=== PATIENT | male | born 1950 | race Caucasian/White ===

== ENCOUNTER 2016-06-22 12:16 | Emergency (ER) | payer MEDICARE, OTHER ==
[~2016-06-22] VITALS: Ht 200.7 cm; Wt 67.0 kg
[~2016-06-22 12:16] MED LIST: ALLO100T PO; ASPI-535 PO; ATOR10TA23 PO; CLOP75TA27 PO; CYCL-319 PO; HYDR-3498 PO; HYDR500C14 PO; IBUP-1542 PO; LEVO750T8 PO; LORA1TAB54 PO; METO-448 PO; NAPR-685 PO; OXYM15SP34 NASAL; TAMS-14 PO
[2016-06-22 12:32] VITALS: Ht 200.7 cm; Wt 67.0 kg
[2016-06-22] MEDS ORDERED: DICLOFENAC SODIUM 37.5 MG/ML VIAL IV STA (13:42)
[2016-06-22 14:25] LABS: ADD SCAN DIFF NO
[2016-06-22 14:29] LABS: BASOPHILS % 0.9 % (0.0-2.0); EOSINOPHILS # 0.1 10^3/ul (0.0-0.5); EOSINOPHILS % 1.7 % (0.0-7.0); HEMATOCRIT 35.7 % (42.0-52.0); HEMOGLOBIN 12.2 g/dl (14.0-18.0); LYMPHOCYTES # 0.9 10^3/ul (0.8-2.9); LYMPHOCYTES % 21.1 % (15.0-51.0); MEAN CORPUSCULAR HEMOGLOBIN 39.6 pg (29.0-33.0); MEAN CORPUSCULAR HGB CONC 34.2 g/dl (32.0-37.0); MEAN CORPUSCULAR VOLUME 115.9 fl (82.0-101.0); MONOCYTE # 0.2 10^3/ul (0.3-0.9); MONOCYTES % 5.7 % (0.0-11.0); NEUTROPHILS % 69.9 % (39.0-77.0); PLATELET COUNT 393 10^3/UL (140-415); RED BLOOD COUNT 3.08 10^6/ul (4.70-6.10); RED CELL DISTRIBUTION WIDTH 19.6 % (11.5-14.5); WHITE BLOOD COUNT 4.2 10^3/ul (4.8-10.8)
[2016-06-22 14:36] LABS: MEAN PLATELET VOLUME 12.3 fl (7.4-10.4)
[2016-06-22 14:38] LABS: ALBUMIN 4.6 g/dl (3.3-4.9)
[2016-06-22 14:40] LABS: ALBUMIN/GLOBULIN RATIO 1.48; BILIRUBIN,INDIRECT 0.7 mg/dl (0-1.1); BILIRUBIN,TOTAL 0.7 mg/dl (0.2-1.3); CREATININE 0.92 mg/dl (0.61-1.24); TOTAL PROTEIN 7.7 g/dl (6.1-8.1)
[2016-06-22 14:41] LABS: CALCIUM 8.7 mg/dl (8.4-10.2)
[2016-06-22 15:10] LABS: URINE BLOOD (Dip) POC Trace-intact (NEGATIVE)
--- NOTE | 2016-06-22 15:49 | RADRPT ---
PROCEDURE: CT Abdomen and Pelvis without contrast. CLINICAL INDICATION: Abdominal pain TECHNIQUE: CT scan of the abdomen and pelvis was performed on a multidetector high-resolution CT s canner without intravenous contrast. Coronal and sagittal reformatted images were obtained from the axial source images. Images were reviewed on a high-resolution PACS workstation. The total exam CTD I equals 8mGy and the total exam DLP equals 439mGy-cm. One or more of the following dose reduction t echniques were used: Automated exposure control, Adjustment of the mA and/or kV according to patient size, and/or use of iterative reconstruction technique. COMPARISON: Abdominal CT 11/05/15 FINDINGS: Evaluation of the solid organs is limited given the lack of intravenous contrast administration. Bibasilar scarring. The liver, adrenals and pancreas are grossly unremarkable. Splenomegaly is unchanged. No focal pericholecystic inflammatory changes. No hydronephrosis. Similar appearance of bilateral nonobstructing renal stones. No bowel obstruction. The appendix is not well visualized but there is no focal inflammatory strand ing in the right lower quadrant. No significant retroperitoneal lymphadenopathy, ascites or evidence of pneumoperitoneum. Degenerative changes of the spine. Mild aortic atherosclerosis. IMPRESSION: Similar appearance of bilateral nonobstructing renal stones since 11/05/15. No evidence of bowel obstruction. Splenomegaly is unchanged from prior. RPTAT: AA .Jarred Figueroa MD, MD Date Time Electronically viewed and signed by .Jarred Figueroa MD, on 06/22/2016 15:49 .T/
[2016-06-22] MEDS ORDERED: CEFTRIAXONE 1 GM/50 ML (PMX) 50 ML IVPB ONE (16:30)
[2016-06-22] MEDS ORDERED: CIPR500T4 PO (17:05)
[2016-06-22] MEDS ORDERED: TRAM50TA2 PO (17:05)
--- NOTE | 2016-06-22 17:08 | ERD ---
ER Documentation Chief Complaint Date/Time DATE: 06/22/16 TIME: 17:07 Chief Complaint LEFT GROIN PAIN X2 DAYS HPI This 65-year-old male complains of left abdominal pain for 2 days. Denies fevers, vomiting, urinary complaints. He has a history of stones and myelodysplasia. Denies constipation or diarrhea ROS All systems reviewed and are negative except as per history of present illness. Medications Home Meds Active Scripts Tramadol HCl (Tramadol HCl) 50 Mg Tablet, 50 MG PO Q4 Y for PAIN, #15 TAB Prov:MAGGIE LOGAN MD 06/22/16 Ciprofloxacin Hcl* (Ciprofloxacin Hcl*) 500 Mg Tablet, 500 MG PO BID for 7 Days , TAB Prov:MAGGIE LOGAN MD 06/22/16 Oxymetazoline Hcl* (Afrin [place]*) 0.05% - 15 Ml [place], 2 SPRAYS NASAL QHS, #1 EA to each nostril Prov:PATTI MC DO 02/01/16 Loratadine/Pseudoephedrine* (Claritin-D* 12 Hr) 5-120 Mg Tab.er.12h, 1 TAB PO Q12, #20 TAB.SA Prov:PATTI MC DO 02/01/16 Levofloxacin* (Levofloxacin*) 750 Mg Tablet, 750 MG PO Q48H for 14 Days Prov:OLIVER PHAN 05/14/14 Reported Medications Ibuprofen* (Ibuprofen*) 600 Mg Tablet, 600 MG PO Q6-8 HOURS, TAB 06/07/14 Hydrocodone Bit-Acetaminophen* ([place]*) 5-325 Mg Tab, 1 TAB PO Q6 Y for PAIN, TAB 06/07/14 Cyclobenzaprine Hcl* (Cyclobenzaprine Hcl*) 10 Mg Tablet, 10 MG PO TID, TAB 06/07/14 Clopidogrel Bisulfate (Clopidogrel) 75 Mg Tablet, 75 MG PO DAILY, TAB 06/07/14 Tamsulosin Hcl* (Flomax*) 0.4 Mg Cap.er.24h, 0.4 MG PO HS, CAP 06/07/14 Naproxen* (Naproxen*) 375 Mg Tablet, 375 MG PO BID, TAB 06/07/14 Metoprolol Tartrate* (Lopressor*) 25 Mg Tab, 25 MG PO DAILY 04/10/13 Hydroxyurea* (Hydrea*) 500 Mg Capsule, 500 MG PO TID 04/10/13 Allopurinol* (Allopurinol*) 100 Mg Tablet, 100 MG PO TID 04/12/12 Atorvastatin (Lipitor) 10 Mg Tablet, 10 MG PO DAILY 10/27/10 Aspirin Ec (Aspir 81) 81 Mg Tablet.dr, 81 MG PO DAILY 10/27/10 Allergies Allergies: Coded Allergies: No Known Allergy (Verified , 06/07/14) PMhx/Soc History of Surgery: Yes (CABG) Anesthesia Reaction: No Hx Neurological Disorder: No Hx Respiratory Disorders: No Hx Cardiac Disorders: Yes (HTN) Hx Psychiatric Problems: No Hx Miscellaneous Medical Probl: Yes (BPH) Hx Alcohol Use: No Hx Substance Use: No Hx Tobacco Use: No Smoking Status: Never smoker Physical Exam Vitals Vital Signs Date Time Temp Pulse Resp B/P Pulse Ox O2 Delivery O2 Flow Rate FiO2 06/22/16 12:32 98.3 67 20 123/66 98 Physical Exam Const: [] Alert, [id number] per Head: Atraumatic Eyes: Normal Conjunctiva ENT: Normal External Ears, Nose and Mouth. Neck: Full range of motion..~ No meningismus. Resp: Clear to auscultation bilaterally Cardio: Regular rate and rhythm, no murmurs Abd: Soft, minimal left lower quadrant tenderness. No tenderness at McBurney 's point no rebound., non distended. Normal bowel sounds Skin: No petechiae or rashes Back: No midline or flank tenderness Ext: No cyanosis, or edema Neur: Awake and alert Psych: Normal Mood and Affect Result Diagram: 06/22/16 1415 06/22/16 1415 Results 24 hrs Laboratory Tests Test 06/22/16 14:15 06/22/16 15:09 White Blood Count 4.210^3/ul Red Blood Count 3.0810^6/ul Hemoglobin 12.2g/dl Hematocrit 35.7% Mean Corpuscular Volume 115.9fl Mean Corpuscular Hemoglobin 39.6pg Mean Corpuscular Hemoglobin Concent 34.2g/dl Red Cell Distribution Width 19.6% Platelet Count 37709^3/UL Mean Platelet Volume 12.3fl Neutrophils % 69.9% Lymphocytes % 21.1% Monocytes % 5.7% Eosinophils % 1.7% Basophils % 0.9% Nucleated Red Blood Cells % 0.0/100WBC Neutrophils # 3.010^3/ul Lymphocytes # 0.910^3/ul Monocytes # 0.210^3/ul Eosinophils # 0.110^3/ul Basophils # 0.010^3/ul Nucleated Red Blood Cells # 0.010^3/ul Sodium Level 138mmol/L Potassium Level 5.0mmol/L Chloride Level 102mmol/L Carbon Dioxide Level 25mmol/L Anion Gap 16 Blood Urea Nitrogen 19mg/dl Creatinine 0.92mg/dl Glucose Level 87mg/dl Calcium Level 8.7mg/dl Total Bilirubin 0.7mg/dl Direct Bilirubin 0.00mg/dl Indirect Bilirubin 0.7mg/dl Aspartate Amino Transf (AST/SGOT) 38IU/L Alanine Aminotransferase (ALT/SGPT) 34IU/L Alkaline Phosphatase 67IU/L Total Protein 7.7g/dl Albumin 4.6g/dl Globulin 3.10g/dl Albumin/Globulin Ratio 1.48 Lipase 44U/L Bedside Urine pH (LAB) 5.5 Bedside Urine Protein (LAB) Negative Bedside Urine Glucose (UA) Negative Bedside Urine Ketones (LAB) Negative Bedside Urine Blood Trace-intact Bedside Urine Nitrite (LAB) Negative Bedside Urine Leukocyte Esterase (L 2+ Current Medications Medications (Trade) Dose Ordered Sig/Tamiko Route PRN Reason Start Time Stop Time Status Last Admin Dose Admin Diclofenac Sodium 37.5 mg 37.5 mg ONCE STAT IV 06/22/16 13:42 06/22/16 13:44 DC Ceftriaxone Sodium (Rocephin) 50 ml @ 100 mls/hr ONCE ONCE IVPB 06/22/16 16:30 06/22/16 16:59 DC 06/22/16 16:13 Procedures/MDM I views obtained. CBC shows signs of chronic myelodysplasia without leukocytosis. CMP is normal. Urine shows 2+ leukocytes and was sent for culture. Patient had a CT scan of the abdomen pelvis noncontrast which shows undescended renal stones with NO additional acute findings. Patient was given Rocephin 1 g IV, and Dolgic IV. Patient signs symptoms of left lower abdominal pain of uncertain etiology with signs of UTI. Doubt this is septic stone as he has no leukocytosis, fever, vomiting and stones are undescended there is no hydronephrosis. Patient will be discharged home with a prescription for Cipro, tramadol instructions for clear fluids instructed to follow-up with primary doctor this week return to the ER for new or worsening symptoms. The patient was stable with no new complaints during the ER course. Clinically, there is no current evidence to suggest meningitis, sepsis, acute abdomen, pneumonia, acute coronary syndrome, pulmonary embolism, or any other emergent condition appearing to require further evaluation or hospitalization. The patient should certainly return for any new or worsening symptoms per the aftercare instructions. They should otherwise follow-up with her primary care doctor for reevaluation this week. Departure Diagnosis: Primary Impression: UTI (urinary tract infection) Urinary tract infection type: acute cystitis Hematuria presence: without hematuria Qualified Code: N30.00 - Acute cystitis without hematuria Additional Impression: Kidney stone Condition: Stable Patient Instructions: Understanding Urinary Tract Infections (UTIs), Kidney Stone, Undescended (No Symptoms) Additional Instructions: CT shows small stones in the kidney but doubt cause of symptoms. There are signs of infection in the urine. Recheck for fevers, vomiting, new or worsening symptoms. Drink plenty of fluids at home. See primary doctor this week for follow-up. MAGGIE LOGAN MD Jun 22, 2016 17:08
[2016-06-22 17:19] VITALS: BP 121/62; PULSE 71; RESP 20; TEMP 98.3
== END 2016-06-22 17:26 | disposition home or self-care (01) ==
LOC: FTE 12:16
DX: N30.00 Acute cystitis without hematuria (principal); N20.0 Calculus of kidney; I10 Essential (primary) hypertension; Z79.82 Long term (current) use of aspirin
CPT/HCPCS: 36415; 74176; 80053; 81003; 83690; 85025; 96374; 99285; J0696

== ENCOUNTER 2016-08-26 11:56 | Emergency (ER) | payer MEDICARE, OTHER ==
[~2016-08-26] VITALS: Wt 70.4 kg
[~2016-08-26 11:56] MED LIST changes: +CIPR500T4 PO; +TRAM50TA2 PO
[2016-08-26 12:29] LABS: ADD SCAN DIFF NO
[2016-08-26] MEDS ORDERED: DIAZEPAM 5 MG/ML SYG IV ONE (12:30)
[2016-08-26] MEDS ORDERED: HYDR-902 PO (12:32)
[2016-08-26] MEDS ORDERED: HYDR500C3 PO (12:33)
[2016-08-26] MEDS ORDERED: METO25TA7 PO (12:34)
[2016-08-26] MEDS ORDERED: OMEP20CA16 PO (12:35)
[2016-08-26] MEDS ORDERED: NIT4 SL (12:36)
[2016-08-26] MEDS ORDERED: DOCU-159 PO (12:36)
[2016-08-26 12:38] LABS: ABNORMAL IP MESSAGE 1; BASOPHIL # 0.1 10^3/ul (0.0-0.1); BASOPHILS % 0.9 % (0.0-2.0); EOSINOPHILS # 0.3 10^3/ul (0.0-0.5); EOSINOPHILS % 2.5 % (0.0-7.0); HEMATOCRIT 31.5 % (42.0-52.0); LYMPHOCYTES # 1.9 10^3/ul (0.8-2.9); LYMPHOCYTES % 16.7 % (15.0-51.0); MEAN CORPUSCULAR HEMOGLOBIN 42.4 pg (29.0-33.0); MEAN CORPUSCULAR HGB CONC 34.6 g/dl (32.0-37.0); MEAN CORPUSCULAR VOLUME 122.6 fl (82.0-101.0); MEAN PLATELET VOLUME 11.5 fl (7.4-10.4); MONOCYTE # 0.5 10^3/ul (0.3-0.9); NEUTROPHIL # 8.4 10^3/ul (1.6-7.5); NEUTROPHILS % 75.2 % (39.0-77.0); RED BLOOD COUNT 2.57 10^6/ul (4.70-6.10)
[2016-08-26 12:48] LABS: INR 1.19; PROTIME 15.2 Sec (12.2-14.2); PT RATIO 1.2
[2016-08-26 12:49] LABS: PARTIAL THROMBOPLASTIN TIME 38.3 Sec (25.0-35.0)
[2016-08-26 12:50] LABS: ANION GAP 13 (8-16); BLOOD UREA NITROGEN 17 mg/dl (7-20); CALCIUM 8.9 mg/dl (8.4-10.2); CARBON DIOXIDE 24 mmol/L (21-31); CHLORIDE 107 mmol/L (97-110); CREATININE 0.98 mg/dl (0.61-1.24); GLUCOSE 86 mg/dl (70-220); POTASSIUM 4.7 mmol/L (3.5-5.1); SODIUM 139 mmol/L (135-144)
[2016-08-26 13:06] LABS: TROPONIN-I < 0.012 ng/ml (0.00-0.12)
--- NOTE | 2016-08-26 13:07 | RADRPT ---
PROCEDURE: Chest x-ray CLINICAL INDICATION: Chest pain TECHNIQUE: Chest single view COMPARISON: 06/07/2014 FINDINGS: As before there post thoracotomy changes. Stable cardiomegaly and mild atherosclerotic aortic calci fication is seen. There is a loop recorder device in the left chest. The pulmonary vessels are nor mal in caliber. The lungs are clear. The costophrenic angles are sharp. The visualized bony thora x is unremarkable. IMPRESSION: 1. Stable mild cardiomegaly and an sclerotic aortic calcification. 2. Loop recorder device. 3. Status post CABG RPTAT: HH .Feliberto Kumar MD, MD Date Time Electronically viewed and signed by .Feliberto Kumar MD, on 08/26/2016 13:06 .W/
[2016-08-26] MEDS ORDERED: ONDANSETRON 4 MG INJ IV STA (13:15)
[2016-08-26] MEDS ORDERED: morphine 4 MG/ML VIAL IV STA (13:15)
--- NOTE | 2016-08-26 13:23 | RADRPT ---
PROCEDURE: CT cervical spine without contrast CLINICAL INDICATION: Neck pain. No trauma. TECHNIQUE: CT scan of the cervical spine was [facility] No IV contrast was administered. Coronal and sagittal reformatted images were obtained from th e axial source images. Images were reviewed on a high-resolution PACS workstation. One or more the f ollowing does reduction techniques were utilized: Automated exposure control, adjustment of the mA/ or kV according to patient's size, or use of iterative reconstruction technique. Exam CTDI = 22.19 m Gy and the DLP = 461.7 mGy-cm. COMPARISON: None available. FINDINGS: There is maintenance of the normal cervical lordosis. Alignment remains intact. No acute fracture or dislocation is seen. The vertebral body heights are preserved. No mass, hematoma, or other soft tissue abnormality is seen. There are multilevel degenerative changes of the cervical spine, manifested by osteophytosis, vacuum disk phenomenon and disc height narrowing, severe at C6-C7 and mild at C4-C5 and C5-C6. Uncovertebr al osteophytes and facet arthropathy result in multilevel foraminal stenosis: at C3-C4 mild bilatera lly, at C4-C5 moderate on the right and mild on the left, at C5-C6 mild bilaterally, and at C6-C7 mi ld to moderate bilaterally. Posterior disk osteophyte complexes contribute to mild to moderate spin al canal narrowing at C6-C7 and mild at C4-C5 and C5-C6. Scarring in bilateral lung apices are noted. IMPRESSION: 1. No acute fracture or subluxation. 2. Multilevel discogenic disease of the cervical spine, severe at C6-C7 and mild at C4-C5 and C5-C6 . 3. Posterior disk osteophyte complexes contribute to mild to moderate spinal canal narrowing at C6- C7 and mild at C4-C5 and C5-C6. 4. Multilevel mild to moderate foraminal stenosis as outlined in details in findings. RPTAT: UU .Haritha Barney MD, MD Date Time Electronically viewed and signed by .Haritha Barney MD, MD on 08/26/2016 13:22 .N/
--- NOTE | 2016-08-26 13:33 | ERD ---
ER Documentation Chief Complaint Date/Time DATE: 08/26/16 TIME: 13:29 Chief Complaint non traumatic left side neck pain, no neuro def. no cp or sob HPI This is a 66-year-old male presents to the emergency room for evaluation of neck pain. The patient states that he has a history of chronic back pain and is taking [place] at home. He states that [place] yesterday and spent 4 hours driving there, and 4 hours driving back. He states that his pain is in the left side of his neck and is an achy pain worse with movement of the neck. He denies any fevers or chills or nausea or vomiting associated with this ROS All systems reviewed and are negative except as per history of present illness. Medications Home Meds Reported Medications Docusate Sodium* (Docusate Sodium*) 100 Mg Capsule, 100 MG PO TID, #60 CAP 08/26/16 Nitroglycerin* (Nitrostat*) 0.4 Mg Tab.subl, 0.4 MG SL Q5MIN Y for CHEST PAIN, BOTTLE 08/26/16 Omeprazole* (Omeprazole*) 20 Mg Capsule.dr, 20 MG PO DAILY, #30 CAP 08/26/16 Metoprolol Succinate* (Toprol XL*) 25 Mg Tab.sr.24h, 25 MG PO BID, #30 TAB 08/26/16 Hydroxyurea* (Hydroxyurea*) 500 Mg Capsule, 1500 MG PO DAILY, CAP 08/26/16 Hydrocodone/Acetaminophen ([place] 10-325 Tablet) 1 Each Tablet, 1 EACH PO Q4, TAB 08/26/16 Ibuprofen* (Ibuprofen*) 600 Mg Tablet, 600 MG PO Q6-8 HOURS, TAB 06/07/14 Tamsulosin Hcl* (Flomax*) 0.4 Mg Cap.er.24h, 0.4 MG PO HS, CAP 06/07/14 Allopurinol* (Allopurinol*) 100 Mg Tablet, 100 MG PO TID 04/12/12 Aspirin Ec (Aspir 81) 81 Mg Tablet.dr, 81 MG PO DAILY 10/27/10 Discontinued Reported Medications Hydrocodone Bit-Acetaminophen* ([place]*) 5-325 Mg Tab, 1 TAB PO Q6 Y for PAIN, TAB 06/07/14 Cyclobenzaprine Hcl* (Cyclobenzaprine Hcl*) 10 Mg Tablet, 10 MG PO TID, TAB 06/07/14 Clopidogrel Bisulfate (Clopidogrel) 75 Mg Tablet, 75 MG PO DAILY, TAB 06/07/14 Naproxen* (Naproxen*) 375 Mg Tablet, 375 MG PO BID, TAB 06/07/14 Metoprolol Tartrate* (Lopressor*) 25 Mg Tab, 25 MG PO DAILY 04/10/13 Hydroxyurea* (Hydrea*) 500 Mg Capsule, 500 MG PO TID 04/10/13 Atorvastatin (Lipitor) 10 Mg Tablet, 10 MG PO DAILY 10/27/10 Discontinued Scripts Tramadol HCl (Tramadol HCl) 50 Mg Tablet, 50 MG PO Q4 Y for PAIN, #15 TAB Prov:MAGGIE LOGAN MD 06/22/16 Ciprofloxacin Hcl* (Ciprofloxacin Hcl*) 500 Mg Tablet, 500 MG PO BID for 7 Days , TAB Prov:MAGGIE LOGAN MD 06/22/16 Oxymetazoline Hcl* (Afrin [place]*) 0.05% - 15 Ml [place], 2 SPRAYS NASAL QHS, #1 EA to each nostril Prov:PATTI MC DO 02/01/16 Loratadine/Pseudoephedrine* (Claritin-D* 12 Hr) 5-120 Mg Tab.er.12h, 1 TAB PO Q12, #20 TAB.SA Prov:PATTI MC DO 02/01/16 Levofloxacin* (Levofloxacin*) 750 Mg Tablet, 750 MG PO Q48H for 14 Days Prov:OLIVER PHAN 05/14/14 Allergies Allergies: Coded Allergies: No Known Allergy (Verified , 08/26/16) PMhx/Soc History of Surgery: Yes (CABG) Anesthesia Reaction: No Hx Neurological Disorder: No Hx Respiratory Disorders: No Hx Cardiac Disorders: Yes (HTN) Hx Psychiatric Problems: No Hx Miscellaneous Medical Probl: Yes (BPH) Hx Alcohol Use: No Hx Substance Use: No Hx Tobacco Use: No Smoking Status: Former smoker Physical Exam Vitals Vital Signs Date Time Temp Pulse Resp B/P Pulse Ox O2 Delivery O2 Flow Rate FiO2 08/26/16 12:08 98.1 67 20 134/75 99 08/26/16 11:59 Nasal Cannula 1 Physical Exam INITIAL VITAL SIGNS: Reviewed by me GENERAL: The patient is well developed and appropriate for usual state of health in no apparent distress HEENT: Pupils equal, round, and reactive to light. EOMI. There is no scleral icterus. NECK: C-spine is soft and supple, there is no meningismus. There is no cervical lymphadenopathy. LUNGS: Clear to auscultation bilaterally. There are no rales, wheezes or rhonchi. HEART: Regular rate and rhythm, no murmurs, clicks, rubs or gallops. ABDOMEN: Soft, non-tender, non-distended. There are bowel sounds in all four quadrants. No rebound or guarding. EXTREMITIES: There is no peripheral cyanosis or edema. No focal swelling or erythema. NEUROLOGICAL: The patient moves all four extremities with 5/5 strength. Cranial nerves II - XII are intact. Normal gait. Alert and oriented SKIN: There is no apparent rash or petechiae. Musculoskeletal: Tender to palpation in the left paraspinal muscles of the cervical spine from C3 to see 7 on the left, no gross step-offs or deformities. HEME/LYMPHATIC: There is no evidence of excessive bruising or lymphedema. PSYCHIATRIC: The patient does not appear anxious or depressed. Result Diagram: 08/26/16 1214 08/26/16 1214 Results 24 hrs Laboratory Tests Test 08/26/16 12:14 White Blood Count 11.210^3/ul Red Blood Count 2.5710^6/ul Hemoglobin 10.9g/dl Hematocrit 31.5% Mean Corpuscular Volume 122.6fl Mean Corpuscular Hemoglobin 42.4pg Mean Corpuscular Hemoglobin Concent 34.6g/dl Red Cell Distribution Width % Platelet Count 922949^3/UL Mean Platelet Volume 11.5fl Neutrophils % 75.2% Lymphocytes % 16.7% Monocytes % 4.0% Eosinophils % 2.5% Basophils % 0.9% Nucleated Red Blood Cells % 0.0/100WBC Neutrophils # 8.410^3/ul Lymphocytes # 1.910^3/ul Monocytes # 0.510^3/ul Eosinophils # 0.310^3/ul Basophils # 0.110^3/ul Nucleated Red Blood Cells # 0.010^3/ul Prothrombin Time 15.2Sec Prothrombin Time Ratio 1.2 INR International Normalized Ratio 1.19 Activated Partial Thromboplast Time 38.3Sec Sodium Level 139mmol/L Potassium Level 4.7mmol/L Chloride Level 107mmol/L Carbon Dioxide Level 24mmol/L Anion Gap 13 Blood Urea Nitrogen 17mg/dl Creatinine 0.98mg/dl Glucose Level 86mg/dl Calcium Level 8.9mg/dl Troponin I < 0.012ng/ml Current Medications Medications (Trade) Dose Ordered Sig/Tamiko Route PRN Reason Start Time Stop Time Status Last Admin Dose Admin Diazepam (Valium) 5 mg ONCE ONCE IV 08/26/16 12:30 08/26/16 12:31 DC 08/26/16 12:14 Ondansetron HCl (Zofran Inj) 4 mg ONCE STAT IV 08/26/16 13:15 08/26/16 13:17 DC 08/26/16 13:22 Morphine Sulfate (morphine) 4 mg ONCE STAT IV 08/26/16 13:15 08/26/16 13:17 DC 08/26/16 13:24 Procedures/MDM Chest X-ray 1V Interpreted by me: Soft Tissue: No acute abnormalities Bones: No acute abnormalities Mediastinum/Cardiac Silhouette/Lungs: [No acute abnormalities] CT cervical spine without: 1. No acute fracture or subluxation. 2. Multilevel discogenic disease of the cervical spine, severe at C6-C7 and mild at C4-C5 and C5-C6. 3. Posterior disk osteophyte complexes contribute to mild to moderate spinal canal narrowing at C6-C7 and mild at C4-C5 and C5-C6. 4. Multilevel mild to moderate foraminal stenosis as outlined in details in findings. EKG: Rate/Rhythm: [Normal Sinus Rhythm] QRS, ST, T-waves: [No changes consistent w/ acute ischemia] Impression: [No evidence of ischemia or arrhythmia] This is a 66-year-old male who presents to the emergency room for evaluation of neck pain. When I evaluated his pain the patient had pain on the left side of his neck, no meningismus, negative Kernig sign, negative Brudzinski sign. The patient was afebrile. Lab work including a troponin is within normal limits except for an elevated platelet count. This patient was given volume and upon my reevaluation he states is feeling much better. CT of the cervical spine does not reveal any acute fractures. This patient will be discharged at this time with a prescription for Valium to take at night before he goes to sleep. I advised him he needs follow-up with his primary care physician. He does verbalize understanding. Departure Diagnosis: Primary Impression: Cervical strain, acute Additional Impressions: Neck pain Macrocytic anemia Condition: Stable DONNA ODELL DO Aug 26, 2016 13:33
[2016-08-26] MEDS ORDERED: DIAZ-90 PO (13:34)
[2016-08-26 13:38] LABS: PLATELET COUNT 1162 10^3/UL (140-415)
[2016-08-26 13:39] LABS: HEMOGLOBIN 10.9 g/dl (14.0-18.0)
[2016-08-26 14:00] VITALS: BP 133/60; PULSE 66; RESP 18; TEMP 98.1
[2016-08-27 17:42] LABS: WHITE BLOOD COUNT 11.2 10^3/ul (4.8-10.8)
== END 2016-08-26 14:51 | disposition home or self-care (01) ==
LOC: E/R 11:56
DX: S16.1XXA Strain of muscle, fascia and tendon at neck level, initial encounter (principal); D53.9 Nutritional anemia, unspecified; I10 Essential (primary) hypertension; R07.9 Chest pain, unspecified; X50.9XXA Other and unspecified overexertion or strenuous movements or postures, initial encounter; Y92.59 Other trade areas as the place of occurrence of the external cause; Z79.82 Long term (current) use of aspirin; Z95.1 Presence of aortocoronary bypass graft; Z87.891 Personal history of nicotine dependence
CPT/HCPCS: 71010; 72125; 80048; 84484; 85025; 85610; 85730; 93005; J2270; J2405; J3360; 36415; 96374; 96375

== ENCOUNTER 2016-08-26 20:37 | Emergency (ER) | payer MEDICARE, OTHER ==
[~2016-08-26] VITALS: Ht 170.2 cm; Wt 65.9 kg
[~2016-08-26 20:37] MED LIST changes: +DIAZ-90 PO; +DOCU-159 PO; +HYDR-902 PO; +HYDR500C3 PO; +METO25TA7 PO; +NIT4 SL; +OMEP20CA16 PO
[2016-08-26 21:29] VITALS: Ht 170.2 cm; Wt 65.9 kg
--- NOTE | 2016-08-27 03:15 | ERD ---
ER Documentation Chief Complaint Date/Time DATE: 08/27/16 TIME: 03:12 Chief Complaint pt seen here this morning for s/s, pt has not taken rx HPI 58-year-old male patient with no significant past medical history presents to the ED complaining of consistent neck pain. Patient was here earlier today on August 26, 2016 and received a full workup consisting of CT and cardiac workup which was negative for any cardiac abnormalities or fractures or dislocations. Patient was sent home with Valium and did not take the medication. Reports that he has been waiting in the ER for 3 hours and states that his pain is better. Reports that this is the same left-sided neck pain that he presented with earlier yesterday. Denies any fever, chills, neck stiffness, nausea, vomiting, chest pain, shortness of breath. States that he had some slight headache that was radiating from the neck region on the left side. Reports that dizziness is positional when he turns his head. Denies any head or neck injuries. ROS All systems reviewed and are negative except as per history of present illness. Medications Home Meds Active Scripts Diazepam* (Valium*) 5 Mg Tablet, 5 MG PO QHS Y for MUSCLE SPASMS, #7 TAB Prov:DONNA ODELL DO 08/26/16 Reported Medications Docusate Sodium* (Docusate Sodium*) 100 Mg Capsule, 100 MG PO TID, #60 CAP 08/26/16 Nitroglycerin* (Nitrostat*) 0.4 Mg Tab.subl, 0.4 MG SL Q5MIN Y for CHEST PAIN, BOTTLE 08/26/16 Omeprazole* (Omeprazole*) 20 Mg Capsule.dr, 20 MG PO DAILY, #30 CAP 08/26/16 Metoprolol Succinate* (Toprol XL*) 25 Mg Tab.sr.24h, 25 MG PO BID, #30 TAB 08/26/16 Hydroxyurea* (Hydroxyurea*) 500 Mg Capsule, 1500 MG PO DAILY, CAP 08/26/16 Hydrocodone/Acetaminophen ([place] 10-325 Tablet) 1 Each Tablet, 1 EACH PO Q4, TAB 08/26/16 Ibuprofen* (Ibuprofen*) 600 Mg Tablet, 600 MG PO Q6-8 HOURS, TAB 06/07/14 Tamsulosin Hcl* (Flomax*) 0.4 Mg Cap.er.24h, 0.4 MG PO HS, CAP 06/07/14 Allopurinol* (Allopurinol*) 100 Mg Tablet, 100 MG PO TID 04/12/12 Aspirin Ec (Aspir 81) 81 Mg Tablet.dr, 81 MG PO DAILY 10/27/10 Discontinued Reported Medications Hydrocodone Bit-Acetaminophen* ([place]*) 5-325 Mg Tab, 1 TAB PO Q6 Y for PAIN, TAB 06/07/14 Cyclobenzaprine Hcl* (Cyclobenzaprine Hcl*) 10 Mg Tablet, 10 MG PO TID, TAB 06/07/14 Clopidogrel Bisulfate (Clopidogrel) 75 Mg Tablet, 75 MG PO DAILY, TAB 06/07/14 Naproxen* (Naproxen*) 375 Mg Tablet, 375 MG PO BID, TAB 06/07/14 Metoprolol Tartrate* (Lopressor*) 25 Mg Tab, 25 MG PO DAILY 04/10/13 Hydroxyurea* (Hydrea*) 500 Mg Capsule, 500 MG PO TID 04/10/13 Atorvastatin (Lipitor) 10 Mg Tablet, 10 MG PO DAILY 10/27/10 Discontinued Scripts Tramadol HCl (Tramadol HCl) 50 Mg Tablet, 50 MG PO Q4 Y for PAIN, #15 TAB Prov:MAGGIE LOGAN MD 06/22/16 Ciprofloxacin Hcl* (Ciprofloxacin Hcl*) 500 Mg Tablet, 500 MG PO BID for 7 Days , TAB Prov:MAGGIE LOGAN MD 06/22/16 Oxymetazoline Hcl* (Afrin [place]*) 0.05% - 15 Ml [place], 2 SPRAYS NASAL QHS, #1 EA to each nostril Prov:PATTI MC DO 02/01/16 Loratadine/Pseudoephedrine* (Claritin-D* 12 Hr) 5-120 Mg Tab.er.12h, 1 TAB PO Q12, #20 TAB.SA Prov:PATTI MC DO 02/01/16 Levofloxacin* (Levofloxacin*) 750 Mg Tablet, 750 MG PO Q48H for 14 Days Prov:OLIVER PHAN 05/14/14 Allergies Allergies: Coded Allergies: No Known Allergy (Verified , 08/26/16) PMhx/Soc History of Surgery: Yes (CABG) Anesthesia Reaction: No Hx Neurological Disorder: No Hx Respiratory Disorders: No Hx Cardiac Disorders: Yes (HTN) Hx Psychiatric Problems: No Hx Miscellaneous Medical Probl: Yes (BPH) Hx Alcohol Use: No Hx Substance Use: No Hx Tobacco Use: No Smoking Status: Never smoker Physical Exam Vitals Vital Signs Date Time Temp Pulse Resp B/P Pulse Ox O2 Delivery O2 Flow Rate FiO2 08/26/16 21:29 98.7 63 20 142/69 100 Physical Exam Const: [id number], well-nourished. In no acute distress. Head: Atraumatic, normocephalic Eyes: Normal Conjunctiva without injection. No purulent discharge. PERRL. EOMI ENT: Normal external ear. Ear canal without erythema. Tympanic membrane pearly mahajan without effusion or bulging. Nasal canal clear with normal turbinates. Moist oropharynx without tonsillar exudates. Non-erythematous pharynx. Uvula midline. No drooling. No trismus. Neck: Full range of motion. No meningismus. No cervical lymphadenopathy. Resp: Clear to auscultation bilaterally. No wheezing, rhonchi, rales, or crackles. No accessory muscle use. No retractions. Cardio: Regular rate and rhythm. No murmurs, rubs or gallops. Abd: Soft, non tender, non distended. Normal bowel sounds. No palpable masses. No rebound tenderness. No guarding. Skin: No petechiae or rashes Back: No midline tenderness. No CVA tenderness. Ext: No cyanosis, or edema. Neur: Awake and alert. Psych: Normal Mood and Affect Procedures/MDM This is a 58-year-old male patient with no significant past medical history presents to the ED complaining of left sided neck pain and still presents with the same pain that he presented with on August 26, 2016. Patient had a negative workup. No leukocytosis. No anemia. CT was negative for any fractures or dislocations. No Kernig's or Brudzinski sign noted. No meningismus. Patient' s dizziness and headache could likely be deriving from the neck region. However a CT of the brain without contrast was ordered to further evaluate patient. Patient eloped prior to receiving CT and did not receive his discharge medications. Patient was neurologically intact. There is low suspicion for an right intracranial bleed, subarachnoid hemorrhage, meningitis, TIA, stroke, subdural hematoma, epidural hematoma, seizures or other emergent conditions. Departure Diagnosis: Primary Impression: Neck pain Condition: Stable Referrals: PENDING SALE TO [facility] YOU HAVE RECEIVED A MEDICAL SCREENING EXAM AND THE RESULTS INDICATE THAT YOU DO NOT HAVE A CONDITION THAT REQUIRES URGENT TREATMENT IN THE EMERGENCY DEPARTMENT. FURTHER EVALUATION AND TREATMENT OF YOUR CONDITION CAN WAIT UNTIL YOU ARE SEEN IN YOUR DOCTORS OFFICE WITHIN THE NEXT 1-2 DAYS. IT IS YOUR RESPONSIBILITY TO MAKE AN APPOINTMENT FOR FOLOW-UP CARE. IF YOU HAVE A PRIMARY DOCTOR --you should call your primary doctor and schedule an appointment IF YOU DO NOT HAVE A PRIMARY DOCTOR YOU CAN CALL OUR PHYSICIAN REFERRAL HOTLINE AT IF YOU CAN NOT AFFORD TO SEE A PHYSICIAN YOU CAN CHOSE FROM THE FOLLOWING [facility] [address] [facility]. [facility] [address] [facility] [address] [facility] [facility] [address] [facility] [address] [facility]. [facility] [address] [facility]. [facility] YOU HAVE RECEIVED A MEDICAL SCREENING EXAM AND THE RESULTS INDICATE THAT YOU DO NOT HAVE A CONDITION THAT REQUIRES URGENT TREATMENT IN THE EMERGENCY DEPARTMENT. FURTHER EVALUATION AND TREATMENT OF YOUR CONDITION CAN WAIT UNTIL YOU ARE SEEN IN YOUR DOCTORS OFFICE WITHIN THE NEXT 1-2 DAYS. IT IS YOUR RESPONSIBILITY TO MAKE AN APPOINTMENT FOR FOLOW-UP CARE. IF YOU HAVE A PRIMARY DOCTOR --you should call your primary doctor and schedule and appointment IF YOU DO NOT HAVE A PRIMARY DOCTOR YOU CAN CALL OUR PHYSICIAN REFERRAL HOTLINE AT . IF YOU CAN NOT AFFORD TO SEE A PHYSICIAN YOU CAN CHOSE FROM THE FOLLOWING [facility]: [facility] [address] [place] [address] [facility] [address] [place] [address] [facility] [address] [place] [address] [facility] EBONI SAVAGE PA-C Aug 27, 2016 03:15
== END 2016-08-26 23:23 | disposition left against medical advice (07) ==
LOC: FTE 20:37 → E/R 23:23
DX: M54.2 Cervicalgia (principal); I10 Essential (primary) hypertension; Z79.82 Long term (current) use of aspirin; Z95.1 Presence of aortocoronary bypass graft
CPT/HCPCS: 99283

== ENCOUNTER 2017-01-08 01:59 | Emergency (ER) | payer MEDICARE, OTHER ==
[~2017-01-08] VITALS: Ht 177.8 cm; Wt 67.0 kg
[~2017-01-08 01:59] MED LIST changes: -ATOR10TA23 PO; -CIPR500T4 PO; -CLOP75TA27 PO; -CYCL-319 PO; -HYDR-3498 PO; -HYDR500C14 PO; -LEVO750T8 PO; -LORA1TAB54 PO; +METO-335 PO; -METO-448 PO; -METO25TA7 PO; -NAPR-685 PO; -OXYM15SP34 NASAL; -TRAM50TA2 PO
[2017-01-08 02:06] VITALS: Ht 177.8 cm; Wt 67.0 kg
[2017-01-08 02:15] VITALS: TEMP 98.8
--- NOTE | 2017-01-08 02:18 | ERA ---
ER Documentation Chief Complaint Date/Time DATE: 01/08/17 TIME: 02:17 Chief Complaint weakness, cough x 10 days HPI The patient is a 66-year-old male, presenting to the ER because of persistent cough for the last 10 days, his fever, chills, neck pain, chest pain with exertion/vomiting/diaphoresis, abdominal pain, vomiting, dysuria, diarrhea. He complains of generalized weakness and chest discomfort with the cough. He denies smoking nor drinking Past Medical history: Anxiety, hypertension, BPH, gout, CAD Past surgical history: CABG ROS All systems reviewed and are negative except as per history of present illness. Medications Home Meds Active Scripts Albuterol Sulfate* (Proair HFA*) 8.5 Gm Hfa.aer.ad, 2 PUFF INH Q4, #1 INHALER Prov:NATHALIA GALARZA MD 01/08/17 Dextromethorphan Hb-Promethazine Hcl* (Promethazine DM* Syrup) 473 Ml Syrup, 10 ML PO Q6 Y for COUGH, #120 ML Prov:NATHALIA GALARZA MD 01/08/17 Azithromycin* (Zithromax*) 250 Mg Tablet, 250 MG PO .ZPACK DIRECTED, #6 TAB TAKE 500 MG (2 TABS) THE FIRST DAY THEN 250 MG (1 TAB) DAYS 2-5 Prov:NATHALIA GALARZA MD 01/08/17 Diazepam* (Valium*) 5 Mg Tablet, 5 MG PO QHS Y for MUSCLE SPASMS, #7 TAB Prov:DONNA ODELL DO 08/26/16 Reported Medications Tramadol Hcl* (Ultram*) 50 Mg Tablet, 50 MG PO Q6H Y for PAIN, TAB 01/08/17 Dicyclomine Hcl* (Bentyl*) 10 Mg Capsule, 10 MG PO QID, CAP 01/08/17 Docusate Sodium* (Docusate Sodium*) 100 Mg Capsule, 100 MG PO TID, #60 CAP 08/26/16 Nitroglycerin* (Nitrostat*) 0.4 Mg Tab.subl, 0.4 MG SL Q5MIN Y for CHEST PAIN, BOTTLE 08/26/16 Omeprazole* (Omeprazole*) 20 Mg Capsule.dr, 20 MG PO DAILY, #30 CAP 08/26/16 Metoprolol Succinate* (Toprol XL*) 25 Mg Tab.sr.24h, 25 MG PO BID, #30 TAB 08/26/16 Hydroxyurea* (Hydroxyurea*) 500 Mg Capsule, 1500 MG PO DAILY, CAP 08/26/16 Hydrocodone/Acetaminophen ([place] 10-325 Tablet) 1 Each Tablet, 1 EACH PO Q4, TAB 08/26/16 Ibuprofen* (Ibuprofen*) 600 Mg Tablet, 600 MG PO Q6-8 HOURS, TAB 06/07/14 Tamsulosin Hcl* (Flomax*) 0.4 Mg Cap.er.24h, 0.4 MG PO HS, CAP 06/07/14 Allopurinol* (Allopurinol*) 100 Mg Tablet, 100 MG PO TID 04/12/12 Aspirin Ec (Aspir 81) 81 Mg Tablet.dr, 81 MG PO DAILY 10/27/10 Allergies Allergies: Coded Allergies: No Known Allergy (Verified , 08/26/16) PMhx/Soc History of Surgery: Yes (CABG) Anesthesia Reaction: No Hx Neurological Disorder: No Hx Respiratory Disorders: No Hx Cardiac Disorders: Yes (HTN) Hx Psychiatric Problems: No Hx Miscellaneous Medical Probl: Yes (BPH) Hx Alcohol Use: No Hx Substance Use: No Hx Tobacco Use: No Physical Exam Vitals Vital Signs Date Time Temp Pulse Resp B/P Pulse Ox O2 Delivery O2 Flow Rate FiO2 01/08/17 04:00 74 16 90/69 100 Room Air 01/08/17 03:00 82 16 102/55 95 Room Air 01/08/17 02:30 74 22 97 21 01/08/17 02:15 Nasal Cannula 2 01/08/17 02:15 98.8 84 15 111/87 98 Room Air 01/08/17 02:06 97.8 67 20 117/60 97 Physical Exam Const: No acute distress. Head: Atraumatic. Eyes: Normal Conjunctiva. ENT: Normal External Ears, Nose and Mouth. Neck: Full range of motion. No meningismus. Resp: Bilateral expiratory wheezes and rhonchi Cardio: Regular rate and rhythm. Abd: Soft, non distended, normal bowel sounds, non tender. Skin: No petechiae or rashes. Back: No midline or flank tenderness. Ext: No cyanosis, or edema. Neur: Awake and alert. No focal deficit Psych: Normal Mood and Affect. Result Diagram: 10/14/17 0250 10/14/17 0250 Results 24 hrs Laboratory Tests Test 01/08/17 02:50 White Blood Count 4.210^3/ul Red Blood Count 2.5410^6/ul Hemoglobin 10.5g/dl Hematocrit 30.1% Mean Corpuscular Volume 118.5fl Mean Corpuscular Hemoglobin 41.3pg Mean Corpuscular Hemoglobin Concent 34.9g/dl Red Cell Distribution Width 13.4% Platelet Count 18285^3/UL Mean Platelet Volume 12.3fl Neutrophils % 69.8% Lymphocytes % 21.3% Monocytes % 7.2% Eosinophils % 0.7% Basophils % 0.5% Nucleated Red Blood Cells % 0.0/100WBC Neutrophils # 2.910^3/ul Lymphocytes # 0.910^3/ul Monocytes # 0.310^3/ul Eosinophils # 0.010^3/ul Basophils # 0.010^3/ul Nucleated Red Blood Cells # 0.010^3/ul Prothrombin Time 14.4Sec Prothrombin Time Ratio 1.1 INR International Normalized Ratio 1.12 Activated Partial Thromboplast Time 39.6Sec Sodium Level 140mmol/L Potassium Level 4.8mmol/L Chloride Level 104mmol/L Carbon Dioxide Level 26mmol/L Anion Gap 15 Blood Urea Nitrogen 17mg/dl Creatinine 1.15mg/dl Glucose Level 94mg/dl Lactic Acid Level 0.8mmol/L Calcium Level 8.6mg/dl Total Bilirubin 0.4mg/dl Direct Bilirubin 0.00mg/dl Indirect Bilirubin 0.4mg/dl Aspartate Amino Transf (AST/SGOT) 15IU/L Alanine Aminotransferase (ALT/SGPT) 25IU/L Alkaline Phosphatase 66IU/L Troponin I < 0.012ng/ml Total Protein 6.3g/dl Albumin 3.8g/dl Globulin 2.50g/dl Albumin/Globulin Ratio 1.52 Current Medications Medications (Trade) Dose Ordered Sig/Tamiko Route PRN Reason Start Time Stop Time Status Last Admin Dose Admin Levalbuterol (Xopenex Neb) 1.25 mg ONCE ONCE [facility] 01/08/17 02:30 01/08/17 02:31 DC 01/08/17 02:32 Ipratropium [place] (Atrovent 0.02% (Neb)) 0.5 mg ONCE ONCE [facility] 01/08/17 02:30 01/08/17 02:31 DC 01/08/17 02:35 Procedures/MDM [place] [id number] Radiology Main Line: [phone] DIAGNOSTIC IMAGING REPORT Patient: MARIELOS ENGLISH : 1950 Age: 66 Sex: M MR #: [id number] DOS: 01/08/17 0223 Ordering MD: NATHALIA GALARZA MD Location: E/R Room/Bed: PROCEDURE: Chest. CLINICAL INDICATION: Chest pain. TECHNIQUE: Single frontal view of the chest was obtained. COMPARISON: 08/26/2016. FINDINGS: Mediasternotomy wires are present. The cardiac silhouette is enlarged. The aortic arch is calcified. There is no focal consolidation, vascular congestion or pleural effusion. There is no pneumothorax. IMPRESSION: Mild cardiomegaly, stable. Aortic atherosclerosis. .Som Mercer MD, Date Time Electronically viewed and signed by .Som Mercer MD, MD on 01/08/2017 03:55 .T/ CC: NATHALIA GALARZA MD EKG: Read by emergency physician Rate/Rhythm: Normal Sinus Rhythm 87 beats/min QRS, ST, T-waves: No ST elevation, no T inversion, sinus arrhythmia, PVC Impression: Abnormal EKG MEDICAL MAKING DECISION: The patient is a 66-year-old male, resenting with acute bronchitis with wheezing. He was treated with Xopenex 1.25 mg and Atrovent 0.5 mg nebulizer for wheezing with good response The differential diagnoses considered include but are not limited to asthma, COPD, pneumonia, pulmonary embolus, pleural effusion, congestive heart failure. Departure Diagnosis: Primary Impression: Bronchitis Additional Impression: Anemia Condition: Good Comments He was discharged with Zithromax, Phenergan DM, albuterol MDI I discussed the findings with the patient. I advised the patient to follow-up with the primary physician in about 1-2 days, sooner if needed and return if any concern. NATHALIA GALARZA MD Jan 08, 2017 02:18
[2017-01-08] MEDS ORDERED: IPRATROPIUM (NEB) 0.5 MG/2.5 ML AMP HHN ONE (02:30)
[2017-01-08] MEDS ORDERED: LEVALBUTEROL (NEB) 1.25 MG/0.5 ML AMP HHN ONE (02:30)
[2017-01-08 03:21] LABS: BASOPHILS % 0.5 % (0.0-2.0); EOSINOPHILS % 0.7 % (0.0-7.0); HEMATOCRIT 30.1 % (42.0-52.0); HEMOGLOBIN 10.5 g/dl (14.0-18.0); LYMPHOCYTES # 0.9 10^3/ul (0.8-2.9); LYMPHOCYTES % 21.3 % (15.0-51.0); MEAN CORPUSCULAR HEMOGLOBIN 41.3 pg (29.0-33.0); MEAN CORPUSCULAR HGB CONC 34.9 g/dl (32.0-37.0); MEAN CORPUSCULAR VOLUME 118.5 fl (82.0-101.0); MEAN PLATELET VOLUME 12.3 fl (7.4-10.4); MONOCYTE # 0.3 10^3/ul (0.3-0.9); MONOCYTES % 7.2 % (0.0-11.0); NEUTROPHIL # 2.9 10^3/ul (1.6-7.5); NEUTROPHILS % 69.8 % (39.0-77.0); PLATELET COUNT 354 10^3/UL (140-415); RED BLOOD COUNT 2.54 10^6/ul (4.70-6.10); RED CELL DISTRIBUTION WIDTH 13.4 % (11.5-14.5); WHITE BLOOD COUNT 4.2 10^3/ul (4.8-10.8)
--- NOTE | 2017-01-08 03:55 | RADRPT ---
PROCEDURE: Chest. CLINICAL INDICATION: Chest pain. TECHNIQUE: Single frontal view of the chest was obtained. COMPARISON: 08/26/2016. FINDINGS: Mediasternotomy wires are present. The cardiac silhouette is enlarged. The aortic arch is calcified . There is no focal consolidation, vascular congestion or pleural effusion. There is no pneumothor ax. IMPRESSION: Mild cardiomegaly, stable. Aortic atherosclerosis. .Som Mercer MD, MD Date Time Electronically viewed and signed by .Som Mercer MD, on 01/08/2017 03:55 .T/
[2017-01-08 03:56] LABS: INR 1.12; PROTIME 14.4 Sec (12.2-14.2); PT RATIO 1.1
[2017-01-08 03:57] LABS: PARTIAL THROMBOPLASTIN TIME 39.6 Sec (25.0-35.0)
[2017-01-08 03:59] LABS: ALANINE AMINOTRANSFERASE 25 IU/L (13-69); ALBUMIN 3.8 g/dl (3.3-4.9); ALBUMIN/GLOBULIN RATIO 1.52; ALKALINE PHOSPHATASE 66 IU/L (42-121); ANION GAP 15 (8-16); ASPARTATE AMINO TRANSFERASE 15 IU/L (15-46); BILIRUBIN,INDIRECT 0.4 mg/dl (0-1.1); BILIRUBIN,TOTAL 0.4 mg/dl (0.2-1.3); BLOOD UREA NITROGEN 17 mg/dl (7-20); CALCIUM 8.6 mg/dl (8.4-10.2); CARBON DIOXIDE 26 mmol/L (21-31); CHLORIDE 104 mmol/L (97-110); CREATININE 1.15 mg/dl (0.61-1.24); GLUCOSE 94 mg/dl (70-220); POTASSIUM 4.8 mmol/L (3.5-5.1); SODIUM 140 mmol/L (135-144); TOTAL PROTEIN 6.3 g/dl (6.1-8.1)
[2017-01-08 04:00] VITALS: BP 90/69; PULSE 74; RESP 16
[2017-01-08] MEDS ORDERED: DICY10CA60 PO (04:05)
[2017-01-08] MEDS ORDERED: TRAM-40 PO (04:05)
[2017-01-08 04:20] LABS: TROPONIN-I < 0.012 ng/ml (0.00-0.12)
[2017-01-08] MEDS ORDERED: AZIT250T94 PO (04:32)
[2017-01-08] MEDS ORDERED: D-ME473S2 PO (04:33)
[2017-01-08] MEDS ORDERED: ALBU8.5H3 INH (04:34)
== END 2017-01-08 04:42 | disposition home or self-care (01) ==
LOC: E/R 01:59
DX: J20.9 Acute bronchitis, unspecified (principal); R40.2252 Coma scale, best verbal response, oriented, at arrival to emergency department; D64.9 Anemia, unspecified; I10 Essential (primary) hypertension; I25.10 Atherosclerotic heart disease of native coronary artery without angina pectoris; R40.2142 Coma scale, eyes open, spontaneous, at arrival to emergency department; R40.2362 Coma scale, best motor response, obeys commands, at arrival to emergency department; R07.9 Chest pain, unspecified; Z95.1 Presence of aortocoronary bypass graft; Z79.82 Long term (current) use of aspirin
CPT/HCPCS: 36415; 71010; 80053; 83605; 84484; 85025; 85610; 85730; 87040; 94664

== ENCOUNTER 2017-03-15 22:08 | Observation (INO) | payer MEDICARE, OTHER ==
[~2017-03-15] VITALS: Ht 170.2 cm; Wt 66.9 kg
[~2017-03-15 22:08] MED LIST changes: +ALBU8.5H3 INH; +AZIT250T94 PO; +D-ME473S2 PO; +DICY10CA60 PO; -NIT4 SL; +NITR0.4T39 SL; +TRAM-40 PO
--- NOTE | 2017-03-15 22:48 | RADRPT ---
PROCEDURE: Chest. CLINICAL INDICATION: Chest pain. TECHNIQUE: Single frontal view of the chest was obtained. COMPARISON: 01/08/2017. FINDINGS: Mediasternotomy wires are present. The cardiac silhouette is enlarged. The aortic arch is calcified . There is no focal consolidation, vascular congestion or pleural effusion. There is no pneumothor ax. IMPRESSION: Mild cardiomegaly and aortic atherosclerosis. .Som Mercer MD, MD Date Time Electronically viewed and signed by .Som Mercer MD, MD on 03/15/2017 22:47 .T/
[2017-03-15 23:00] LABS: ABNORMAL IP MESSAGE 1; BASOPHILS % 0.3 % (0.0-2.0); EOSINOPHILS % 1.2 % (0.0-7.0); HEMATOCRIT 24.3 % (42.0-52.0); HEMOGLOBIN 8.4 g/dl (14.0-18.0); LYMPHOCYTES # 1.3 10^3/ul (0.8-2.9); LYMPHOCYTES % 37.8 % (15.0-51.0); MEAN CORPUSCULAR HEMOGLOBIN 42.9 pg (29.0-33.0); MEAN CORPUSCULAR HGB CONC 34.6 g/dl (32.0-37.0); MEAN PLATELET VOLUME 11.7 fl (7.4-10.4); MONOCYTE # 0.3 10^3/ul (0.3-0.9); MONOCYTES % 7.4 % (0.0-11.0); NEUTROPHIL # 1.8 10^3/ul (1.6-7.5); NEUTROPHILS % 53.3 % (39.0-77.0); PLATELET COUNT 566 10^3/UL (140-415); POSITIVE DIFF @See below; WHITE BLOOD COUNT 3.4 10^3/ul (4.8-10.8)
[2017-03-15 23:07] LABS: RED BLOOD COUNT 1.96 10^6/ul (4.70-6.10)
[2017-03-15 23:17] LABS: INR 1.12; PROTIME 14.6 Sec (11.9-14.9); PT RATIO 1.1
[2017-03-15 23:19] LABS: PARTIAL THROMBOPLASTIN TIME 37.8 Sec (25.0-35.0)
[2017-03-15 23:22] LABS: ALANINE AMINOTRANSFERASE 26 IU/L (13-69); ALBUMIN 3.9 g/dl (3.3-4.9); ALKALINE PHOSPHATASE 58 IU/L (42-121); ANION GAP 14 (8-16); ASPARTATE AMINO TRANSFERASE 28 IU/L (15-46); BILIRUBIN,INDIRECT 0.4 mg/dl (0-1.1); BILIRUBIN,TOTAL 0.4 mg/dl (0.2-1.3); BLOOD UREA NITROGEN 21 mg/dl (7-20); CARBON DIOXIDE 25 mmol/L (21-31); CHLORIDE 102 mmol/L (97-110); CREATININE 1.39 mg/dl (0.61-1.24); GLUCOSE 92 mg/dl (70-220); POTASSIUM 4.3 mmol/L (3.5-5.1); SODIUM 137 mmol/L (135-144); TOTAL PROTEIN 6.9 g/dl (6.1-8.1)
[2017-03-15 23:34] LABS: TROPONIN-I < 0.012 ng/ml (0.00-0.12)
[2017-03-16] MEDS ORDERED: INSU100I33 SC (00:30)
--- NOTE | 2017-03-16 01:26 | ERD ---
ER Documentation Chief Complaint Chief Complaint weakness x 1 week HPI This is a 66-year-old male here for generalized weakness for the past week. Denies any fevers or chills. Denies any nausea vomiting. No chest pain. No other current complaints. ROS All systems reviewed and are negative except as per history of present illness. Medications Home Meds Active Scripts Albuterol Sulfate* (Proair HFA*) 8.5 Gm Hfa.aer.ad, 2 PUFF INH Q4, #1 INHALER Prov:NATHALIA GALARZA MD 01/08/17 Dextromethorphan Hb-Promethazine Hcl* (Promethazine DM* Syrup) 473 Ml Syrup, 10 ML PO Q6 Y for COUGH, #120 ML Prov:NATHALIA GALARZA MD 01/08/17 Azithromycin* (Zithromax*) 250 Mg Tablet, 250 MG PO .ZPACK DIRECTED, #6 TAB TAKE 500 MG (2 TABS) THE FIRST DAY THEN 250 MG (1 TAB) DAYS 2-5 Prov:NATHALIA GALARZA MD 01/08/17 Diazepam* (Valium*) 5 Mg Tablet, 5 MG PO QHS Y for MUSCLE SPASMS, #7 TAB Prov:DONNA ODELL DO 08/26/16 Reported Medications Insulin Glargine,Hum.rec.anlog (Basaglar Kwikarjun U-100) 100 Unit/1 Ml Insuln.pen , 10 UNIT SC QHS 03/16/17 Tramadol Hcl* (Ultram*) 50 Mg Tablet, 50 MG PO Q6H Y for PAIN, TAB 01/08/17 Dicyclomine Hcl* (Bentyl*) 10 Mg Capsule, 10 MG PO QID, CAP 01/08/17 Docusate Sodium* (Docusate Sodium*) 100 Mg Capsule, 100 MG PO TID, #60 CAP 08/26/16 Nitroglycerin* (Nitrostat*) 0.4 Mg Tab.subl, 0.4 MG SL Q5MIN Y for CHEST PAIN, BOTTLE 08/26/16 Omeprazole* (Omeprazole*) 20 Mg Capsule.dr, 20 MG PO DAILY, #30 CAP 08/26/16 Metoprolol Succinate* (Toprol XL*) 25 Mg Tab.sr.24h, 25 MG PO BID, #30 TAB 08/26/16 Hydroxyurea* (Hydroxyurea*) 500 Mg Capsule, 1500 MG PO DAILY, CAP 08/26/16 Hydrocodone/Acetaminophen ([place] 10-325 Tablet) 1 Each Tablet, 1 EACH PO Q4, TAB 08/26/16 Ibuprofen* (Ibuprofen*) 600 Mg Tablet, 600 MG PO Q6-8 HOURS, TAB 06/07/14 Tamsulosin Hcl* (Flomax*) 0.4 Mg Cap.er.24h, 0.4 MG PO HS, CAP 06/07/14 Allopurinol* (Allopurinol*) 100 Mg Tablet, 100 MG PO TID 04/12/12 Aspirin Ec (Aspir 81) 81 Mg Tablet.dr, 81 MG PO DAILY 10/27/10 Allergies Allergies: Coded Allergies: No Known Allergy (Verified , 08/26/16) PMhx/Soc History of Surgery: Yes (CABG) Anesthesia Reaction: No Hx Neurological Disorder: No Hx Respiratory Disorders: No Hx Cardiac Disorders: Yes (HTN) Hx Psychiatric Problems: No Hx Miscellaneous Medical Probl: Yes (BPH) Hx Alcohol Use: No Hx Substance Use: No Hx Tobacco Use: No Smoking Status: Never smoker Physical Exam Vitals Vital Signs Date Time Temp Pulse Resp B/P Pulse Ox O2 Delivery O2 Flow Rate FiO2 03/16/17 01:06 56 16 110/56 97 Room Air 03/15/17 22:16 99.1 68 20 105/68 96 Physical Exam Const: [] Head: Atraumatic Eyes: Normal Conjunctiva ENT: Normal External Ears, Nose and Mouth. Neck: Full range of motion..~ No meningismus. Resp: Clear to auscultation bilaterally Cardio: Regular rate and rhythm, no murmurs Abd: Soft, non tender, non distended. Normal bowel sounds Skin: No petechiae or rashes Back: No midline or flank tenderness Ext: No cyanosis, or edema Neur: Awake and alert Psych: Normal Mood and Affect Result Diagram: 03/15/17222403/15/172224 Results 24 hrs Laboratory Tests Test 03/15/17 21:45 03/15/17 22:25 Lactic Acid Level 0.7mmol/L White Blood Count 3.410^3/ul Red Blood Count 1.9610^6/ul Hemoglobin 8.4g/dl Hematocrit 24.3% Mean Corpuscular Volume 124.0fl Mean Corpuscular Hemoglobin 42.9pg Mean Corpuscular Hemoglobin Concent 34.6g/dl Red Cell Distribution Width % Platelet Count 27331^3/UL Mean Platelet Volume 11.7fl Neutrophils % 53.3% Lymphocytes % 37.8% Monocytes % 7.4% Eosinophils % 1.2% Basophils % 0.3% Nucleated Red Blood Cells % 0.0/100WBC Neutrophils # 1.810^3/ul Lymphocytes # 1.310^3/ul Monocytes # 0.310^3/ul Eosinophils # 0.010^3/ul Basophils # 0.010^3/ul Nucleated Red Blood Cells # 0.010^3/ul Prothrombin Time 14.6Sec Prothrombin Time Ratio 1.1 INR International Normalized Ratio 1.12 Activated Partial Thromboplast Time 37.8Sec Sodium Level 137mmol/L Potassium Level 4.3mmol/L Chloride Level 102mmol/L Carbon Dioxide Level 25mmol/L Anion Gap 14 Blood Urea Nitrogen 21mg/dl Creatinine 1.39mg/dl Glucose Level 92mg/dl Calcium Level 9.0mg/dl Total Bilirubin 0.4mg/dl Direct Bilirubin 0.00mg/dl Indirect Bilirubin 0.4mg/dl Aspartate Amino Transf (AST/SGOT) 28IU/L Alanine Aminotransferase (ALT/SGPT) 26IU/L Alkaline Phosphatase 58IU/L Troponin I < 0.012ng/ml Total Protein 6.9g/dl Albumin 3.9g/dl Globulin 3.00g/dl Albumin/Globulin Ratio 1.30 Procedures/MDM EKG: Rate/Rhythm: [Normal Sinus Rhythm] QRS, ST, T-waves: [No changes consistent w/ acute ischemia] Impression: [No evidence of ischemia or arrhythmia] Chest X-ray 1V Interpreted by me: Soft Tissue: No acute abnormalities Bones: No acute abnormalities Mediastinum/Cardiac Silhouette/Lungs: [No acute abnormalities] Medical decision-making: This is a 66-year-old male with generalized weakness. No evidence of infection. Patient will be admitted to med surgical floor to the hospitalist. Departure Diagnosis: Primary Impression: Acute weakness Condition: Stable JESUS LOVE Mar 16, 2017 01:26
[2017-03-16 02:23] VITALS: TEMP 98.8
[2017-03-16 02:30] VITALS: BP 106/59; PULSE 68; RESP 18
[2017-03-16 02:48] VITALS: Ht 170.2 cm; Wt 66.9 kg
[2017-03-16] MEDS ORDERED: ALBUTEROL/IPRATROPIUM (NEB) 3 ML AMP HHN PRN (05:30)
[2017-03-16] MEDS ORDERED: ACETAMINOPHEN 325 MG TAB PO PRN (05:30)
[2017-03-16] MEDS ORDERED: ONDANSETRON 4 MG INJ IV PRN (05:30)
[2017-03-16] MEDS ORDERED: morphine 2 MG INJ IV PRN (05:30)
[2017-03-16] MEDS ORDERED: NACL 0.9% 3 ML SYG IV SCH (05:30)
[2017-03-16] MEDS: PANTOPRAZOLE (EC) 40 MG TAB PO SCH (06:23)
[2017-03-16 07:38] VITALS: BP 99/58; RESP 18
[2017-03-16 07:49] LABS: BASOPHILS % 0.3 % (0.0-2.0); EOSINOPHILS # 0.1 10^3/ul (0.0-0.5); EOSINOPHILS % 1.6 % (0.0-7.0); HEMATOCRIT 25.1 % (42.0-52.0); HEMOGLOBIN 8.6 g/dl (14.0-18.0); LYMPHOCYTES # 1.2 10^3/ul (0.8-2.9); LYMPHOCYTES % 36.9 % (15.0-51.0); MEAN CORPUSCULAR HGB CONC 34.3 g/dl (32.0-37.0); MEAN CORPUSCULAR VOLUME 131.4 fl (82.0-101.0); MEAN PLATELET VOLUME 11.6 fl (7.4-10.4); MONOCYTE # 0.2 10^3/ul (0.3-0.9); NEUTROPHIL # 1.7 10^3/ul (1.6-7.5); NEUTROPHILS % 54.9 % (39.0-77.0); PLATELET COUNT 571 10^3/UL (140-415); RED BLOOD COUNT 1.91 10^6/ul (4.70-6.10); RED CELL DISTRIBUTION WIDTH 12.3 % (11.5-14.5); WHITE BLOOD COUNT 3.2 10^3/ul (4.8-10.8)
[2017-03-16 08:12] LABS: IRON 64 ug/dl (35-150)
[2017-03-16 08:14] LABS: ALANINE AMINOTRANSFERASE 25 IU/L (13-69); ALBUMIN 4.1 g/dl (3.3-4.9); ALBUMIN/GLOBULIN RATIO 1.51; ALKALINE PHOSPHATASE 62 IU/L (42-121); ANION GAP 18 (8-16); ASPARTATE AMINO TRANSFERASE 15 IU/L (15-46); BILIRUBIN,INDIRECT 0.5 mg/dl (0-1.1); BILIRUBIN,TOTAL 0.5 mg/dl (0.2-1.3); BLOOD UREA NITROGEN 22 mg/dl (7-20); CALCIUM 9.1 mg/dl (8.4-10.2); CARBON DIOXIDE 26 mmol/L (21-31); CHLORIDE 102 mmol/L (97-110); CREATININE 1.33 mg/dl (0.61-1.24); GLUCOSE 71 mg/dl (70-220); PHOSPHORUS 4.7 mg/dl (2.5-4.9); POTASSIUM 5.2 mmol/L (3.5-5.1); SODIUM 141 mmol/L (135-144); TOTAL PROTEIN 6.8 g/dl (6.1-8.1)
[2017-03-16 08:22] LABS: TOTAL IRON BINDING CAPACITY 220 ug/dl (241-421)
[2017-03-16] MEDS: ALLOPURINOL 100 MG TAB PO SCH ×3 (09:23→22:20)
[2017-03-16] MEDS: DICYCLOMINE 10 MG CAP PO SCH ×4 (09:23→22:20)
[2017-03-16] MEDS: HYDROXYUREA 500 MG CAP PO SCH (09:25)
--- NOTE | 2017-03-16 09:25 | HP ---
Date/Time of Note Date/Time of Note DATE: 03/16/17 TIME: 09:10 Assessment/Plan Lines/Catheters IV Catheter Type (from [facility]): Saline Lock Assessment/Plan Assessment/Plan 1. Generalized weakness -Probably started as a result of viral illness given reported flulike symptom. This further worsened as a result of poor p.o. intake because of odynophagia. Patient is also anemic which is definitely a contributing factor as well. -Physical therapy evaluation -GI consult for odynophagia -Trial of viscous lidocaine -Dietary consult 2. Odynophagia -See #1 3. Macrocytic anemia -Check TSH, folate, vitamin B12 -We will also check ferritin and iron 4. History of MDS, on hydroxyurea -We will notify his department assistant/oncologist, Dr. Greenfield, who can also comment on anemia 5. History of CAD with CABG -Continue home medications 6. Acute kidney injury -From a prerenal etiology as a result of decreased p.o. intake -IV fluids -Nephrology consult and renal ultrasound as needed 7. History of BPH -Continue home medication HPI/ROS Admit Date/Time Admit Date/Time Mar 16, 2017 at 01:05 Hx of Present Illness This is a 66-year-old male with a history of CAD status post CABG, BPH, nephroureterolithiasis status post stent, MDS, polycythemia. Patient presented to the ER complaining of generalized weakness 1 week, odynophagia, and a decreased appetite 3 days. He said the symptoms started out as a flulike symptom with dry cough, runny nose and sneezing. He then noticed lack of energy and pain in his throat which resulted in decreased p.o. intake. He also reported mild shortness of breath. Denied chest pain, fever/chills, diarrhea, urinary symptoms. He did report nausea but no vomiting. Patient has a history of MDS and also previously history of polycythemia and has been taking hydroxyurea. When patient presented to the ER, lab shows hemoglobin of 8.4 with MCV of 124, WBC 3.4, platelets 566, creatinine 1.39. PMH/Family/Social Social History Smoking Status: Former smoker Exam/Review of Systems Vital Signs Vitals Vital Signs Date Time Temp Pulse Resp B/P Pulse Ox O2 Delivery O2 Flow Rate FiO2 03/16/17 07:38 98.7 67 18 99/58 96 03/16/17 02:30 Room Air Intake and Output 03/15/17 03/15/17 03/16/17 14:59 22:59 06:59 Intake Total 0 ml Balance 0 ml Labs Result Diagram: 03/16/1762303/16/17623 Medications Medications Current Medications Ondansetron HCl (Zofran Inj) 4 mg Q6H PRN IV NAUSEA AND/OR VOMITING; Start at 05:30 Acetaminophen (Tylenol Tab) 650 mg Q6H PRN PO PAIN LEVEL 1-3 OR FEVER; Start 03/16/17 at 05:30 Morphine Sulfate (morphine) 2 mg Q4H PRN IV SEVERE PAIN LEVEL 7-10; Start at 05:30 Allopurinol (Zyloprim) 100 mg TID PO ; Start 03/16/17 at 09:00 Dicyclomine HCl (Bentyl) 10 mg QID PO ; Start 03/16/17 at 09:00 Hydroxyurea (Hydrea) 1,500 mg DAILY PO ; Start 03/16/17 at 09:00 Tamsulosin HCl (Flomax) 0.4 mg HS PO ; Start 03/16/17 at 21:00 Pantoprazole (Protonix Tab) 40 mg DAILY@06 PO Last administered on 03/16/17t 06:23; Admin Dose 40 MG; Start 03/16/17 at 06:00 JESUS BORJA MD Mar 16, 2017 09:25
[2017-03-16] MEDS: ALBUTEROL HFA 8 GM INHALER INH SCH ×4 (09:28→22:20)
[2017-03-16 10:46] LABS: FOLATE > 20.0 ng/ml (2.8-20.0)
--- NOTE | 2017-03-16 14:22 | PN ---
Date/Time of Note Date/Time of Note DATE: 03/16/17 TIME: 14:10 Assessment/Plan VTE Prophylaxis VTE Prophylaxis Intervention: SCD's Lines/Catheters IV [facility]from [facility] Saline Lock Urinary Cath still in place: No Assessment/Plan Chief Complaint/Hosp Course S: Patient still complaining of some throat pain. Briefly seen by hematology oncology team just now. No acute events overnight. O: Vital signs - see below PE: Head: Atraumatic Eyes: Normal Conjunctiva ENT: Normal External Ears, Nose and Mouth. Neck: Full range of motion..~ No meningismus. Resp: Clear to auscultation bilaterally Cardio: Regular rate and rhythm, no murmurs Abd: Soft, non tender, non distended. Normal bowel sounds Skin: No petechiae or rashes Back: No midline or flank tenderness Ext: No cyanosis, or edema Neur: Awake and alert Psych: Normal Mood and Affect A/P: 66-year-old male past medical history of polycythemia vera, MDS, CAD with prior CABG, urethral stent, presents here for generalized weakness for the past week as well as odynophagia. 1. Generalized weakness - Possibly secondary to viral illness given reported flulike symptom, worsening a result of poor p.o. intake because of odynophagia. -Physical therapy evaluation has been performed. -Consider GI consult for odynophagia -Every 6 hours of viscous lidocaine -Speech/Dietary consult -IV fluids as well for likely dehydration component 2. Odynophagia - See #1 -per discussion with hematology oncology team, hydroxyurea could be causing mild throat pain such as stomatitis. Patient does complain of an ulcer on his inner mouth. -Again, viscous lidocaine, IV fluids. Follow-up speech therapy recommendations. 3. Macrocytic anemia -MCV is 131. Again upon discussion with hematology oncology team, this is likely secondary to combination of patient taking hydroxyurea and patient's current dehydration. - f/u TSH, folate, vitamin B12 -f/u ferritin and iron 4. History of MDS, on hydroxyurea -again, spoke with patient's sales promotion representative/ oncologist, Dr. Greenfield today. -Monitor for now, according to hematology oncology team CBC not too abnormal. -If symptoms worsen or CBC he comes more abnormal, will reconsult heme/onc team -Continue hydroxyurea and allopurinol 5. History of CAD with CABG -Continue home medications 6. Acute kidney injury - From a prerenal etiology as a result of decreased p.o. intake - continue IV fluids -Consider nephrology consult and renal ultrasound as needed 7. History of BPH -Continue home medication Problems: Exam/Review of Systems Vital Signs Vitals Vital Signs Date Time Temp Pulse Resp B/P Pulse Ox O2 Delivery O2 Flow Rate FiO2 03/16/17 08:15 Nasal Cannula 03/16/17 07:38 98.7 67 18 99/58 96 Intake and Output 03/15/17 03/15/17 03/16/17 15:00 23:00 07:00 Intake Total 0 ml Balance 0 ml Results Result Diagram: 03/16/17 0624 03/16/17 0624 Results 24 hrs Laboratory Tests Test 03/15/17 21:45 03/15/17 22:25 03/16/17 04:27 03/16/17 06:24 Lactic Acid Level 0.7 0.7 0.8 White Blood Count 3.4 L 3.2 L Red Blood Count 1.96 #L 1.91 L Hemoglobin 8.4 L 8.6 L Hematocrit 24.3 L 25.1 L Mean Corpuscular Volume 124.0 H 131.4 H Mean Corpuscular Hemoglobin 42.9 H 45.0 H Mean Corpuscular Hemoglobin Concent 34.6 34.3 Red Cell Distribution Width 12.3 Platelet Count 566 #H 571 H Mean Platelet Volume 11.7 H 11.6 H Neutrophils % 53.3 54.9 Lymphocytes % 37.8 36.9 Monocytes % 7.4 6.0 Eosinophils % 1.2 1.6 Basophils % 0.3 0.3 Nucleated Red Blood Cells % 0.0 0.0 Neutrophils # 1.8 1.7 Lymphocytes # 1.3 1.2 Monocytes # 0.3 0.2 L Eosinophils # 0.0 0.1 Basophils # 0.0 0.0 Nucleated Red Blood Cells # 0.0 0.0 Prothrombin Time 14.6 Prothrombin Time Ratio 1.1 INR International Normalized Ratio 1.12 Activated Partial Thromboplast Time 37.8 H Sodium Level 137 141 Potassium Level 4.3 5.2 H Chloride Level 102 102 Carbon Dioxide Level 25 26 Anion Gap 14 18 H Blood Urea Nitrogen 21 H 22 H Creatinine 1.39 H 1.33 H Glucose Level 92 71 Calcium Level 9.0 9.1 Total Bilirubin 0.4 0.5 Direct Bilirubin 0.00 0.00 Indirect Bilirubin 0.4 0.5 Aspartate Amino Transf (AST/SGOT) 28 15 Alanine Aminotransferase (ALT/SGPT) 26 25 Alkaline Phosphatase 58 62 Troponin I < 0.012 Total Protein 6.9 6.8 Albumin 3.9 4.1 Globulin 3.00 2.70 Albumin/Globulin Ratio 1.30 1.51 Phosphorus Level 4.7 Magnesium Level 2.0 Iron Level 64 Total Iron Binding Capacity 220 L Percent Iron Saturation 29 Ferritin 199.0 Vitamin B12 Level 404 Folate > 20.0 H Free Thyroxine Index 3.08 Thyroxine (T4) 8.8 Triiodothyronine (T3) Uptake 35.0 Medications Medications Current Medications Ondansetron HCl (Zofran Inj) 4 mg Q6H PRN IV NAUSEA AND/OR VOMITING; Start at 05:30 Acetaminophen (Tylenol Tab) 650 mg Q6H PRN PO PAIN LEVEL 1-3 OR FEVER; Start 03/16/17 at 05:30 Morphine Sulfate (morphine) 2 mg Q4H PRN IV SEVERE PAIN LEVEL 7-10; Start at 05:30 Allopurinol (Zyloprim) 100 mg TID PO Last administered on 03/16/17 09:23; Admin Dose 100 MG; Start 03/16/17 at 09:00 Dicyclomine HCl (Bentyl) 10 mg QID PO Last administered on 03/16/17 09:23; Admin Dose 10 MG; Start 03/16/17 at 09:00 Hydroxyurea (Hydrea) 1,500 mg DAILY PO Last administered on 03/16/17 09:25; Admin Dose 1,500 MG; Start 03/16/17 at 09:00 Tamsulosin HCl (Flomax) 0.4 mg HS PO ; Start 03/16/17 at 21:00 Pantoprazole (Protonix Tab) 40 mg DAILY@06 PO Last administered on 03/16/17 06:23; Admin Dose 40 MG; Start 03/16/17 at 06:00 Lidocaine 15 ml 15 ml QID PRN PO PAIN LEVEL 8-10; Start 03/16/17 at 13:00 Sodium Chloride (NS) 1,000 ml @ 125 mls/hr Q8H IV ; Start 03/16/17 at 14:30; Status OLIVER DOBSON Mar 16, 2017 14:21
[2017-03-16] MEDS: LIDOCAINE 2% VISC 15 ML CUP PO PRN (14:23)
[2017-03-16] MEDS: SOD CHLORIDE 0.9% 1,000 ML IV SCH ×2 (14:24→22:20)
[2017-03-16 15:24] LABS: CALCIUM 8.6 mg/dl (8.4-10.2); CREATININE 1.37 mg/dl (0.61-1.24); POTASSIUM 4.8 mmol/L (3.5-5.1)
[2017-03-16 16:22] VITALS: BP 112/69; RESP 18
[2017-03-16 20:00] VITALS: BP 108/58; RESP 19
[2017-03-16] MEDS: TAMSULOSIN (SR) 0.4 MG CAP PO SCH (22:20)
[2017-03-17] MEDS: ALBUTEROL HFA 8 GM INHALER INH SCH ×7 (01:21→23:58)
[2017-03-17 02:00] VITALS: BP 103/54; RESP 18
[2017-03-17 05:20] LABS: ABNORMAL IP MESSAGE 1; HEMATOCRIT 21.3 % (42.0-52.0); HEMOGLOBIN 7.3 g/dl (14.0-18.0); MEAN CORPUSCULAR HEMOGLOBIN 43.2 pg (29.0-33.0); MEAN CORPUSCULAR HGB CONC 34.3 g/dl (32.0-37.0); MEAN PLATELET VOLUME 11.2 fl (7.4-10.4); PLATELET COUNT 500 10^3/UL (140-415); POSITIVE DIFF @See below; RED BLOOD COUNT 1.69 10^6/ul (4.70-6.10); WHITE BLOOD COUNT 2.4 10^3/ul (4.8-10.8)
[2017-03-17] MEDS: PANTOPRAZOLE (EC) 40 MG TAB PO SCH (05:21)
[2017-03-17] MEDS: SOD CHLORIDE 0.9% 1,000 ML IV SCH ×3 (05:23→20:08)
[2017-03-17 05:53] LABS: CALCIUM 8.2 mg/dl (8.4-10.2); CREATININE 1.28 mg/dl (0.61-1.24); MAGNESIUM 1.9 mg/dl (1.7-2.5); PHOSPHORUS 4.6 mg/dl (2.5-4.9); POTASSIUM 4.2 mmol/L (3.5-5.1)
[2017-03-17 06:21] LABS: BASOPHILS % 0.4 % (0.0-2.0); EOSINOPHILS % 0.8 % (0.0-7.0)
[2017-03-17 08:01] VITALS: BP 111/57; RESP 18
[2017-03-17] MEDS: ALLOPURINOL 100 MG TAB PO SCH ×3 (09:34→20:09)
[2017-03-17] MEDS: DICYCLOMINE 10 MG CAP PO SCH ×4 (09:34→20:08)
[2017-03-17] MEDS: HYDROXYUREA 500 MG CAP PO SCH (09:35)
[2017-03-17 09:51] LABS: ANISOCYTOSIS 2+ (0-0); BASOPHILS % (M) 1 % (0-2); EOSINOPHILS % (M) 1 % (0-7); GIANT THROMBO% (M) 1 % (0-0); MONOCYTES % (M) 9 % (0-11); POIKILOCYTOSIS 2+ (0-0); POLYCHROMASIA 2+ (0-0)
[2017-03-17 14:00] VITALS: BP 97/50; RESP 18
--- NOTE | 2017-03-17 14:58 | PN ---
Date/Time of Note Date/Time of Note DATE: 03/17/17 TIME: 14:56 Assessment/Plan VTE Prophylaxis VTE Prophylaxis Intervention: SCD's Lines/Catheters IV C[facility]ter Type (from [facility]): Saline Lock Urinary Cath still in place: No Assessment/Plan Chief Complaint/Hosp Course S: No acute events overnight. Still on IV fluids. Seen by speech therapy team. O: Vital signs - see below PE: Head: Atraumatic Eyes: Normal Conjunctiva ENT: Normal External Ears, Nose and Mouth. Neck: Full range of motion..~ No meningismus. Resp: Clear to auscultation bilaterally Cardio: Regular rate and rhythm, no murmurs Abd: Soft, non tender, non distended. Normal bowel sounds Skin: No petechiae or rashes Back: No midline or flank tenderness Ext: No cyanosis, or edema Neur: Awake and alert Psych: Normal Mood and Affect A/P: 66-year-old male past medical history of polycythemia vera, MDS, CAD with prior CABG, urethral stent, presents here for generalized weakness for the past week as well as odynophagia. 1. Generalized weakness - Possibly secondary to viral illness given reported flulike symptom, worsening a result of poor p.o. intake because of odynophagia. -Physical therapy evaluation has been performed. -Consider GI consult for odynophagia if does not improve. -Every 6 hours of viscous lidocaine, slowly improving -Follow-up speech/Dietary consult recommendations -For now continue IV fluids as well for likely dehydration component 2. Odynophagia - See #1 -per discussion with hematology oncology team, hydroxyurea could be causing mild throat pain such as stomatitis. Patient does complain of an ulcer on his inner mouth. -Again, viscous lidocaine, IV fluids. Follow-up speech therapy recommendations. 3. Macrocytic anemia -MCV is 131. Again upon discussion with hematology oncology team, this is likely secondary to combination of patient taking hydroxyurea and patient's current dehydration. -Continue to monitor for now 4. History of MDS, on hydroxyurea -again, spoke with patient's fruit receiver/ oncologist, Dr. Greenfield yesterday. -Monitor for now, according to hematology oncology team CBC not too abnormal. -If symptoms worsen or CBC he comes more abnormal, will reconsult heme/onc team -Continue hydroxyurea and allopurinol 5. History of CAD with CABG -Continue home medications 6. Acute kidney injury - From a prerenal etiology as a result of decreased p.o. intake, slightly improved from yesterday. - continue IV fluids 7. History of BPH -Continue home medication Problems: Exam/Review of Systems Vital Signs Vitals Vital Signs Date Time Temp Pulse Resp B/P Pulse Ox O2 Delivery O2 Flow Rate FiO2 03/17/17 08:01 98.7 61 18 111/57 96 03/16/17 20:00 Nasal Cannula Intake and Output 03/16/17 03/16/17 03/17/17 14:59 22:59 06:59 Intake Total 2040 ml 1480 ml Output Total 800 ml 600 ml Balance 1240 ml 880 ml Results Result Diagram: 03/17/1744003/17/17 044 Results 24 hrs Laboratory Tests Test 03/17/17 04:41 White Blood Count 2.4 #L Red Blood Count 1.69 L Hemoglobin 7.3 L Hematocrit 21.3 L Mean Corpuscular Volume 126.0 H Mean Corpuscular Hemoglobin 43.2 H Mean Corpuscular Hemoglobin Concent 34.3 Red Cell Distribution Width Platelet Count 500 H Mean Platelet Volume 11.2 H Neutrophils % Segmented Neutrophils % (Manual) 43 Lymphocytes % Lymphocytes % (Manual) 46 Monocytes % Monocytes % (Manual) 9 Eosinophils % 0.8 Eosinophils % (Manual) 1 Basophils % 0.4 Basophils % (Manual) 1 Nucleated Red Blood Cells % 0.0 Neutrophils # Absolute Lymphocytes (Manual) 1.1 Lymphocytes # Monocytes # Absolute Monocytes (Manual) 0.2 L Eosinophils # 0.0 Basophils # 0.0 Basophils # (Manual) 0.0 Nucleated Red Blood Cells # 0.0 Giant Platelets 1 H Polychromasia 2+ Poikilocytosis 2+ Anisocytosis 2+ Macrocytosis 2+ Sodium Level 141 Potassium Level 4.2 Chloride Level 107 Carbon Dioxide Level 25 Anion Gap 13 Blood Urea Nitrogen 20 Creatinine 1.28 H Glucose Level 80 Calcium Level 8.2 L Phosphorus Level 4.6 Magnesium Level 1.9 Medications Medications Current Medications Ondansetron HCl (Zofran Inj) 4 mg Q6H PRN IV NAUSEA AND/OR VOMITING; Start at 05:30 Acetaminophen (Tylenol Tab) 650 mg Q6H PRN PO PAIN LEVEL 1-3 OR FEVER Last administered on 03/16/17t 22:21; Admin Dose 650 MG; Start 03/16/17 at 05:30 Morphine Sulfate (morphine) 2 mg Q4H PRN IV SEVERE PAIN LEVEL 7-10; Start at 05:30 Allopurinol (Zyloprim) 100 mg TID PO Last administered on 03/17/17 12:07; Admin Dose 100 MG; Start 03/16/17 at 09:00 Dicyclomine HCl (Bentyl) 10 mg QID PO Last administered on 03/17/17 12:07; Admin Dose 10 MG; Start 03/16/17 at 09:00 Hydroxyurea (Hydrea) 1,500 mg DAILY PO Last administered on 03/17/17 09:35; Admin Dose 1,500 MG; Start 03/16/17 at 09:00 Tamsulosin HCl (Flomax) 0.4 mg HS PO Last administered on 03/16/17 22:20; Admin Dose 0.4 MG; Start 03/16/17 at 21:00 Pantoprazole (Protonix Tab) 40 mg DAILY@06 PO Last administered on 03/17/17 05:21; Admin Dose 40 MG; Start 03/16/17 at 06:00 Lidocaine 15 ml 15 ml QID PRN PO PAIN LEVEL 8-10 Last administered on 14:23; Admin Dose 15 ML; Start 03/16/17 at 13:00 Sodium Chloride (NS) 1,000 ml @ 125 mls/hr Q8H IV Last administered on 14:21; Admin Dose 125 MLS/HR; Start 03/16/17 at 14:30 Metoprolol Succinate (Toprol Xl) 25 mg BID PO ; Start 03/17/17 at 15:00; Status OLIVER DOBSON Mar 17, 2017 14:58
[2017-03-17 16:19] LABS: HEMATOCRIT 20.4 % (42.0-52.0)
[2017-03-17] MEDS: METOPROLOL (XL) 25 MG TAB PO SCH ×2 (16:35→20:08)
[2017-03-17 19:27] VITALS: BP 101/53; RESP 16
[2017-03-17] MEDS: TAMSULOSIN (SR) 0.4 MG CAP PO SCH (20:08)
[2017-03-18 02:43] VITALS: BP 108/60; RESP 18
[2017-03-18] MEDS: SOD CHLORIDE 0.9% 1,000 ML IV SCH ×3 (04:26→22:30)
[2017-03-18] MEDS: ALBUTEROL HFA 8 GM INHALER INH SCH ×5 (05:00→20:38)
[2017-03-18 05:20] LABS: ABNORMAL IP MESSAGE 1; HEMATOCRIT 21.5 % (42.0-52.0); HEMOGLOBIN 7.3 g/dl (14.0-18.0); MEAN CORPUSCULAR HEMOGLOBIN 44.5 pg (29.0-33.0); MEAN CORPUSCULAR VOLUME 131.1 fl (82.0-101.0); MEAN PLATELET VOLUME 11.5 fl (7.4-10.4); POSITIVE DIFF @See below; RED BLOOD COUNT 1.64 10^6/ul (4.70-6.10); WHITE BLOOD COUNT 2.2 10^3/ul (4.8-10.8)
[2017-03-18 05:33] LABS: PLATELET COUNT 500 10^3/UL (140-415)
[2017-03-18] MEDS: PANTOPRAZOLE (EC) 40 MG TAB PO SCH (07:06)
[2017-03-18 07:55] VITALS: BP 104/57; RESP 19
[2017-03-18] MEDS: METOPROLOL (XL) 25 MG TAB PO SCH ×2 (09:00→20:39)
[2017-03-18 09:24] LABS: BASOPHILS % 0.4 % (0.0-2.0); EOSINOPHILS % 1.3 % (0.0-7.0); LYMPHOCYTES # 0.9 10^3/ul (0.8-2.9); LYMPHOCYTES % 40.9 % (15.0-51.0); MONOCYTE # 0.2 10^3/ul (0.3-0.9); MONOCYTES % 6.5 % (0.0-11.0); NEUTROPHIL # 1.2 10^3/ul (1.6-7.5); NEUTROPHILS % 50.5 % (39.0-77.0)
[2017-03-18] MEDS: HYDROXYUREA 500 MG CAP PO SCH (09:36)
[2017-03-18] MEDS: ALLOPURINOL 100 MG TAB PO SCH ×3 (09:36→20:40)
[2017-03-18] MEDS: DICYCLOMINE 10 MG CAP PO SCH ×4 (09:37→20:39)
[2017-03-18 10:03] LABS: ANISOCYTOSIS 2+ (0-0); EOSINOPHILS % (M) 1 % (0-7); GIANT THROMBO% (M) 16 % (0-0); MONOCYTES % (M) 6 % (0-11); PLATELET ESTIMATE INCREASED; POIKILOCYTOSIS 2+ (0-0); PROMYELOCYTES % (M) 1 % (0-0)
[2017-03-18] MEDS ORDERED: SOD CHLORIDE 0.9% 250 ML IV* ONE (12:31)
--- NOTE | 2017-03-18 12:34 | PDOCDIS ---
Discharge Instructions CONDITION Patient Condition: Stable HOME CARE INSTRUCTIONS: Diet Instructions: Low Fat /Cholesterol ACTIVITY: Activity Restrictions: Slowly Increase Activity FOLLOW UP/APPOINTMENTS Follow-up Plan Please take your medications as prescribed, please see your doctor including Dr. Greenfield in the clinic in the next few days. OLIVER PHAN Mar 18, 2017 12:34
--- NOTE | 2017-03-18 12:43 | DS ---
Date/Time of Note Date/Time of Note DATE: 03/18/17 TIME: 12:40 Discharge Summary Admission/Discharge Info Admit Date/Time Mar 16, 2017 at 01:05 Discharge Date/Time Discharge Diagnosis 1. Generalized weakness - Possibly secondary to viral illness given reported flulike symptom, worsening a result of poor p.o. intake because of odynophagia, with anemia as well, status post PRBC transfusion 2. Odynophagia - See #1 -per discussion with hematology oncology team, hydroxyurea could be causing mild throat pain such as stomatitis. Now improved with viscous lidocaine 3. Macrocytic anemia -MCV is 131. Again upon discussion with hematology oncology team, this is likely secondary to combination of patient taking hydroxyurea and patient's current dehydration. 4. History of MDS, on hydroxyurea and allopurinol 5. History of CAD with CABG -Continue home medications 6. Acute kidney injury -resolving now 7. History of BPH Patient Condition: Stable Hospital Course 66-year-old male with a history of CAD status post CABG, BPH, nephroureterolithiasis status post stent, MDS, polycythemia. Patient presented to the ER complaining of generalized weakness 1 week, odynophagia, and a decreased appetite 3 days. He said the symptoms started out as a flulike symptom with dry cough, runny nose and sneezing. He then noticed lack of energy and pain in his throat which resulted in decreased p.o. intake. He also reported mild shortness of breath. Denied chest pain, fever/chills, diarrhea, urinary symptoms. He did report nausea but no vomiting. Patient has a history of MDS and also previously history of polycythemia and has been taking hydroxyurea. When patient presented to the ER, lab shows hemoglobin of 8.4 with MCV of 124, WBC 3.4, platelets 566, creatinine 1.39. So he was admitted, given viscous lidocaine for what was presumed to be stomatitis secondary to the hydroxyurea he takes for his MDS. Patient's weakness symptoms improved, he was also given IV fluids for mild dehydration and renal insufficiency was also improved. He was able to Karla, tolerated p.o. diet, his hemoglobin was found to be lower on the day of discharge on 7.3, no signs of any upper or lower GI bleeding. Patient received 2 unit PRBC transfusion, and after this is completed he will be discharged home today improved condition. He will follow up with hematology oncology team in the clinic in the next 7-10 days. He has been given strict return precautions and event he develops any further weakness symptoms to go to ER, call 911, or call PMD. See below for full list of discharge medications. Home Meds Active Scripts Albuterol Sulfate* (Proair HFA*) 8.5 Gm Hfa.aer.ad, 2 PUFF INH Q4, #1 INHALER Prov:NATHALIA GALARZA MD 01/08/17 Reported Medications Dicyclomine Hcl* (Bentyl*) 10 Mg Capsule, 10 MG PO QID, CAP 01/08/17 Nitroglycerin* (Nitrostat*) 0.4 Mg Tab.subl, 0.4 MG SL Q5MIN Y for CHEST PAIN, BOTTLE 08/26/16 Omeprazole* (Omeprazole*) 20 Mg Capsule.dr, 20 MG PO DAILY, #30 CAP 08/26/16 Metoprolol Succinate* (Toprol XL*) 25 Mg Tab.sr.24h, 25 MG PO BID, #30 TAB 08/26/16 Hydroxyurea* (Hydroxyurea*) 500 Mg Capsule, 1500 MG PO DAILY, CAP 08/26/16 Tamsulosin Hcl* (Flomax*) 0.4 Mg Cap.er.24h, 0.4 MG PO HS, CAP 06/07/14 Allopurinol* (Allopurinol*) 100 Mg Tablet, 100 MG PO TID 04/12/12 Discontinued Reported Medications Insulin Glargine,Hum.rec.anlog (Basaglar Kwikpen U-100) 100 Unit/1 Ml Insuln.pen , 10 UNIT SC QHS 03/16/17 Tramadol Hcl* (Ultram*) 50 Mg Tablet, 50 MG PO Q6H Y for PAIN, TAB 01/08/17 Docusate Sodium* (Docusate Sodium*) 100 Mg Capsule, 100 MG PO TID, #60 CAP 08/26/16 Hydrocodone/Acetaminophen ([place] 10-325 Tablet) 1 Each Tablet, 1 EACH PO Q4, TAB 08/26/16 Ibuprofen* (Ibuprofen*) 600 Mg Tablet, 600 MG PO Q6-8 HOURS, TAB 06/07/14 Aspirin Ec (Aspir 81) 81 Mg Tablet.dr, 81 MG PO DAILY 10/27/10 Discontinued Scripts Dextromethorphan Hb-Promethazine Hcl* (Promethazine DM* Syrup) 473 Ml Syrup, 10 ML PO Q6 Y for COUGH, #120 ML Prov:NATHALIA GALARZA MD 01/08/17 Azithromycin* (Zithromax*) 250 Mg Tablet, 250 MG PO .ZPACK DIRECTED, #6 TAB TAKE 500 MG (2 TABS) THE FIRST DAY THEN 250 MG (1 TAB) DAYS 2-5 Prov:NATHALIA GALARZA MD 01/08/17 Diazepam* (Valium*) 5 Mg Tablet, 5 MG PO QHS Y for MUSCLE SPASMS, #7 TAB Prov:DONNA ODELL DO 08/26/16 Follow-up Plan Please take your medications as prescribed, please see your doctor including Dr. Greenfield in the clinic in the next few days. Primary Care Provider Julisa Booth Time spent on discharge: > 30 minutes Pending Labs Laboratory Tests Test 03/17/17 15:11 03/17/17 16:35 03/18/17 04:52 Hemoglobin 7.0g/dl (14.0-18.0) 7.3g/dl (14.0-18.0) Hematocrit 20.4% (42.0-52.0) 21.5% (42.0-52.0) Stool Occult Blood NEGATIVE (NEGATIVE) White Blood Count 2.210^3/ul (4.8-10.8) Red Blood Count 1.6410^6/ul (4.70-6.10) Mean Corpuscular Volume 131.1fl (82.0-101.0) Mean Corpuscular Hemoglobin 44.5pg (29.0-33.0) Mean Corpuscular Hemoglobin Concent 34.0g/dl (32.0-37.0) Red Cell Distribution Width % (11.5-14.5) Platelet Count 14422^3/UL (140-415) Mean Platelet Volume 11.5fl (7.4-10.4) Neutrophils % 50.5% (39.0-77.0) Segmented Neutrophils % (Manual) 43% (39-77) Lymphocytes % 40.9% (15.0-51.0) Lymphocytes % (Manual) 49% (15-51) Monocytes % 6.5% (0.0-11.0) Monocytes % (Manual) 6% (0-11) Eosinophils % 1.3% (0.0-7.0) Eosinophils % (Manual) 1% (0-7) Basophils % 0.4% (0.0-2.0) Promyelocytes % (Manual) 1% (0-0) Nucleated Red Blood Cells % 0.0/100WBC (0.0-0.0) Neutrophils # 1.210^3/ul (1.6-7.5) Absolute Lymphocytes (Manual) 1.010^3/ul (0.8-2.9) Lymphocytes # 0.910^3/ul (0.8-2.9) Monocytes # 0.210^3/ul (0.3-0.9) Absolute Monocytes (Manual) 0.110^3/ul (0.3-0.9) Eosinophils # 0.010^3/ul (0.0-0.5) Basophils # 0.010^3/ul (0.0-0.1) Promyelocytes # 0.010^3/ul (0-0) Nucleated Red Blood Cells # 0.010^3/ul (0.0-0.0) Platelet Estimate INCREASED Giant Platelets 16% (0-0) Poikilocytosis 2+ (0-0) Anisocytosis 2+ (0-0) Macrocytosis 2+ (0-0) OLIVER PHAN Mar 18, 2017 12:43
[2017-03-18] MEDS: LIDOCAINE 2% VISC 15 ML CUP PO PRN (14:43)
[2017-03-18 16:52] VITALS: BP 107/55; PULSE 60; RESP 18
[2017-03-18 19:20] VITALS: BP 113/67; RESP 20
[2017-03-18] MEDS: TAMSULOSIN (SR) 0.4 MG CAP PO SCH (20:40)
== END 2017-03-19 01:00 | disposition home or self-care (01) ==
LOC: E/R 22:08 → MS1 03-16 01:05
PROVIDERS: ADMIT Internal Medicine; ATTEND Internal Medicine
DX: R53.1 Weakness (principal); I25.10 Atherosclerotic heart disease of native coronary artery without angina pectoris; Z95.1 Presence of aortocoronary bypass graft; I10 Essential (primary) hypertension; N40.0 Benign prostatic hyperplasia without lower urinary tract symptoms; R13.10 Dysphagia, unspecified; D53.9 Nutritional anemia, unspecified; D46.9 Myelodysplastic syndrome, unspecified; N17.9 Acute kidney failure, unspecified; Z79.82 Long term (current) use of aspirin
CPT/HCPCS: 36415; 36430; 71010; 80048; 80053; 82270; 82607; 82728; 82746; 83540; 83605; 83735; 84100; 84436; 84479; 84484; 85014; 85018; 85025; 85610; 85730; 86850; 86900; 86901; 86920; 87040; 92610; 93005; 97162; G0378; J7030; J7040; P9016

== ENCOUNTER 2017-04-24 22:27 | Emergency (ER) | END 2017-04-25 00:04 | disposition home or self-care (01) ==

== ENCOUNTER 2017-05-17 05:33 | Inpatient (IN) | END 2017-05-18 19:43 | disposition home or self-care (01) | DRG 690 ==

== ENCOUNTER 2017-07-02 22:10 | Emergency (ER) | END 2017-07-03 04:45 | disposition home or self-care (01) ==

== ENCOUNTER 2017-07-17 14:31 | Emergency (ER) | END 2017-07-17 16:54 | disposition home or self-care (01) ==

== ENCOUNTER 2017-07-22 15:59 | Emergency (ER) | END 2017-07-22 19:40 | disposition home or self-care (01) ==

== ENCOUNTER 2017-08-01 23:40 | Emergency (ER) | END 2017-08-02 03:49 | disposition left against medical advice (07) ==

== ENCOUNTER 2017-12-22 18:48 | Inpatient (IN) | END 2017-12-26 12:30 | disposition home or self-care (01) | DRG 442 ==

== ENCOUNTER 2018-07-08 15:32 | Emergency (ER) | payer MEDICARE, OTHER ==
[~2018-07-08] VITALS: Ht 170.2 cm; Wt 68.2 kg
[~2018-07-08 15:32] MED LIST changes: -ALBU8.5H3 INH; +ANAG0.5C PO; +APIX5TAB PO; -ASPI-535 PO; -AZIT250T94 PO; -D-ME473S2 PO; -DIAZ-90 PO; +DICY10CA40 PO; -DICY10CA60 PO; -DOCU-159 PO; +HYDR-3980 PO; -HYDR-902 PO; -IBUP-1542 PO; -NITR0.4T39 SL; -OMEP20CA16 PO; +RUXO20TA PO; -TRAM-40 PO
[2018-07-08 15:44] VITALS: Ht 170.2 cm; Wt 68.2 kg
[2018-07-08] MEDS ORDERED: SOD CHLORIDE 0.9% 1,000 ML IV STA (15:50)
--- NOTE | 2018-07-08 16:20 | ERD ---
ER Documentation Chief Complaint Chief Complaint diffused abd pain x5days constiptation x2days HPI 67-year-old gentleman with multiple complaints. At triage she reported some abdominal pain but denies that to me. He states that for the last 5 days he is felt generally rundown. He states slightly decreased oral intake. He denies any fevers, chills, chest pain or shortness of breath, no headache no slurred speech. Again he denies any abdominal pain diarrhea or constipation to me. ROS All systems reviewed and are negative except as per history of present illness. Medications Home Meds Active Scripts Apixaban* (Eliquis*) 5 Mg Tablet, 5 MG PO BID, #60 TAB Prov:HAROLDO RODRIGUEZ MD 12/26/17 Hydrocodone/Acetaminophen ([place] 10-325 Tablet) 1 Each Tablet, 1 TAB PO Q6H PRN for PAIN, #7 TAB Prov:ABIMAEL KEENE MD 12/22/17 Reported Medications Ruxolitinib Phosphate (Jakafi) 20 Mg Tablet, 20 MG PO BID, TAB 12/22/17 Dicyclomine HCl (Dicyclomine HCl) 10 Mg Capsule, 10 MG PO QID, CAP 01/08/17 Metoprolol Succinate* (Toprol XL*) 25 Mg Tab.sr.24h, 25 MG PO BID, #30 TAB 08/26/16 Tamsulosin Hcl* (Flomax*) 0.4 Mg Cap.er.24h, 0.4 MG PO HS, CAP 06/07/14 Allopurinol* (Allopurinol*) 100 Mg Tablet, 100 MG PO TID 04/12/12 Discontinued Reported Medications Anagrelide Hcl* (Anagrelide Hcl*) 0.5 Mg Capsule, 0.5 MG PO BID, #120 CAP 07/17/17 Hydroxyurea* (Hydroxyurea*) 500 Mg Capsule, 1500 MG PO DAILY, CAP 08/26/16 Discontinued Scripts Apixaban* (Eliquis*) 5 Mg Tablet, 10 MG PO BID for 5 Days, TAB Prov:HAROLDO RODRIGUEZ MD 12/26/17 Allergies Allergies: Coded Allergies: No Known Allergy (Unverified , 07/08/18) PMhx/Soc History of Surgery: Yes (CABG) Anesthesia Reaction: No Hx Neurological Disorder: No Hx Respiratory Disorders: No Hx Cardiac Disorders: Yes (CAD) Hx Psychiatric Problems: No Hx Miscellaneous Medical Probl: No Hx Alcohol Use: No Hx Substance Use: No Hx Tobacco Use: No Smoking Status: Unknown if ever smoked FmHx Family History: No diabetes Physical Exam Vitals Vital Signs Date Temp Pulse Resp B/P (MAP) Pulse Ox O2 O2 Flow FiO2 Time Delivery Rate 07/08/18 98.6 62 22 109/69 98 15:44 (82) Physical Exam General: Well developed, well nourished, no acute distress Head: Normocephalic, atraumatic. Eyes: Pupils equally reactive, EOM intact ENT: Moist mucous membranes Neck: Supple, no lymphadenopathy Respiratory: Lungs clear bilaterally, no distress Cardiovascular: RRR, no murmurs, rubs, or gallops Abdominal: Soft, non-tender, non-distended, no peritoneal signs : Deferred MSK: No edema, no unilateral swelling, 5/5 strength Neurologic: Alert and oriented, moving all extremities, normal speech, no focal weakness, no cerebellar signs Skin: No rash Psych: Normal mood Result Diagram: 07/08/18 1555 07/08/18 1555 Results 24 hrs Laboratory Tests Test 07/08/18 15:55 White Blood Count 12.1 10^3/ul Red Blood Count 3.88 10^6/ul Hemoglobin 11.6 g/dl Hematocrit 37.6 % Mean Corpuscular Volume 96.9 fl Mean Corpuscular Hemoglobin 29.9 pg Mean Corpuscular Hemoglobin Concent 30.9 g/dl Red Cell Distribution Width 18.0 % Platelet Count 274 10^3/UL Mean Platelet Volume 11.5 fl Immature Granulocytes % 5.300 % Neutrophils % % Segmented Neutrophils % (Manual) 77 % Band Neutrophils % (Manual) 2 % Lymphocytes % % Lymphocytes % (Manual) 11 % Monocytes % % Monocytes % (Manual) 4 % Eosinophils % % Eosinophils % (Manual) 1 % Basophils % % Basophils % (Manual) 2 % Metamyelocytes % (manual) 3 % Nucleated Red Blood Cells % 3 % Immature Granulocytes # 0.640 10^3/ul Neutrophils # 10^3/ul Neutrophils # (Manual) 9.3 10^3/ul Band Neutrophils # 0.2 10^3/ul Lymphocytes (Manual) 1.3 10^3/ul Lymphocytes # 10^3/ul Monocytes # 10^3/ul Monocytes # (Manual) 0.4 10^3/ul Eosinophils # 10^3/ul Basophils # 10^3/ul Basophils # (Manual) 0.2 10^3/ul Metamyelocytes # 0.3 10^3/ul Nucleated Red Blood Cells # 10^3/ul Platelet Estimate NORMAL Polychromasia 3+ Poikilocytosis 3+ Anisocytosis 2+ Microcytosis 2+ Urine Color YELLOW Urine Clarity CLEAR Urine pH 6.0 Urine Specific [place] 1.008 Urine Ketones NEGATIVE mg/dL Urine Nitrite NEGATIVE mg/dL Urine Bilirubin NEGATIVE mg/dL Urine Urobilinogen 1+ mg/dL Urine Leukocyte Esterase NEGATIVE Clement/ul Urine Microscopic RBC 2 /HPF Urine Microscopic WBC 2 /HPF Urine Hemoglobin 1+ mg/dL Urine Glucose NEGATIVE mg/dL Urine Total Protein NEGATIVE mg/dl Sodium Level 135 mmol/L Potassium Level 4.6 mmol/L Chloride Level 100 mmol/L Carbon Dioxide Level 26 mmol/L Anion Gap 9 Blood Urea Nitrogen 13 mg/dl Creatinine 1.07 mg/dl Est Glomerular Filtrat Rate mL/min > 60 mL/min Glucose Level 87 mg/dl Calcium Level 9.0 mg/dl Total Bilirubin 0.6 mg/dl Direct Bilirubin 0.00 mg/dl Indirect Bilirubin 0.6 mg/dl Aspartate Amino Transf (AST/SGOT) 25 IU/L Alanine Aminotransferase (ALT/SGPT) 18 IU/L Alkaline Phosphatase 81 IU/L Troponin I < 0.012 ng/ml Total Protein 7.1 g/dl Albumin 4.4 g/dl Globulin 2.70 g/dl Albumin/Globulin Ratio 1.62 Lipase 22 U/L Current Medications Medications Dose Sig/Tamiko Start Time Status Last (Trade) Ordered Route PRN Stop Time Admin Dose Reason Admin Sodium 1,000 ml @ Q1H STAT 07/08/18 DC 07/08/18 Chloride 1,000 mls/hr IV 15:50 16:35 07/08/18 16:49 Procedures/MDM EKG, MONITORS, & DIAGNOSTIC IMAGING: EKG: I reviewed and interpreted a 12-lead EKG. Rhythm: Normal sinus rhythm ST Changes: No contiguous ST segment elevations T waves: No contiguous T wave inversions Impression: No evidence of acute cardiac ischemia LAB INTERPRETATION: I reviewed the laboratory testing and it shows no evidence of acute process MEDICAL DECISION MAKING: The patient has very nonspecific presentation including just generalized weakness. He has a nonfocal exam, nonfocal complaints. It is unclear why he reported abdominal pain in triage because I asked him multiple times and he denies any abdominal pain to me. At this point I do not feel CT imaging of the abdomen and pelvis are necessary. The patient will benefit from screening for infection or infarction. Low concern for either of these processes. The patient was given reassurance and IV fluids. ER COURSE: * Laboratory testing does not show any acute process. Patient continues to be well-appearing in the emergency room setting. No clear etiology for the patient's generalized weakness. Given the subacute nature I believe out patient therapy and treatment will be most appropriate. Patient has no evidence of serious etiology such as cardiac or acute intra-abdominal process. 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 CONSULTATION: None DISPOSITION PLAN: The patient does not have an identifiable emergent medical condition that warrants inpatient hospitalization at this time. The patient is deemed safe for discharge with outpatient follow-up. We discussed follow up with the patient's primary care doctor within 24 to 48 hours as needed. We also discussed return to the emergency room for worsening symptoms or worsening condition. Outpatient referral: None required Departure Diagnosis: Primary Impression: Generalized weakness Condition: Stable ALONDRA RIVERA MD Jul 08, 2018 16:20
[2018-07-08 19:00] VITALS: BP 114/72; PULSE 67; RESP 16
== END 2018-07-08 19:45 | disposition home or self-care (01) ==
LOC: E/R 15:32
DX: R53.1 Weakness (principal); I25.10 Atherosclerotic heart disease of native coronary artery without angina pectoris; Z79.01 Long term (current) use of anticoagulants; Z95.1 Presence of aortocoronary bypass graft
CPT/HCPCS: 80053; 81001; 83690; 84484; 85025; 93005; J7030; 36415

== ENCOUNTER 2018-07-28 21:49 | Emergency (ER) | payer MEDICARE, OTHER ==
[~2018-07-28] VITALS: Ht 182.9 cm; Wt 66.3 kg
[~2018-07-28 21:49] MED LIST changes: -ANAG0.5C PO; -HYDR500C3 PO
[2018-07-28 21:57] VITALS: Ht 182.9 cm; Wt 66.3 kg
[2018-07-28 23:21] VITALS: BP 99/67; PULSE 81; RESP 20
--- NOTE | 2018-07-28 23:28 | ERD ---
ER Documentation Chief Complaint Chief Complaint BIB [id number] for lower AP x3 days w/ diarrhea yesterday HPI This is a 68-year-old man with a long history of chronic recurrent abdominal pain, over 15 CT scans of the abdomen and pelvis just from this hospital. States the pain is similar to multiple previous episodes, in the lower abdomen, nonexertional nonradiating. He has had no hematuria or dysuria, no fevers or chills, no vomiting or diarrhea, no chest pain or shortness of breath. CT scans have all been unremarkable. ROS All systems reviewed and are negative except as per history of present illness. Medications Home Meds Active Scripts Ibuprofen* (Motrin*) 600 Mg Tab, 600 MG PO Q8 PRN for PAIN AND/OR INFLAMMATION, #30 TAB Prov:THAD EPSTEIN MD 07/29/18 Dicyclomine HCl (Dicyclomine HCl) 10 Mg Capsule, 10 MG PO TID PRN for ABDOMINAL CRAMPING, #20 CAP Prov:THAD EPSTEIN MD 07/29/18 Apixaban* (Eliquis*) 5 Mg Tablet, 5 MG PO BID, #60 TAB Prov:HAROLDO RODRIGUEZ MD 12/26/17 Hydrocodone/Acetaminophen ([place] 10-325 Tablet) 1 Each Tablet, 1 TAB PO Q6H PRN for PAIN, #7 TAB Prov:ABIMAEL KEENE MD 12/22/17 Reported Medications Ruxolitinib Phosphate (Jakafi) 20 Mg Tablet, 20 MG PO BID, TAB 12/22/17 Dicyclomine HCl (Dicyclomine HCl) 10 Mg Capsule, 10 MG PO QID, CAP 01/08/17 Metoprolol Succinate* (Toprol XL*) 25 Mg Tab.sr.24h, 25 MG PO BID, #30 TAB 08/26/16 Tamsulosin Hcl* (Flomax*) 0.4 Mg Cap.er.24h, 0.4 MG PO HS, CAP 06/07/14 Allopurinol* (Allopurinol*) 100 Mg Tablet, 100 MG PO TID 04/12/12 Allergies Allergies: Coded Allergies: No Known Allergy (Unverified , 07/08/18) PMhx/Soc coronary artery disease with coronary artery bypass graft in the past, myelodysplastic syndrome, kidney stones, hypertension, chronic recurrent abdomi nal pain, BPH, portal vein thrombosis History of Surgery: Yes (CABG) Anesthesia Reaction: No Hx Neurological Disorder: No Hx Respiratory Disorders: No Hx Cardiac Disorders: Yes (CAD) Hx Psychiatric Problems: No Hx Miscellaneous Medical Probl: No Hx Alcohol Use: No Hx Substance Use: No Hx Tobacco Use: No Smoking Status: Never smoker FmHx Family History: No diabetes Physical Exam Vitals Vital Signs Date Temp Pulse Resp B/P (MAP) Pulse Ox O2 O2 Flow FiO2 Time Delivery Rate 07/28/18 99.9 81 20 99/67 (78) 98 Room Air 23:21 07/28/18 99.9 117 20 109/70 95 21:57 (83) Physical Exam Const: No acute distress, afebrile Resp: Clear to auscultation bilaterally Cardio: Regular rate and rhythm, no murmurs Abd: Soft, non tender, non distended. No guarding or masses palpated, no rigidity Skin: No petechiae or rashes Back: No midline or flank tenderness Ext: No cyanosis, or edema Neur: Awake and alert x3, no focal deficits or facial asymmetry Psych: Normal Mood and Affect Result Diagram: 07/28/180 07/28/180 Results 24 hrs Laboratory Tests Test 07/28/18 23:50 White Blood Count 11.3 10^3/ul Red Blood Count 3.83 10^6/ul Hemoglobin 11.3 g/dl Hematocrit 36.1 % Mean Corpuscular Volume 94.3 fl Mean Corpuscular Hemoglobin 29.5 pg Mean Corpuscular Hemoglobin Concent 31.3 g/dl Red Cell Distribution Width 16.7 % Platelet Count 266 10^3/UL Mean Platelet Volume 9.8 fl Immature Granulocytes % 4.600 % Neutrophils % 71.5 % Lymphocytes % 13.7 % Monocytes % 6.2 % Eosinophils % 1.9 % Basophils % 2.1 % Nucleated Red Blood Cells % 0.3 /100WBC Immature Granulocytes # 0.520 10^3/ul Neutrophils # 8.1 10^3/ul Lymphocytes # 1.6 10^3/ul Monocytes # 0.7 10^3/ul Eosinophils # 0.2 10^3/ul Basophils # 0.2 10^3/ul Nucleated Red Blood Cells # 0.0 10^3/ul Sodium Level 136 mmol/L Potassium Level 4.6 mmol/L Chloride Level 101 mmol/L Carbon Dioxide Level 25 mmol/L Anion Gap 10 Blood Urea Nitrogen 14 mg/dl Creatinine 1.06 mg/dl Est Glomerular Filtrat Rate mL/min > 60 mL/min Glucose Level 97 mg/dl Calcium Level 8.9 mg/dl Total Bilirubin 0.4 mg/dl Direct Bilirubin 0.00 mg/dl Indirect Bilirubin 0.4 mg/dl Aspartate Amino Transf (AST/SGOT) 24 IU/L Alanine Aminotransferase (ALT/SGPT) 23 IU/L Alkaline Phosphatase 68 IU/L Total Protein 6.7 g/dl Albumin 4.3 g/dl Globulin 2.40 g/dl Albumin/Globulin Ratio 1.79 Lipase 33 U/L Current Medications Medications Dose Sig/Tamiko Start Time Status Last (Trade) Ordered Route PRN Stop Time Admin Dose Reason Admin Sodium 1,000 ml @ Q1H STAT 07/28/18 DC 07/28/18 Chloride 1,000 mls/hr IV 23:31 07/29/18 23:56 00:30 40 ml ONCE STAT 07/28/18 DC 07/28/18 Miscellaneous PO 23:31 07/28/18 23:57 Medication 23:32 (Gi Cocktail (2)) [place]/ 2 tab ONCE STAT 07/28/18 DC 07/28/18 Phenobarbital PO 23:31 07/28/18 23:57 () 23:32 Ketorolac 15 mg ONCE STAT 07/28/18 DC 07/28/18 Tromethamine IV 23:31 07/28/18 23:56 (Toradol) 23:32 Procedures/MDM IV line was established patient was placed on automation qa tester rhythm strip revealed a sinus rhythm at about 70 bpm with upright P and T waves. Patient was afebrile EKG performed, read by me revealed a normal sinus rhythm 74 bpm, normal axis, narrow QRS complex, no concerning ST elevations or depressions noted, LVH precordial leads I administered 1 L normal saline IV, GI cocktail p.o., Toradol 15 mg IV CBC and electrolytes were normal, liver function tests were normal Differential diagnoses considered, included but not limited to acute coronary syndrome, pulmonary embolism, aortic dissection, abdominal aortic aneurysm, sepsis, stroke, meningitis, encephalitis, pneumonia, appendicitis, cholecystitis, bowel obstruction, pyelonephritis, nephrolithiasis, cystitis, as well as metabolic, hematologic, and electrolyte abnormalities. As well as abscess, cellulitis, fractures, and dislocations. Patient feels much better at this time, and vital signs are normal, symptoms have improved. I did give strict instructions to return to the ED if symptoms continue or worsen, patient will otherwise follow-up with primary care physician. Patient understood instructions and agreed to plan. Disclaimer: Inadvertent spelling and grammatical errors are likely due to EHR/dictation software use and do not reflect on the overall quality of patient care. Also, please note that the electronic time recorded on this note does not necessarily reflect the actual time of the patient encounter. Departure Diagnosis: Primary Impression: Abdominal pain Abdominal location: lower abdomen, unspecified Qualified Codes: R10.30 - Lower abdominal pain, unspecified Additional Impression: Chronic pain syndrome Condition: THAD Lundberg MD July 28, 2018 23:28
[2018-07-28] MEDS ORDERED: SOD CHLORIDE 0.9% 1,000 ML IV STA (23:31)
[2018-07-28] MEDS ORDERED: KETOROLAC 15 MG INJ IV STA (23:31)
[2018-07-28] MEDS ORDERED: BELLADONNA/PHENOBARBITAL TAB PO STA (23:31)
[2018-07-28] MEDS ORDERED: LIDOCAINE/MYLANTA 40 ML BTL PO STA (23:31)
[2018-07-29] MEDS ORDERED: DICY10CA40 PO (00:35)
[2018-07-29] MEDS ORDERED: IBUP-1542 PO (00:35)
== END 2018-07-29 01:58 | disposition home or self-care (01) ==
LOC: E/R 21:49
DX: R10.30 Lower abdominal pain, unspecified (principal); I10 Essential (primary) hypertension; I25.10 Atherosclerotic heart disease of native coronary artery without angina pectoris; G89.4 Chronic pain syndrome; Z95.1 Presence of aortocoronary bypass graft
CPT/HCPCS: 36415; 80053; 83690; 85025; 96374; 99284; J1885; J7030; 93005

== ENCOUNTER 2018-08-06 11:59 | Inpatient (IN) | payer MEDICARE, OTHER ==
[~2018-08-06] VITALS: Ht 170.2 cm; Wt 67.0 kg
[~2018-08-06 11:59] MED LIST changes: +IBUP-1542 PO
[2018-08-06] MEDS ORDERED: SOD CHLORIDE 0.9% 500 ML IV STA (13:07)
[2018-08-06] MEDS ORDERED: ALLO100T PO (14:16)
[2018-08-06] MEDS ORDERED: METO-429 PO (14:17)
[2018-08-06] MEDS ORDERED: DICY10CA40 PO (14:17)
[2018-08-06] MEDS ORDERED: TAMS-14 PO (14:18)
[2018-08-06] MEDS ORDERED: NITR0.4T39 SL (14:18)
[2018-08-06] MEDS ORDERED: RUXO20TA PO (14:18)
[2018-08-06] MEDS ORDERED: OMEP20CA16 PO (14:19)
[2018-08-06] MEDS ORDERED: APIX5TAB PO (14:19)
[2018-08-06 15:00] VITALS: BP 109/59; PULSE 65; RESP 18
[2018-08-06] MEDS ORDERED: DOCUSATE SODIUM 100 MG CAP PO PRN (16:00)
[2018-08-06] MEDS ORDERED: ACETAMINOPHEN 325 MG TAB PO PRN (16:00)
[2018-08-06] MEDS ORDERED: ALBUTEROL/IPRATROPIUM (NEB) 3 ML AMP HHN PRN (16:00)
[2018-08-06] MEDS ORDERED: NITROGLYCERIN (SL) 0.4 MG TAB SL PRN (16:00)
[2018-08-06] MEDS ORDERED: NACL 0.9% 3 ML SYG IV SCH (16:00)
[2018-08-06] MEDS ORDERED: hydrALAzine 20 MG INJ IV PRN (16:00)
[2018-08-06] MEDS ORDERED: ONDANSETRON 4 MG INJ IV PRN (16:00)
[2018-08-06] MEDS ORDERED: MAGNESIUM HYDROXIDE 30ML CUP PO PRN (16:00)
[2018-08-06] MEDS ORDERED: LORAZEPAM 2 MG INJ IV PRN (16:00)
[2018-08-06] MEDS ORDERED: morphine 2 MG INJ IV PRN (16:00)
--- NOTE | 2018-08-06 16:06 | ERD ---
ER Documentation Chief Complaint Chief Complaint weak x3 days, flank pain radiating to left pelvic HPI This is a 68-year-old male complains of weakness for 3 days. With flank pain rating to his left pelvic region. Patient denies any fevers chills nausea vomiting. He says he feels overall weak. Denies any focal neurological comp laints. Denies any other current issues. ROS All systems reviewed and are negative except as per history of present illness. Medications Home Meds Reported Medications Omeprazole* (Omeprazole*) 20 Mg Capsule.dr, 20 MG PO DAILY, #30 CAP 08/06/18 Apixaban* (Eliquis*) 5 Mg Tablet, 5 MG PO BID, TAB 08/06/18 Nitroglycerin* (Nitrostat*) 0.4 Mg Tab.subl, 0.4 MG SL Q5MIN PRN for CHEST PAIN, BOTTLE 08/06/18 Tamsulosin Hcl* (Flomax*) 0.4 Mg Cap.er.24h, 0.4 MG PO HS, CAP 08/06/18 Ruxolitinib Phosphate (Jakafi) 20 Mg Tablet, 20 MG PO BID, TAB 08/06/18 Metoprolol Tartrate* (Lopressor*) 50 Mg Tab, 50 MG PO BID, #60 TAB 08/06/18 Dicyclomine HCl (Dicyclomine HCl) 10 Mg Capsule, 10 MG PO TID PRN for DIARRHEA 08/06/18 Allopurinol* (Allopurinol*) 100 Mg Tablet, 100 MG PO TID, TAB 08/06/18 Discontinued Reported Medications Ruxolitinib Phosphate (Jakafi) 20 Mg Tablet, 20 MG PO BID, TAB 12/22/17 Dicyclomine HCl (Dicyclomine HCl) 10 Mg Capsule, 10 MG PO QID, CAP 01/08/17 Metoprolol Succinate* (Toprol XL*) 25 Mg Tab.sr.24h, 25 MG PO BID, #30 TAB 08/26/16 Tamsulosin Hcl* (Flomax*) 0.4 Mg Cap.er.24h, 0.4 MG PO HS, CAP 06/07/14 Allopurinol* (Allopurinol*) 100 Mg Tablet, 100 MG PO TID 04/12/12 Discontinued Scripts Ibuprofen* (Motrin*) 600 Mg Tab, 600 MG PO Q8 PRN for PAIN AND/OR INFLAMMATION, #30 TAB Prov:THAD EPSTEIN MD 07/29/18 Dicyclomine HCl (Dicyclomine HCl) 10 Mg Capsule, 10 MG PO TID PRN for ABDOMINAL CRAMPING, #20 CAP Prov:THAD EPSTEIN MD 07/29/18 Apixaban* (Eliquis*) 5 Mg Tablet, 5 MG PO BID, #60 TAB Prov:HAROLDO RODRIGUEZ MD 12/26/17 Hydrocodone/Acetaminophen ([place] 10-325 Tablet) 1 Each Tablet, 1 TAB PO Q6H PRN for PAIN, #7 TAB Prov:ABIMAEL KEENE MD 12/22/17 Allergies Allergies: Coded Allergies: No Known Allergy (Unverified , 08/06/18) PMhx/Soc History of Surgery: Yes (CABG) Anesthesia Reaction: No Hx Neurological Disorder: No Hx Respiratory Disorders: No Hx Cardiac Disorders: Yes (CAD) Hx Psychiatric Problems: No Hx Miscellaneous Medical Probl: No Hx Alcohol Use: No Hx Substance Use: No Hx Tobacco Use: No Smoking Status: Never smoker Physical Exam Vitals Vital Signs Date Temp Pulse Resp B/P (MAP) Pulse Ox O2 O2 Flow FiO2 Time Delivery Rate 08/06/18 98.1 65 19 102/59 100 Room Air 15:47 (73) 08/06/18 68 17 102/78 100 Room Air 14:07 (86) 08/06/18 98.3 72 18 114/78 99 12:06 (90) Physical Exam Const: No acute distress Head: Atraumatic Eyes: Normal Conjunctiva ENT: Normal External Ears, Nose and Mouth. Neck: Full range of motion. No meningismus. Resp: Clear to auscultation bilaterally Cardio: Regular rate and rhythm, no murmurs Abd: Soft, non tender, non distended. Normal bowel sounds Skin: No petechiae or rashes Back: No midline or flank tenderness Ext: No cyanosis, or edema Neur: Awake and alert Psych: Normal Mood and Affect Result Diagram: 08/06/18 1352 08/06/18 1352 Results 24 hrs Laboratory Tests Test 08/06/18 13:52 White Blood Count 9.2 10^3/ul Red Blood Count 2.29 10^6/ul Hemoglobin 6.9 g/dl Hematocrit 22.2 % Mean Corpuscular Volume 96.9 fl Mean Corpuscular Hemoglobin 30.1 pg Mean Corpuscular Hemoglobin Concent 31.1 g/dl Red Cell Distribution Width 16.8 % Platelet Count 174 10^3/UL Mean Platelet Volume 12.6 fl Immature Granulocytes % 2.500 % Neutrophils % 81.8 % Lymphocytes % 8.0 % Monocytes % 5.4 % Eosinophils % 1.1 % Basophils % 1.2 % Nucleated Red Blood Cells % 1.0 /100WBC Immature Granulocytes # 0.230 10^3/ul Neutrophils # 7.5 10^3/ul Lymphocytes # 0.7 10^3/ul Monocytes # 0.5 10^3/ul Eosinophils # 0.1 10^3/ul Basophils # 0.1 10^3/ul Nucleated Red Blood Cells # 0.1 10^3/ul Pathologist Review (Hematology) YES Prothrombin Time 19.5 Sec Prothrombin Time Ratio 1.5 INR International Normalized Ratio 1.64 Activated Partial Thromboplast Time 50.5 Sec Sodium Level 136 mmol/L Potassium Level 3.8 mmol/L Chloride Level 111 mmol/L Carbon Dioxide Level 18 mmol/L Anion Gap 7 Blood Urea Nitrogen 8 mg/dl Creatinine 0.74 mg/dl Est Glomerular Filtrat Rate mL/min > 60 mL/min Glucose Level 77 mg/dl Calcium Level 6.6 mg/dl Total Bilirubin 0.5 mg/dl Direct Bilirubin 0.00 mg/dl Indirect Bilirubin 0.5 mg/dl Aspartate Amino Transf (AST/SGOT) 18 IU/L Alanine Aminotransferase (ALT/SGPT) 20 IU/L Alkaline Phosphatase 46 IU/L Troponin I < 0.012 ng/ml Total Protein 5.4 g/dl Albumin 2.9 g/dl Globulin 2.50 g/dl Albumin/Globulin Ratio 1.16 Lipase < 10 U/L Current Medications Medications Dose Sig/Tamiko Start Time Status Last (Trade) Ordered Route PRN Stop Time Admin Dose Reason Admin Sodium 500 ml @ Q1H STAT 08/06/18 DC 08/06/18 Chloride 500 mls/hr IV 13:07 13:07 08/06/18 14:06 IV Flush 3 ml PER 08/06/18 (NS 3 ml) PROTOCOL IV 16:00 Ondansetron 4 mg Q6H PRN 08/06/18 HCl (Zofran IV 16:00 Inj) NAUSEA/VOMITI NG 650 mg Q6H PRN 08/06/18 Acetaminophen PO .PAIN 1-3 16:00 (Tylenol OR TEMP Tab) 1 tab Q6H PRN 08/06/18 Acetaminophen PO .MOD PAIN 16:00 / 4-6 Hydrocodone Bitart ([place] (5/325)) Morphine 2 mg Q4H PRN 08/06/18 Sulfate IV .SEVERE 16:00 (morphine) PAIN 7-10 Docusate 100 mg Q12H PRN 08/06/18 Sodium PO 16:00 (Colace) .CONSTIPATION Magnesium 30 ml DAILY PRN 08/06/18 Hydroxide PO 16:00 (Milk Of Mag) .CONSTIPATION Sodium 1,000 ml @ [id number] IV 08/06/18 Chloride 75 mls/hr 15:45 Lorazepam 0.5 mg Q6H PRN 08/06/18 (Ativan) IV ANXIETY 16:00 Albuterol/ 3 ml Q4H RESP 08/06/18 Ipratropium THERAPY PRN 16:00 (Duoneb) HHN SHORTNESS OF BREATH Hydralazine 10 mg Q6H PRN 08/06/18 HCl IV ELEVATED 16:00 (Apresoline) BLOOD PRESSURE 1 tab Q5M PRN 08/06/18 Nitroglycerin SL ANGINA 16:00 (Nitroglyceri n (Sl Tab) 0.4 Mg) Metoprolol 50 mg BID PO 08/06/18 Tartrate 21:00 (Lopressor) Tamsulosin 0.4 mg HS PO 08/06/18 HCl 21:00 (Flomax) 20 mg DAILY PO 08/07/18 Pantoprazole 09:00 (Protonix Tab) Procedures/MDM Patient refused EKG and chest x-ray. Medical decision make: Patient as well as with severe symptomatic anemia with. Patient will be admitted and crossed for 2 units. Hospitalist made aware. Departure Diagnosis: Primary Impression: Acute weakness Condition: Serious JESUS LOVE August 06, 2018 16:06
[2018-08-06 16:47] VITALS: Ht 170.2 cm; Wt 67.0 kg
[2018-08-06 16:51] VITALS: PULSE 67
[2018-08-06] MEDS: SOD CHLORIDE 0.45% 1,000 ML IV SCH (17:16)
--- NOTE | 2018-08-06 17:52 | HP ---
Date/Time of Note Date/Time of Note DATE: 08/06/18 TIME: 17:52 Assessment/Plan VTE Prophylaxis SCD applied (from Nsg): Yes Pharmacological prophylaxis: other Lines/Catheters IV Catheter Type (from Nrsg): Saline Lock Urinary Cath still in place: No Assessment/Plan Hospital Course A/P: 68-year-old male past medical history of portal vein thrombosis, kidney stones, coronary artery disease with bypass surgery in the past, myelodysplastic syndrome, low back pain, hypertension complains of weakness for 3 days with hemoglobin 6.9. #Weakness/anemia: Unclear source, although patient does have a history of mye lodysplastic syndrome. Last CBC checked 9 days ago on July 28, 2018 showed hemoglobin in the 11 range at that time. Patient denies any upper or lower GI bleeding. -Follow-up occult blood test, order for PRBC transfusion. -We will also recheck H/H to make sure there is no lab error -Since patient follows up fairly constantly with hematology oncology doctor we will go ahead and consult them as well for further investigation -Follow-up TSH, A1c, lipid panel, consider low-dose IV fluids #CAD/CABG: No present issues continue monitor for now #History of mild/general: Again patient follows up weekly with hematology oncology DrGodfrey -Monitor, we will consult hematology oncology team as well #Low back pain: Consider PT consult, continue current p.o. pain medications #HTN: No present issues -Monitor, continue current medications Result Diagram: 08/06/18 1352 08/06/18 1352 Results 24hrs Laboratory Tests Test 08/06/18 13:52 08/06/18 15:39 08/06/18 15:45 White Blood Count 9.2 Red Blood Count 2.29 #L Hemoglobin 6.9 #*L Hematocrit 22.2 #L Mean Corpuscular Volume 96.9 Mean Corpuscular Hemoglobin 30.1 Mean Corpuscular Hemoglobin Concent 31.1 L Red Cell Distribution Width 16.8 H Platelet Count 174 # Mean Platelet Volume 12.6 #H Immature Granulocytes % 2.500 H Neutrophils % 81.8 H Lymphocytes % 8.0 L Monocytes % 5.4 Eosinophils % 1.1 Basophils % 1.2 Nucleated Red Blood Cells % 1.0 H Immature Granulocytes # 0.230 H Neutrophils # 7.5 Lymphocytes # 0.7 L Monocytes # 0.5 Eosinophils # 0.1 Basophils # 0.1 Nucleated Red Blood Cells # 0.1 H Pathologist Review (Hematology) YES Prothrombin Time 19.5 #H Prothrombin Time Ratio 1.5 INR International Normalized Ratio 1.64 Activated Partial Thromboplast Time 50.5 H Sodium Level 136 Potassium Level 3.8 Chloride Level 111 H Carbon Dioxide Level 18 L Anion Gap 7 Blood Urea Nitrogen 8 Creatinine 0.74 Est Glomerular Filtrat Rate mL/min > 60 Glucose Level 77 Calcium Level 6.6 L Total Bilirubin 0.5 Direct Bilirubin 0.00 Indirect Bilirubin 0.5 Aspartate Amino Transf (AST/SGOT) 18 Alanine Aminotransferase (ALT/SGPT) 20 Alkaline Phosphatase 46 Troponin I < 0.012 Total Protein 5.4 L Albumin 2.9 L Globulin 2.50 Albumin/Globulin Ratio 1.16 Lipase < 10 L Urine Color STRAW Urine Clarity CLEAR Urine pH 6.0 Urine Specific [place] 1.002 L Urine Ketones NEGATIVE Urine Nitrite NEGATIVE Urine Bilirubin NEGATIVE Urine Urobilinogen NEGATIVE Urine Leukocyte Esterase NEGATIVE Urine Microscopic RBC 0 Urine Microscopic WBC 0 Urine Hemoglobin 1+ H Urine Glucose NEGATIVE Urine Total Protein NEGATIVE Free Thyroxine 0.99 HPI/ROS Admit Date/Time Admit Date/Time August 06, 2018 at 15:15 Hx of Present Illness 68-year-old male past medical history of portal vein thrombosis, kidney stones, coronary artery disease with bypass surgery in the past, myelodysplastic syndrome, low back pain, hypertension complains of weakness for 3 days. Patient also complaining of some mild flank pain rating to his left pelvic region. Also complaining of some constipation nausea, but no vomiting, no signs of any upper or lower GI bleeding, no hematuria. Patient denies any fevers chills. However he says he feels overall weak. Denies any focal neurological complaints. Denies any other current issues. When the patient came in today he was found with hemoglobin of 6.9. PRBC transfusion has been ordered as well today which is pending. Patient states he has been following up with his hematology oncology DrGodfrey weekly including his last visit a few days ago. PMH/Family/Social Past Medical History Medications Current Medications IV Flush (NS 3 ml) 3 ml PER PROTOCOL IV ; Start 08/06/18 at 16:00 Ondansetron HCl (Zofran Inj) 4 mg Q6H PRN IV NAUSEA/VOMITING; Start 08/06/18 at 16:00 Acetaminophen (Tylenol Tab) 650 mg Q6H PRN PO .PAIN 1-3 OR TEMP; Start 08/06/18 at 16:00 Acetaminophen/ Hydrocodone Bitart ([place] (5/325)) 1 tab Q6H PRN PO .MOD PAIN 4- 6; Start 08/06/18 at 16:00 Morphine Sulfate (morphine) 2 mg Q4H PRN IV .SEVERE PAIN 7-10; Start 08/06/18 at 16:00 Docusate Sodium (Colace) 100 mg Q12H PRN PO .CONSTIPATION; Start 08/06/18 at 16:00 Magnesium Hydroxide (Milk Of Mag) 30 ml DAILY PRN PO .CONSTIPATION; Start 08/06/18 at 16:00 Sodium Chloride 1,000 ml @ 75 mls/hr [id number] IV Last administered on 08/06/18at 17:16; Admin Dose 75 MLS/HR; Start 08/06/18 at 15:45 Lorazepam (Ativan) 0.5 mg Q6H PRN IV ANXIETY; Start 08/06/18 at 16:00 Albuterol/ Ipratropium (Duoneb) 3 ml Q4H RESP THERAPY PRN HHN SHORTNESS OF BREATH; Start 08/06/18 at 16:00 Hydralazine HCl (Apresoline) 10 mg Q6H PRN IV ELEVATED BLOOD PRESSURE; Start 08/06/18 at 16:00 Nitroglycerin (Nitroglycerin (Sl Tab) 0.4 Mg) 1 tab Q5M PRN SL ANGINA; Start 08/06/18 at 16:00 Metoprolol Tartrate (Lopressor) 50 mg BID PO ; Start 08/06/18 at 21:00 Tamsulosin HCl (Flomax) 0.4 mg HS PO ; Start 08/06/18 at 21:00 Pantoprazole (Protonix Tab) 20 mg DAILY PO ; Start 08/07/18 at 09:00 Coded Allergies: No Known Allergy (Unverified , 08/06/18) Past Surgical History Past Surgical Hx: coronary bypass surgery Family History Significant Family History: no pertinent family hx Social History Alcohol Use: none Smoking Status: Never smoker Drug Use: none Exam/Review of Systems Vital Signs Vitals Vital Signs Date Temp Pulse Resp B/P (MAP) Pulse Ox O2 O2 Flow FiO2 Time Delivery Rate 08/06/18 67 16:51 08/06/18 98.1 19 102/59 100 Room Air 15:47 (73) Exam Exam Gen: No acute distress Head: Atraumatic Eyes: Normal Conjunctiva ENT: Normal External Ears, Nose and Mouth. Neck: Full range of motion. No meningismus. Resp: Clear to auscultation bilaterally Cardio: Regular rate and rhythm, no murmurs Abd: Soft, non tender, non distended. Normal bowel sounds Ext: No lower extremity edema bilaterally Neuro: No focal deficits OLIVER PHAN August 06, 2018 17:52
[2018-08-06 18:50] VITALS: PULSE 150
[2018-08-06 20:00] VITALS: BP 114/63; PULSE 70; RESP 18
[2018-08-06] MEDS: METOPROLOL 50 MG TAB PO SCH (20:23)
[2018-08-06 20:45] VITALS: PULSE 78
[2018-08-06] MEDS ORDERED: TAMSULOSIN (SR) 0.4 MG CAP PO SCH (21:00)
[2018-08-06] MEDS: HYDROCODONE/APAP (5/325) TAB PO PRN (23:34)
[2018-08-07] VITALS (9 sets, daily range): BP systolic 93–110; BP diastolic 53–61; PULSE 54–99; RESP 18–19
[2018-08-07] MEDS: SOD CHLORIDE 0.45% 1,000 ML IV SCH (05:12)
[2018-08-07] MEDS: METOPROLOL 50 MG TAB PO SCH (08:48)
[2018-08-07] MEDS ORDERED: PANTOPRAZOLE (EC) 40 MG TAB PO SCH (09:00)
[2018-08-07] MEDS: HYDROCODONE/APAP (5/325) TAB PO PRN ×2 (10:29→17:24)
--- NOTE | 2018-08-07 12:56 | PDOCDIS ---
Discharge Instructions DIAGNOSIS Discharge Diagnosis Chronic lower back pain CONDITION [id number] Patient Condition: [id number] Good HOME CARE INSTRUCTIONS: [id number] Diet Instructions: [id number] Regular ACTIVITY: [id number] Activity Restrictions: [id number] No Restrictions FOLLOW UP/APPOINTMENTS Follow-up Plan 1. Continue to take all medications as prescribed. 2. See Dr. Greenfield and Dr. Herrera in clinic as prescribed. 3. See your primary care doctor in 1-2 weeks. HAROLDO RODRIGUEZ MD August 07, 2018 12:56
--- NOTE | 2018-08-07 18:41 | DS ---
Date/Time of Note Date/Time of Note DATE: 08/07/18 TIME: 18:39 Discharge Summary Admission/Discharge Info Admit Date/Time August 06, 2018 at 15:15 Discharge Date/Time August 07, 2018 at 17:54 Discharge Diagnosis Chronic lower back pain Patient Condition: Good Hx of Present Illness 68-year-old male past medical history of portal vein thrombosis, kidney stones, coronary artery disease with bypass surgery in the past, myelodysplastic syndrome, low back pain, hypertension complains of weakness for 3 days. Patient also complaining of some mild flank pain rating to his left pelvic region. Also complaining of some constipation nausea, but no vomiting, no signs of any upper or lower GI bleeding, no hematuria. Patient denies any fevers chills. However he says he feels overall weak. Denies any focal neurological complaints. Denies any other current issues. When the patient came in today he was found with hemoglobin of 6.9. PRBC transfusion has been ordered as well today which is pending. Patient states he has been following up with his hematology oncology Dr. weekly including his last visit a few days ago. Hospital Course The patient was admitted with the above nonspecific symptoms, mostly due to his Hgb of 6.9. However on three repeat lab checks, without transfusion, Hgb was actually 10.0. This was a spurious lab value which did not necessitate admission. Of note, the patient was admitted to telemetry for unclear reasons. While on the monitor he was noted to have remarkable sinus arrhythmia with rate as low as 50s with long pauses and increasing up to 150s. However the patient denied any new palpitations, pressure, or other cardiac symptoms. He follows Dr. Herrera outpatient. I chose not to pursue further workup into this. Home Meds Reported Medications Omeprazole* (Omeprazole*) 20 Mg Capsule., 20 MG PO DAILY, #30 CAP 08/06/18 Apixaban* (Eliquis*) 5 Mg Tablet, 5 MG PO BID, TAB 08/06/18 Nitroglycerin* (Nitrostat*) 0.4 Mg Tab.subl, 0.4 MG SL Q5MIN PRN for CHEST PAIN, BOTTLE 08/06/18 Tamsulosin Hcl* (Flomax*) 0.4 Mg Cap.er.24h, 0.4 MG PO HS, CAP 08/06/18 Ruxolitinib Phosphate (Jakafi) 20 Mg Tablet, 20 MG PO BID, TAB 08/06/18 Metoprolol Tartrate* (Lopressor*) 50 Mg Tab, 50 MG PO BID, #60 TAB 08/06/18 Dicyclomine HCl (Dicyclomine HCl) 10 Mg Capsule, 10 MG PO TID PRN for DIARRHEA 08/06/18 Allopurinol* (Allopurinol*) 100 Mg Tablet, 100 MG PO TID, TAB 08/06/18 Discontinued Reported Medications Ruxolitinib Phosphate (Jakafi) 20 Mg Tablet, 20 MG PO BID, TAB 12/22/17 Dicyclomine HCl (Dicyclomine HCl) 10 Mg Capsule, 10 MG PO QID, CAP 01/08/17 Metoprolol Succinate* (Toprol XL*) 25 Mg Tab.sr.24h, 25 MG PO BID, #30 TAB 08/26/16 Tamsulosin Hcl* (Flomax*) 0.4 Mg Cap.er.24h, 0.4 MG PO HS, CAP 06/07/14 Allopurinol* (Allopurinol*) 100 Mg Tablet, 100 MG PO TID 04/12/12 Discontinued Scripts Ibuprofen* (Motrin*) 600 Mg Tab, 600 MG PO Q8 PRN for PAIN AND/OR INFLAMMATION, #30 TAB Prov:THAD EPSTEIN MD 07/29/18 Dicyclomine HCl (Dicyclomine HCl) 10 Mg Capsule, 10 MG PO TID PRN for ABDOMINAL CRAMPING, #20 CAP Prov:THAD EPSTEIN MD 07/29/18 Apixaban* (Eliquis*) 5 Mg Tablet, 5 MG PO BID, #60 TAB Prov:HAROLDO RODRIGUEZ MD 12/26/17 Hydrocodone/Acetaminophen ([place] 10-325 Tablet) 1 Each Tablet, 1 TAB PO Q6H PRN for PAIN, #7 TAB Prov:ABIMAEL KEENE MD 12/22/17 Follow-up Plan 1. Continue to take all medications as prescribed. 2. See Dr. Greenfield and Dr. Herrera in clinic as prescribed. 3. See your primary care doctor in 1-2 weeks. Primary Care Provider Not On Staff Doctor Time spent on discharge: > 30 minutes Pending Labs Laboratory Tests Test 08/06/18 22:02 08/07/18 06:00 Hemoglobin 10.1 g/dl (14.0-18.0) 10.1 g/dl (14.0-18.0) Hematocrit 31.7 % (42.0-52.0) 32.3 % (42.0-52.0) White Blood Count 10.7 10^3/ul (4.8-10.8) Red Blood Count 3.40 10^6/ul (4.70-6.10) Mean Corpuscular Volume 95.0 fl (82.0-101.0) Mean Corpuscular Hemoglobin 29.7 pg (29.0-33.0) Mean Corpuscular 31.3 g/dl (32.0-37.0) Hemoglobin Concent Red Cell Distribution Width 16.6 % (11.5-14.5) Platelet Count 207 10^3/UL (140-415) Mean Platelet Volume 11.7 fl (7.4-10.4) Immature Granulocytes % 2.900 % (0.001-0.429) Neutrophils % % (39.0-77.0) Segmented Neutrophils 85 % (39-77) % (Manual) Band Neutrophils % (Manual) 4 % (0-4) Lymphocytes % % (15.0-51.0) Lymphocytes % (Manual) 6 % (15-51) Monocytes % % (0.0-11.0) Eosinophils % % (0.0-7.0) Eosinophils % (Manual) 3 % (0-7) Basophils % % (0.0-2.0) Basophils % (Manual) 1 % (0-2) Metamyelocytes % (manual) 1 % (0-0) Nucleated Red Blood Cells % 2 % (0-0) Immature Granulocytes # 0.310 10^3/ul (0.0-0.031) Neutrophils # 10^3/ul (1.6-7.5) Neutrophils # (Manual) 9.1 10^3/ul (1.6-7.5) Band Neutrophils # 0.4 10^3/ul (0.0-0.6) Lymphocytes (Manual) 0.6 10^3/ul (0.8-2.9) Lymphocytes # 10^3/ul (0.8-2.9) Monocytes # 10^3/ul (0.3-0.9) Eosinophils # 10^3/ul (0.0-0.5) Basophils # 10^3/ul (0.0-0.1) Basophils # (Manual) 0.1 10^3/ul (0.0-0.0) Metamyelocytes # 0.1 10^3/ul (0.0-0.0) Nucleated Red Blood Cells # 10^3/ul (0.0-0.0) Platelet Estimate NORMAL Giant Platelets 1 % (0-0) Polychromasia 2+ (0-0) Poikilocytosis 3+ (0-0) Anisocytosis 3+ (0-0) Microcytosis 3+ (0-0) Tear Drop Cells 1+ (0-0) Ovalocytes 2+ (0-0) Elliptocytes 1+ (0-0) Sodium Level 137 mmol/L (135-144) Potassium Level 4.1 mmol/L (3.5-5.1) Chloride Level 104 mmol/L (97-110) Carbon Dioxide Level 23 mmol/L (21-31) Anion Gap 10 (5-13) Blood Urea Nitrogen 10 mg/dl (7-20) Creatinine 0.93 mg/dl (0.61-1.24) Est Glomerular Filtrat > 60 mL/min (>60) Rate mL/min Glucose Level 88 mg/dl (70-220) Hemoglobin A1c 5.4 % (0-5.9) Calcium Level 8.8 mg/dl (8.4-10.2) Phosphorus Level 3.7 mg/dl (2.5-4.9) Magnesium Level 1.7 mg/dl (1.7-2.5) Triglycerides Level 162 mg/dl (0-149) Cholesterol Level 123 mg/dl (100-200) LDL Cholesterol, Calculated 66 mg/dl HDL Cholesterol 25 mg/dl (31-75) Cholesterol/HDL Ratio 4.9 RATIO Thyroid Stimulating 4.800 MIU/L (0.465-4.680) Hormone (TSH) HAROLDO RODRIGUEZ MD August 07, 2018 18:41
== END 2018-08-07 17:54 | disposition home or self-care (01) | DRG 552 ==
LOC: E/R 11:59 → TEL 15:15
PROVIDERS: ADMIT Hospitalist; ATTEND Hospitalist
DX: M54.5 Low back pain (principal); R53.1 Weakness; G89.29 Other chronic pain; I10 Essential (primary) hypertension; D46.9 Myelodysplastic syndrome, unspecified; I25.10 Atherosclerotic heart disease of native coronary artery without angina pectoris; Z95.1 Presence of aortocoronary bypass graft
CPT/HCPCS: 36415; 74176; 80048; 80053; 80061; 81001; 83036; 83690; 83735; 84100; 84439; 84443; 84484; 85014; 85018; 85025; 85610; 85730; 86850; 86900; 86901; 86920; 87086; 93005; 97161; J2270; J7040

== ENCOUNTER 2018-08-22 07:27 | Emergency (ER) | payer MEDICARE, OTHER ==
[~2018-08-22] VITALS: Wt 66.3 kg
[~2018-08-22 07:27] MED LIST changes: -HYDR-3980 PO; -IBUP-1542 PO; -METO-335 PO; +METO-429 PO; +NITR0.4T39 SL; +OMEP20CA16 PO
--- NOTE | 2018-08-22 09:44 | ERD ---
ER Documentation Chief Complaint Chief Complaint gen weakness and fatigue for the past few days. hx of flank. no n/v HPI Patient is a 5-year-old male with anemia who presents for weakness. The patient was brought in by ambulance. He has had 3 to 4 days of "kidney pain". He tried Momence this a.m. for pain in his pain is gone completely. He has generalized weakness however. He has a history of anemia. He denies bleeding. He said that he gets a "bloodshot" weekly. Upon review of old medical records the patient has multiple visits to the ER. He had a recent admission on August 07 for anemia. ROS All systems reviewed and are negative except as per history of present illness. Medications Home Meds Reported Medications Omeprazole* (Omeprazole*) 20 Mg Capsule.dr, 20 MG PO DAILY, #30 CAP 08/06/18 Apixaban* (Eliquis*) 5 Mg Tablet, 5 MG PO BID, TAB 08/06/18 Nitroglycerin* (Nitrostat*) 0.4 Mg Tab.subl, 0.4 MG SL Q5MIN PRN for CHEST PAIN, BOTTLE 08/06/18 Tamsulosin Hcl* (Flomax*) 0.4 Mg Cap.er.24h, 0.4 MG PO HS, CAP 08/06/18 Ruxolitinib Phosphate (Jakafi) 20 Mg Tablet, 20 MG PO BID, TAB 08/06/18 Metoprolol Tartrate* (Lopressor*) 50 Mg Tab, 50 MG PO BID, #60 TAB 08/06/18 Dicyclomine HCl (Dicyclomine HCl) 10 Mg Capsule, 10 MG PO TID PRN for DIARRHEA 08/06/18 Allopurinol* (Allopurinol*) 100 Mg Tablet, 100 MG PO TID, TAB 08/06/18 Allergies Allergies: Coded Allergies: No Known Allergy (Unverified , 08/06/18) PMhx/Soc History of Surgery: Yes (CABG, kidney stone removal) Anesthesia Reaction: Yes Hx Neurological Disorder: No Hx Respiratory Disorders: Yes Hx Cardiac Disorders: Yes (CABG) Hx Psychiatric Problems: No Hx Miscellaneous Medical Probl: Yes (BPH) Hx Alcohol Use: No Hx Substance Use: No Hx Tobacco Use: No Smoking Status: Never smoker FmHx Family History: No diabetes Physical Exam Vitals Vital Signs Date Temp Pulse Resp B/P (MAP) Pulse Ox O2 O2 Flow FiO2 Time Delivery Rate 08/22/18 70 16 98/66 (77) 98 Room Air 08:23 08/22/18 99.0 86 18 110/67 98 07:37 (81) Physical Exam Const: No acute distress Head: Atraumatic Eyes: Normal Conjunctiva ENT: Normal External Ears, Nose and Mouth. Neck: Full range of motion. No meningismus. Resp: Clear to auscultation bilaterally Cardio: Regular rate and rhythm, no murmurs Abd: Soft, non tender, non distended. Normal bowel sounds Skin: Pale skin Back: No midline or flank tenderness Ext: No cyanosis, or edema Neur: Awake and alert, cranial nerves II through XII are intact, strength is 5 out of 5 in all 4 extremities, no slurred speech Psych: Normal Mood and Affect Result Diagram: 08/22/18 0808/22/18 08 Results 24 hrs Laboratory Tests Test 08/22/18 08:01 White Blood Count 10.7 10^3/ul Red Blood Count 4.10 10^6/ul Hemoglobin 12.2 g/dl Hematocrit 39.0 % Mean Corpuscular Volume 95.1 fl Mean Corpuscular Hemoglobin 29.8 pg Mean Corpuscular Hemoglobin Concent 31.3 g/dl Red Cell Distribution Width 18.5 % Platelet Count 237 10^3/UL Mean Platelet Volume 11.4 fl Immature Granulocytes % 3.900 % Neutrophils % 78.1 % Lymphocytes % 7.6 % Monocytes % 6.4 % Eosinophils % 1.8 % Basophils % 2.2 % Nucleated Red Blood Cells % 1.5 /100WBC Immature Granulocytes # 0.420 10^3/ul Neutrophils # 8.4 10^3/ul Lymphocytes # 0.8 10^3/ul Monocytes # 0.7 10^3/ul Eosinophils # 0.2 10^3/ul Basophils # 0.2 10^3/ul Nucleated Red Blood Cells # 0.2 10^3/ul Prothrombin Time 14.3 Sec Prothrombin Time Ratio 1.1 INR International Normalized Ratio 1.10 Activated Partial Thromboplast Time 40.6 Sec Sodium Level 133 mmol/L Potassium Level 4.3 mmol/L Chloride Level 97 mmol/L Carbon Dioxide Level 27 mmol/L Anion Gap 9 Blood Urea Nitrogen 8 mg/dl Creatinine 0.99 mg/dl Est Glomerular Filtrat Rate mL/min > 60 mL/min Glucose Level 91 mg/dl Calcium Level 8.9 mg/dl Total Bilirubin 0.9 mg/dl Direct Bilirubin 0.00 mg/dl Indirect Bilirubin 0.9 mg/dl Aspartate Amino Transf (AST/SGOT) 21 IU/L Alanine Aminotransferase (ALT/SGPT) 19 IU/L Alkaline Phosphatase 74 IU/L Troponin I < 0.012 ng/ml Total Protein 6.9 g/dl Albumin 4.5 g/dl Globulin 2.40 g/dl Albumin/Globulin Ratio 1.87 Procedures/MDM Patient is a 68-year-old male with anemia who presents with weakness. He was found to have mild anemia with a hemoglobin of 12. He does not require transfusion at this time. Other laboratory studies are basically normal. I doubt serious bacterial infection or sepsis. I doubt stroke or severe anemia. I believe outpatient management is appropriate. The patient will need to follow-up closely with his primary doctor and oncologist however within 24 to 48 hours. He can return sooner for any worsening symptoms. He was given copies of laboratory studies prior to discharge. Departure Diagnosis: Primary Impression: Weakness Additional Impression: Anemia Anemia type: unspecified type Qualified Codes: D64.9 - Anemia, unspecified Condition: Fair Patient Instructions: Anemia, Weakness, Unk Cause Referrals: Your doctor Additional Instructions: Call your primary care doctor TOMORROW for an appointment during the next 1-2 days.See the doctor sooner or return here if your condition worsens before your appointment time. ABIMAEL KEENE MD August 22, 2018 09:44
[2018-08-22] MEDS ORDERED: ONDANSETRON 4 MG INJ IV STA (09:51)
[2018-08-22 10:22] VITALS: BP 105/70; PULSE 68; RESP 17
== END 2018-08-22 10:26 | disposition home or self-care (01) ==
LOC: E/R 07:27
DX: D64.9 Anemia, unspecified (principal); Z95.1 Presence of aortocoronary bypass graft
CPT/HCPCS: 36415; 80053; 84484; 85025; 85610; 85730; 86850; 86900; 86901; 93005; 96374; 99284; J2405

== ENCOUNTER 2018-08-24 04:06 | Emergency (ER) | payer MEDICARE, OTHER ==
[~2018-08-24] VITALS: Ht 170.2 cm; Wt 66.4 kg
[2018-08-24 04:14] VITALS: Ht 170.2 cm; Wt 66.4 kg
[2018-08-24] MEDS ORDERED: morphine 4 MG/ML VIAL IV STA (04:50)
[2018-08-24] MEDS ORDERED: ONDANSETRON 4 MG INJ IV STA ×2 (04:50→06:27)
--- NOTE | 2018-08-24 06:32 | ERD ---
ER Documentation Chief Complaint Chief Complaint LOWER BACK PAIN X 10 DAYS HPI This is a 68-year-old male that presents to the emergency department complaining of left flank pain. The patient indicates he has a history of chronic back pain but for the past 10 days has been having worsening of his pain that now has radiated to the left flank region. He states the pain is 10 out of 10 in intensity. He said no hemoptysis no hematemesis no melanotic stools. He denies any fever shaking or chills. He has been taking [place] every 4 hours with no relief. He said a decrease in appetite. He states the pain is exacerbated when he ambulates. He denies any saddle anesthesia. He has no changes in his bladder or bowel frequency. He states he has a past medical history of polycythemia vera. He denies any chest pain. He has no shortness of breath. He states the left flank pain is a sharp shooting pain. There is no alleviating or exacerbating factors. The pain has been persistent. ROS All systems reviewed and are negative except as per history of present illness. Medications Home Meds Active Scripts Naloxone HCl nasal spray (Narcan 4 mg/0.1 mL nasal) 4 Mg [place], 4 MG NS .Q2-3MIN for OPIOID OVERDOSE, #2 SPRAY 0 Refills [place] 0.1 mL into one nostril. Repeat with second device into other nostril after 2-3 minutes if no or minimal response Prov:HAFSA CHAVIS MD 08/24/18 Docusate Sodium* (Colace*) 100 Mg Capsule, 100 MG PO TID, #30 CAP Prov:HAFSA CHAVIS MD 08/24/18 Oxycodone HCl/Acetaminophen (Percocet 5-325 mg Tablet) 1 Each Tablet, 1 EACH PO Q6, #20 TAB Prov:HAFSA CHAVIS MD 08/24/18 Reported Medications Omeprazole* (Omeprazole*) 20 Mg Capsule.dr, 20 MG PO DAILY, #30 CAP 08/06/18 Apixaban* (Eliquis*) 5 Mg Tablet, 5 MG PO BID, TAB 08/06/18 Nitroglycerin* (Nitrostat*) 0.4 Mg Tab.subl, 0.4 MG SL Q5MIN PRN for CHEST PAIN, BOTTLE 08/06/18 Tamsulosin Hcl* (Flomax*) 0.4 Mg Cap.er.24h, 0.4 MG PO HS, CAP 08/06/18 Ruxolitinib Phosphate (Jakafi) 20 Mg Tablet, 20 MG PO BID, TAB 08/06/18 Metoprolol Tartrate* (Lopressor*) 50 Mg Tab, 50 MG PO BID, #60 TAB 08/06/18 Dicyclomine HCl (Dicyclomine HCl) 10 Mg Capsule, 10 MG PO TID PRN for DIARRHEA 08/06/18 Allopurinol* (Allopurinol*) 100 Mg Tablet, 100 MG PO TID, TAB 08/06/18 Allergies Allergies: Coded Allergies: No Known Allergy (Unverified , 08/06/18) PMhx/Soc History of Surgery: Yes (CABG, kidney stone removal) Anesthesia Reaction: Yes Hx Neurological Disorder: No Hx Respiratory Disorders: Yes Hx Cardiac Disorders: Yes (CABG) Hx Psychiatric Problems: No Hx Miscellaneous Medical Probl: Yes (BPH, chronic back pain) Hx Alcohol Use: No Hx Substance Use: No Hx Tobacco Use: No Smoking Status: Never smoker Physical Exam Vitals Vital Signs Date Temp Pulse Resp B/P (MAP) Pulse Ox O2 O2 Flow FiO2 Time Delivery Rate 08/24/18 99.0 101 20 146/78 99 04:14 (100) Physical Exam Constitutional:Well-developed. Well-nourished. HEENT:Normocephalic. Atraumatic.Pupils were equal round reactive to light. Moist mucous membranes.No tonsillar exudates. Neck: No nuchal rigidity. No lymphadenopathy. No posterior cervical spine tenderness or step-offs. Respiratory: Not using accessory muscles of respiration.Lungs were clear to auscultation bilaterally. No rhonchi. No rales. Mild wheezing bilaterally Cardiovascular: Regular rate regular rhythm.No murmurs. No rubs were appreciated.S1, S2 normal. Distal pulses are palpable 2+ bilaterally. GI: Abdomen was soft. Nontender. Non Distended. No pulsatile abdominal masses or bruits. No rebound. No guarding. Bowel sounds were present and normal. Left CVA tenderness. Muscle skeletal: Full range of motion of both the upper and lower extremities bilaterally.Normal muscle tone.No assymetrical calf tenderness or swelling. Tenderness over the thoracic spine T11-T12 and L1-L3 with palpation and percussion. Skin: No petechia, no purpura. No lesions on the palms or the soles of the feet. No maculopapular rash. NEURO: Patient was alert, awake, orientated x3.No facial droop. Gait observed and normal with no ataxia.Speech had regular rate and rhythm. No focal neurological deficits. Result Diagram: 08/24/18 0513 08/24/18 0513 Results 24 hrs Laboratory Tests Test 08/24/18 05:13 White Blood Count 11.7 10^3/ul Red Blood Count 4.27 10^6/ul Hemoglobin 12.6 g/dl Hematocrit 40.2 % Mean Corpuscular Volume 94.1 fl Mean Corpuscular Hemoglobin 29.5 pg Mean Corpuscular Hemoglobin Concent 31.3 g/dl Red Cell Distribution Width 18.2 % Platelet Count 307 10^3/UL Mean Platelet Volume 12.4 fl Immature Granulocytes % 5.600 % Neutrophils % % Segmented Neutrophils % (Manual) 77 % Band Neutrophils % (Manual) 14 % Lymphocytes % % Lymphocytes % (Manual) 1 % Reactive Lymphocytes % (Manual) 2 % Monocytes % % Monocytes % (Manual) 2 % Eosinophils % % Eosinophils % (Manual) 2 % Basophils % % Basophils % (Manual) 1 % Metamyelocytes % (manual) 1 % Nucleated Red Blood Cells % 1 % Immature Granulocytes # 0.650 10^3/ul Neutrophils # 10^3/ul Neutrophils # (Manual) 9.2 10^3/ul Band Neutrophils # 1.6 10^3/ul Lymphocytes (Manual) 0.1 10^3/ul Lymphocytes # 10^3/ul Reactive Lymphocytes # 0.2 10^3/ul Monocytes # 10^3/ul Monocytes # (Manual) 0.2 10^3/ul Eosinophils # 10^3/ul Basophils # 10^3/ul Basophils # (Manual) 0.1 10^3/ul Metamyelocytes # 0.1 10^3/ul Nucleated Red Blood Cells # 10^3/ul Platelet Estimate NORMAL Giant Platelets 1 % Polychromasia 1+ Poikilocytosis 2+ Anisocytosis 1+ Microcytosis 1+ Macrocytosis 1+ Spherocytes 1+ Prothrombin Time 14.5 Sec Prothrombin Time Ratio 1.1 INR International Normalized Ratio 1.12 Activated Partial Thromboplast Time 38.4 Sec Sodium Level 132 mmol/L Potassium Level 4.3 mmol/L Chloride Level 98 mmol/L Carbon Dioxide Level 24 mmol/L Anion Gap 10 Blood Urea Nitrogen 9 mg/dl Creatinine 1.06 mg/dl Est Glomerular Filtrat Rate mL/min > 60 mL/min Glucose Level 100 mg/dl Calcium Level 9.1 mg/dl Total Bilirubin 1.0 mg/dl Direct Bilirubin 0.00 mg/dl Indirect Bilirubin 1.0 mg/dl Aspartate Amino Transf (AST/SGOT) 31 IU/L Alanine Aminotransferase (ALT/SGPT) 25 IU/L Alkaline Phosphatase 81 IU/L Troponin I < 0.012 ng/ml Total Protein 7.0 g/dl Albumin 4.6 g/dl Globulin 2.40 g/dl Albumin/Globulin Ratio 1.91 Current Medications Medications Dose Sig/Tamiko Start Time Status Last (Trade) Ordered Route PRN Stop Time Admin Dose Reason Admin Morphine 4 mg ONCE STAT 08/24/18 DC 08/24/18 Sulfate IV 04:50 05:20 (morphine) 08/24/18 04:53 Ondansetron 4 mg ONCE STAT 08/24/18 DC 08/24/18 HCl (Zofran IV 04:50 05:20 Inj) 08/24/18 04:53 1 mg ONCE STAT 08/24/18 DC Hydromorphone IV 06:27 HCl 08/24/18 06:28 (Dilaudid) Ondansetron 4 mg ONCE STAT 08/24/18 DC HCl (Zofran IV 06:27 Inj) 08/24/18 06:28 Diazepam 5 mg ONCE ONCE 08/24/18 DC (Valium) PO 07:00 08/24/18 07:01 Procedures/MDM The patient presented to the emergency department with back pain. My differential diagnosis included but was not limited to spinal origins of the pain such as fracture, osteomyelitis, epidural abscess, neoplasm, spondylolishtesis, discogenic, cauda equina syndrome or musculoligamentous. Nonspinal causes such as AAA, upper UTI, renal colic, aortic dissection, abdominal neoplasm were also considered as an etiology into their pain. I obtained a 12-lead EKG tracing to rule out for atypical myocardial infarction. 12 Lead EKG tracing ordered and reviewed by myself showed: Normal sinus rhythm of 67 bpm and no arrhythmia. Accelerated junctional rhythm with PVCs. CT interval normal. QRS duration normal. No ST segment elevation No ST segment depression. No changes consistent with acute ischemia. The patient denies any history of tobacco use. The patient had new onset wheezing on physical exam it was very mild. Therefore I felt it was necessary to obtain a chest radiograph. This was reviewed by the radiologist myself and there was cardiomegaly but no pulmonary vascular congestion. No infiltrates. The patient was not complaining of any respiratory distress therefore no nebuli zer treatments were given. The patient was not hypoxic The patient received intravenous morphine but there is no improvement of his symptoms. Thoracic spine radiographic imaging was obtained as well as the lumbar spine and there is no underlying fractures. However this CT lumbar spine reviewed by the radiologist indicate the followin. Degenerative changes as above without acute fractures subluxations or stenosis. 2. The bones are osteopenic. Note that there are scattered ill-defined areas of lucency involving the right left pelvic bones and scattered throughout the lumbar spine concerning for lytic metastasis. Recommend consideration of a bone scan for further evaluation. Thoracic spine radiograph reviewed with the radiologist also indicated the followin. Degenerate changes as above without acute fractures or subluxations. 2. Osteopenia. Numerous scattered ill-defined small lucencies involving the thoracic and lower cervical spine concerning for lytic metastasis. Bone scan is suggested. 3. Severe degenerate disease C C7 days with bilateral neural foraminal narrowin g. 4. No other levels of neural foraminal narrowing. No central spinal canal stenosis. The patient states he has no underlying history of any known neoplasm. I explained to the patient that I felt it was extremely important for him to follow-up immediately with his PCP as I could not rule out the possibility of his lower back pain being a result of a metastatic process. The patient still had a significant amount of pain and therefore at this time I do feel is necessary to obtain a CT scan of the patient's abdomen and there was no evidence of obstructive uropathy. The following was found on CT scan of abdomen: 1. Punctate 2 mm nonobstructing mid to inferior right renal calcified calculus. No other calcified urinary calculi. No obstructive uropathy bilaterally. 2. 1.2 cm left renal cyst. 3. No gastrointestinal disease. 4. Marked splenomegaly without focal splenic lesion. 5. Diffuse mild ill-defined lucencies throughout the lower thoracic lumbar spine and pelvis concerning for blastic metastasis. A follow-up bone scan may be helpful. 6. Moderate enlarged prostate gland. Correlation with PSA levels may be helpful. Observation Note: Time: 4 hours Family Hx: No Hypertension Evaluation: Multiple exams showed improving symptoms and no evidence of obstructive uropathy and the patient's pain has significantly improved. Departure Diagnosis: Primary Impression: Back pain Back pain location: low back pain Chronicity: chronic Back pain laterality: bilateral Sciatica presence: without sciatica Qualified Codes: M54.5 - Low back pain; G89.29 - Other chronic pain Additional Impression: Pain from bone metastases Condition: HAFSA Holden MD August 24, 2018 06:32
[2018-08-24] MEDS: HYDROmorphONE 1 MG/ML SYG IV STA ×2 (06:34→08:47)
[2018-08-24] MEDS ORDERED: DIAZEPAM 5 MG TAB PO ONE (07:00)
[2018-08-24] MEDS ORDERED: OXYC-279 PO (07:30)
[2018-08-24] MEDS ORDERED: DOCU-144 PO (07:30)
[2018-08-24] MEDS ORDERED: NALO4SPR NS (07:33)
[2018-08-24 10:00] VITALS: BP 132/76; PULSE 74; RESP 20
== END 2018-08-24 10:00 | disposition home or self-care (01) ==
LOC: FTE 04:06 → E/R 10:00
DX: M54.5 Low back pain (principal); G89.3 Neoplasm related pain (acute) (chronic); C79.51 Secondary malignant neoplasm of bone; R10.9 Unspecified abdominal pain; Z95.1 Presence of aortocoronary bypass graft
CPT/HCPCS: 36415; 71045; 72128; 72131; 74176; 80053; 84153; 84154; 84484; 85025; 85610; 85730; 93005; 96374; 96375; 96376; 99285; J1170; J2270; J2405

== ENCOUNTER 2018-09-02 06:33 | Inpatient (IN) | payer MEDICARE, OTHER ==
[~2018-09-02] VITALS: Ht 170.2 cm; Wt 65.0 kg
[~2018-09-02 06:33] MED LIST changes: +DOCU-144 PO; +NALO4SPR NS; +OXYC-279 PO
[2018-09-02 06:37] VITALS: Ht 170.2 cm; Wt 65.0 kg
--- NOTE | 2018-09-02 06:45 | ERD ---
ER Documentation Chief Complaint Chief Complaint CHRONIC BACK PAIN, NO BM X3 WEEKS, NOT EATING OR DRINKING HPI 68-year-old male past medical history of portal vein thrombosis, kidney stones, coronary artery disease with bypass surgery in the past, polycythemia vera, chronic upper back pain, hypertension presenting by ambulance for complaints of acute low back pain for the past 12 days. He was seen here multiple times this past month in July, last visit being August 24, 2018. At that time he had a CT of his thoracic and lumbar spine as well as his abdomen and pelvis. It was noted that he had multiple lucencies in his pelvis and spine concerning for metastatic malignant disease. Patient was prescribed Percocet at that visit upon discharge. He is returning for worsening pain. He has complaints of associated constipation. No numbness or tingling in his back or lower extremities. He is urinating more frequently but denies any dysuria or hematuria. No fevers or chills. He states that he has a history of polycythemia vera that is under control. His heme-onc doctor is Dr. Greenfield. He went to his primary care doctor with the reports of his CT scans and states that his primary care doctor stated he needed physical therapy. No referrals were given. The patient is confused as to what he should do about this pain. I do believe that there is some problem with communication with his doctors as he is [place] speaking. ROS All systems reviewed and are negative except as per history of present illness. Medications Home Meds Active Scripts Naloxone HCl nasal spray (Narcan 4 mg/0.1 mL nasal) 4 Mg [place], 4 MG NS .Q2-3MIN for OPIOID OVERDOSE, #2 SPRAY 0 Refills [place] 0.1 mL into one nostril. Repeat with second device into other nostril after 2-3 minutes if no or minimal response Prov:HAFSA CHAVIS MD 08/24/18 Docusate Sodium* (Colace*) 100 Mg Capsule, 100 MG PO TID, #30 CAP Prov:HAFSA CHAVIS MD 08/24/18 Oxycodone HCl/Acetaminophen (Percocet 5-325 mg Tablet) 1 Each Tablet, 1 EACH PO Q6, #20 TAB Prov:HAFSA CHAVIS MD 08/24/18 Reported Medications Omeprazole* (Omeprazole*) 20 Mg Capsule., 20 MG PO DAILY, #30 CAP 08/06/18 Apixaban* (Eliquis*) 5 Mg Tablet, 5 MG PO BID, TAB 08/06/18 Nitroglycerin* (Nitrostat*) 0.4 Mg Tab.subl, 0.4 MG SL Q5MIN PRN for CHEST PAIN, BOTTLE 08/06/18 Tamsulosin Hcl* (Flomax*) 0.4 Mg Cap.er.24h, 0.4 MG PO HS, CAP 08/06/18 Ruxolitinib Phosphate (Jakafi) 20 Mg Tablet, 20 MG PO BID, TAB 08/06/18 Metoprolol Tartrate* (Lopressor*) 50 Mg Tab, 50 MG PO BID, #60 TAB 08/06/18 Dicyclomine HCl (Dicyclomine HCl) 10 Mg Capsule, 10 MG PO TID PRN for DIARRHEA 08/06/18 Allopurinol* (Allopurinol*) 100 Mg Tablet, 100 MG PO TID, TAB 08/06/18 Allergies Allergies: Coded Allergies: No Known Allergy (Unverified , 08/06/18) PMhx/Soc History of Surgery: Yes (CABG, kidney stone removal) Anesthesia Reaction: Yes Hx Neurological Disorder: No Hx Respiratory Disorders: Yes Hx Cardiac Disorders: Yes (CAD, hypertension) Hx Psychiatric Problems: No Hx Miscellaneous Medical Probl: Yes (BPH, chronic back pain, polycythemia vera) Hx Alcohol Use: No Hx Substance Use: No Hx Tobacco Use: No FmHx Family History: No diabetes Physical Exam Vitals Vital Signs Date Temp Pulse Resp B/P (MAP) Pulse Ox O2 O2 Flow FiO2 Time Delivery Rate 09/02/18 99.0 103 16 112/84 97 06:37 (93) Physical Exam Const: Appears to be in distress secondary to pain, nontoxic Head: Atraumatic Eyes: Normal Conjunctiva ENT: Normal External Ears, Nose and Mouth. Neck: Full range of motion. No meningismus. Resp: Clear to auscultation bilaterally Cardio: Regular rate and rhythm, no murmurs. 2+ distal pulses Abd: Soft, mild left-sided tenderness with no rebound or guarding, non distended. No masses. Normal bowel sounds Skin: No petechiae or rashes Back: Diffuse midline tenderness with no step-offs. Ext: No cyanosis, or edema Neur: Awake and alert, oriented x3, no facial asymmetry, normal speech, strength and sensations intact in all 4 extremities. Psych: Normal Mood and Affect Result Diagram: 09/02/18 0720 09/02/18 0720 Results 24 hrs Laboratory Tests Test 09/02/18 07:20 White Blood Count 16.4 10^3/ul Red Blood Count 4.16 10^6/ul Hemoglobin 12.4 g/dl Hematocrit 37.9 % Mean Corpuscular Volume 91.1 fl Mean Corpuscular Hemoglobin 29.8 pg Mean Corpuscular Hemoglobin Concent 32.7 g/dl Red Cell Distribution Width 17.0 % Platelet Count 326 10^3/UL Mean Platelet Volume 10.9 fl Immature Granulocytes % 2.900 % Neutrophils % 81.3 % Lymphocytes % 7.6 % Monocytes % 3.9 % Eosinophils % 3.1 % Basophils % 1.2 % Nucleated Red Blood Cells % 0.0 /100WBC Immature Granulocytes # 0.480 10^3/ul Neutrophils # 13.3 10^3/ul Lymphocytes # 1.2 10^3/ul Monocytes # 0.6 10^3/ul Eosinophils # 0.5 10^3/ul Basophils # 0.2 10^3/ul Nucleated Red Blood Cells # 0.0 10^3/ul Sodium Level 127 mmol/L Potassium Level 4.5 mmol/L Chloride Level 94 mmol/L Carbon Dioxide Level 21 mmol/L Anion Gap 12 Blood Urea Nitrogen 10 mg/dl Creatinine 0.94 mg/dl Est Glomerular Filtrat Rate mL/min > 60 mL/min Glucose Level 86 mg/dl Calcium Level 8.8 mg/dl Total Bilirubin 0.9 mg/dl Direct Bilirubin 0.00 mg/dl Indirect Bilirubin 0.9 mg/dl Aspartate Amino Transf (AST/SGOT) 24 IU/L Alanine Aminotransferase (ALT/SGPT) 34 IU/L Alkaline Phosphatase 88 IU/L Total Protein 6.7 g/dl Albumin 4.1 g/dl Globulin 2.60 g/dl Albumin/Globulin Ratio 1.57 Current Medications Medications Dose Sig/[place] Start Time Status Last (Trade) Ordered Route PRN Stop Time Admin Dose Reason Admin Sodium 1,000 ml @ Q1H STAT 09/02/18 DC 09/02/18 Chloride 1,000 mls/hr IV 07:11 09/02/18 07:39 08:10 Ondansetron 4 mg BR[place]GE ORDER 09/02/18 DC HCl (Zofran PRN IV 08:00 09/02/18 Inj) NAUSEA/VOMITI 08:59 NG 650 mg ER BRIDGE 09/02/18 DC Acetaminophen PRN PO 08:00 09/02/18 (Tylenol .MILD PAIN 08:59 Tab) 1-3 OR TEMP Morphine 6 mg Q2 PRN IV 09/02/18 Sulfate Severe pain 08:00 (morphine) Allopurinol 100 mg TID PO 09/02/18 (Zyloprim) 09:00 Apixaban 5 mg BID PO 09/02/18 (Eliquis) 09:00 Dicyclomine 10 mg TID PRN 09/02/18 HCl PO DIARRHEA 08:30 (Bentyl) Docusate 100 mg TID PO 09/02/18 Sodium 09:00 (Colace) Metoprolol 50 mg BID PO 09/02/18 Tartrate 09:00 (Lopressor) Tamsulosin 0.4 mg HS PO 09/02/18 HCl 21:00 (Flomax) 20 mg DAILY PO 09/02/18 UNV Miscellaneous 09:00 Information 20 mg BID PO 09/02/18 UNV Miscellaneous 09:00 Information IV Flush 3 ml PER 09/02/18 (NS 3 ml) PROTOCOL IV 08:30 Ondansetron 4 mg Q6H PRN 09/02/18 HCl (Zofran IV 08:30 Inj) NAUSEA/VOMITI NG 650 mg Q6H PRN 09/02/18 Acetaminophen PO .PAIN 1-3 08:30 (Tylenol OR TEMP Tab) 650 mg Q6H PRN 09/02/18 Acetaminophen HI .PAIN 1-3 08:30 (Tylenol OR TEMP Supp) 1 tab Q6H PRN 09/02/18 Acetaminophen PO .MOD PAIN 08:30 / 4-6 Hydrocodone Bitart ([place] (5/325)) 2 tab Q6H PRN 09/02/18 Acetaminophen PO .SEVERE 08:30 / PAIN 7-10 Hydrocodone Bitart ([place] (5/325)) Morphine 2 mg Q4H PRN 09/02/18 Sulfate IV .SEVERE 08:30 (morphine) PAIN 7-10 Docusate 100 mg Q12H PRN 09/02/18 Sodium PO 08:30 (Colace) .CONSTIPATION Magnesium 30 ml DAILY PRN 09/02/18 Hydroxide PO 08:30 (Milk Of Mag) .CONSTIPATION Bisacodyl 10 mg DAILY PRN 09/02/18 (Dulcolax HI 08:30 Supp) .CONSTIPATION Sodium 1,000 ml @ [id number] IV 09/02/18 Chloride 75 mls/hr 08:30 Procedures/MDM EMERGENT LABS AND DIAGNOSTIC STUDIES: Lab Results above were reviewed and interpreted by me. CBC: no anemia or evidence of infection CMP: Hyponatremia, hypochloremia, unclear etiology. No evidence of clinically significant electrolyte abnormality, acidosis, renal failure, hypoglycemia, liver disease, or biliary obstruction UA: Pending Radiology Results as interpreted by Radiology below were reviewed by Rony Oh MD: CT Chest: IMPRESSION: 1. Severe splenomegaly. 2. Sclerotic changes of the spine are degenerative in nature, not related to blastic metastases. 3. Scattered benign chronic senescent changes. Initial Nursing notes reviewed. Previous Medical Records requested via the Electronic Health Record. EMERGENCY DEPARTMENT COURSE / MEDICAL DECISION MAKING: Patient is presenting with severe back pain, not improving or well controlled by Percocet he is taking at home. Vitals were notable for tachycardia, likely secondary to his pain. I do not suspect sepsis, spinal abscess, or spinal fracture. I did review his CTs from his previous visit on August 24. It appears he has multiple lucencies in the spine and pelvis, concerning for malignancy. I contacted his tax form preparer oncologist Dr. Greenfield, and spoke with the On-call covering physician, Dr. Espinal. I feel the patient requires admission for pain control and further work-up. At this time he is neurovascularly intact and does not require emergent MRI. Dr. Espinal is happy to see the patient and recommended getting a CT of his chest as well as SPEP UPEP, which were ordered. Accepting Care Team: Current data and ongoing care discussed. Time: Time of admission Primary Provider: Dr. Saeed Consulting: Dr. Espinal with hematology oncology Outstanding Data: UPEP, SPEP Departure Diagnosis: Primary Impression: Intractable back pain Additional Impressions: Mass of spine Hyponatremia Leukocytosis Leukocytosis type: unspecified Qualified Codes: D72.829 - Elevated white blood cell count, unspecified Splenomegaly Condition: Fair ALEXSANDER OH MD Sep 02, 2018 06:45
[2018-09-02] MEDS ORDERED: SOD CHLORIDE 0.9% 1,000 ML IV STA (07:11)
[2018-09-02] MEDS ORDERED: ONDANSETRON 4 MG INJ IV PRN ×2 (08:00→08:30)
[2018-09-02] MEDS ORDERED: morphine 10 MG INJ IV PRN (08:00)
[2018-09-02] MEDS ORDERED: ACETAMINOPHEN 325 MG TAB PO PRN ×2 (08:00→08:30)
[2018-09-02] MEDS ORDERED: MAGNESIUM HYDROXIDE 30ML CUP PO PRN (08:30)
[2018-09-02] MEDS ORDERED: DICYCLOMINE 10 MG CAP PO PRN (08:30)
[2018-09-02] MEDS ORDERED: BISACODYL 10 MG SUPP PR PRN (08:30)
[2018-09-02] MEDS ORDERED: HYDROCODONE/APAP (5/325) TAB PO PRN (08:30)
[2018-09-02] MEDS ORDERED: NACL 0.9% 3 ML SYG IV SCH (08:30)
[2018-09-02] MEDS ORDERED: ACETAMINOPHEN 650 MG SUPP PR PRN (08:30)
[2018-09-02] MEDS ORDERED: DOCUSATE SODIUM 100 MG CAP PO PRN (08:30)
[2018-09-02] MEDS: METOPROLOL 50 MG TAB PO SCH ×2 (09:00→20:21)
[2018-09-02] MEDS: APIXABAN 5 MG TABLET PO SCH ×2 (09:00→20:21)
[2018-09-02] MEDS: ALLOPURINOL 100 MG TAB PO SCH ×3 (09:00→20:22)
[2018-09-02] MEDS ORDERED: RUXOLITINIB PHOSPHATE 20 MG XX SCH (09:00)
[2018-09-02] MEDS: PANTOPRAZOLE (EC) 40 MG TAB PO SCH (10:00)
[2018-09-02 10:02] VITALS: BP 105/57; PULSE 65; RESP 14
[2018-09-02] MEDS ORDERED: LACTULOSE 30ML CUP PO PRN (10:30)
[2018-09-02] MEDS: SOD CHLORIDE 0.9% 1,000 ML IV SCH ×3 (10:30→23:21)
[2018-09-02] MEDS: DOCUSATE SODIUM 100 MG CAP PO SCH ×3 (10:33→20:15)
--- NOTE | 2018-09-02 10:36 | HP ---
Date/Time of Note Date/Time of Note DATE: 09/02/18 TIME: 10:24 Assessment/Plan VTE Prophylaxis SCD applied (from Nsg): Yes SCD contraindicated: low risk/ambulating Pharmacological prophylaxis: apixaban Lines/Catheters IV Catheter Type (from Nrsg): Peripheral IV Assessment/Plan Hospital Course Assessment and plan 1. Chronic low back pain. Patient reports difficulty with ambulation now. Will get PT/OT. Pain management physician to follow to help management with analgesic medication. 2. Suspect new metastatic disease. Oncologist to follow. Continue supportive care for now. 3. History of polycythemia vera. Resume patient's home medication. Resumed on apixaban. 4. History of CAD/CABG. Continue medical optimization. Follow-up CHD panel 5. History of essential hypertension. Will resume antihypertensives. Adjust as needed. 6. Suspect history of BPH. Resume on Flomax. 7. Constipation. Laxatives prn Discussed plan of care with Dr. Foster Result Diagram: 09/02/18 0720 09/02/18 0720 Results 24hrs Laboratory Tests Test 09/02/18 07:20 White Blood Count 16.4 #H Red Blood Count 4.16 L Hemoglobin 12.4 L Hematocrit 37.9 L Mean Corpuscular Volume 91.1 Mean Corpuscular Hemoglobin 29.8 Mean Corpuscular Hemoglobin Concent 32.7 Red Cell Distribution Width 17.0 H Platelet Count 326 Mean Platelet Volume 10.9 H Immature Granulocytes % 2.900 H Neutrophils % 81.3 H Lymphocytes % 7.6 L Monocytes % 3.9 Eosinophils % 3.1 Basophils % 1.2 Nucleated Red Blood Cells % 0.0 Immature Granulocytes # 0.480 H Neutrophils # 13.3 H Lymphocytes # 1.2 Monocytes # 0.6 Eosinophils # 0.5 Basophils # 0.2 H Nucleated Red Blood Cells # 0.0 Urine Color YELLOW Urine Clarity CLEAR Urine pH 5.0 Urine Specific [place] 1.008 Urine Ketones TRACE A Urine Nitrite NEGATIVE Urine Bilirubin NEGATIVE Urine Urobilinogen 1+ H Urine Leukocyte Esterase NEGATIVE Urine Hemoglobin NEGATIVE Urine Glucose NEGATIVE Urine Total Protein NEGATIVE Sodium Level 127 L Potassium Level 4.5 Chloride Level 94 L Carbon Dioxide Level 21 Anion Gap 12 Blood Urea Nitrogen 10 Creatinine 0.94 Est Glomerular Filtrat Rate mL/min > 60 Glucose Level 86 Calcium Level 8.8 Total Bilirubin 0.9 Direct Bilirubin 0.00 Indirect Bilirubin 0.9 Aspartate Amino Transf (AST/SGOT) 24 Alanine Aminotransferase (ALT/SGPT) 34 Alkaline Phosphatase 88 Total Protein 6.7 Albumin 4.1 Globulin 2.60 Albumin/Globulin Ratio 1.57 Acetaminophen Level 10.0 HPI/ROS Admit Date/Time Admit Date/Time Sep 02, 2018 at 07:56 Hx of Present Illness This is a 68-year-old male with history of portal vein thrombosis, polycythemia vera, CAD and CABG, myelodysplastic syndrome, low back pain which is chronic, hypertension, who came to [facility] due to reports of increased low back pain for 3 weeks. Patient reports that he has been having back pain which is chronic but for the past 3 weeks he has been having difficulty with ambulation due to increase in pain. He does take oxycodone at home which has not relieved him much. As result of taking his pain medication he also reports having some constipation. He denies any chest pain or shortness of breath or dysuria. Reports only symptoms he has a low back pain which has now compromised his walking. It is also reported that the patient is being work ed up for some type of malignancy. He stated he recently had pelvic imaging that showed lesions. His oncologist is Dr. Rai. On labs he was noted with some leukocytosis with white count of 16.4. He was afebrile. His sodium was 127. We will evaluate him for the aformentiond issues. ROS 12 point review of systems obtained and entirely negative except that mentioned in history of present illness PMH/Family/Social Past Medical History Medical/surgical history 1. Portal vein thrombosis 2. Polycythemia vera 3. CAD 4. CABG 5. History of myelodysplastic syndrome 6. Low back pain 7. hypertension Medications Current Medications Morphine Sulfate (morphine) 6 mg Q2 PRN IV Severe pain; Start 09/02/18 at 08:00 Allopurinol (Zyloprim) 100 mg TID PO ; Start 09/02/18 at 09:00 Apixaban (Eliquis) 5 mg BID PO ; Start 09/02/18 at 09:00 Dicyclomine HCl (Bentyl) 10 mg TID PRN PO DIARRHEA; Start 09/02/18 at 08:30 Docusate Sodium (Colace) 100 mg TID PO ; Start 09/02/18 at 09:00 Metoprolol Tartrate (Lopressor) 50 mg BID PO ; Start 09/02/18 at 09:00 Tamsulosin HCl (Flomax) 0.4 mg HS PO ; Start 09/02/18 at 21:00 Pantoprazole (Protonix Tab) 40 mg DAILY@06 PO ; Start 09/02/18 at 10:00 Miscellaneous Information 20 mg BID PO ; Start 09/02/18 at 09:00; Status UNV IV Flush (NS 3 ml) 3 ml PER PROTOCOL IV ; Start 09/02/18 at 08:30 Ondansetron HCl (Zofran Inj) 4 mg Q6H PRN IV NAUSEA/VOMITING; Start 09/02/18 at 08:30 Acetaminophen (Tylenol Tab) 650 mg Q6H PRN PO .PAIN 1-3 OR TEMP; Start 09/02/18 at 08:30 Acetaminophen (Tylenol Supp) 650 mg Q6H PRN [place] .PAIN 1-3 OR TEMP; Start 09/02/18 at 08:30 Acetaminophen/ Hydrocodone Bitart ([place] (5/325)) 1 tab Q6H PRN PO .MOD PAIN 4- 6; Start 09/02/18 at 08:30 Acetaminophen/ Hydrocodone Bitart ([place] (5/325)) 2 tab Q6H PRN PO .SEVERE PAIN 7-10; Start 09/02/18 at 08:30 Morphine Sulfate (morphine) 2 mg Q4H PRN IV .SEVERE PAIN 7-10; Start 09/02/18 at 08:30 Docusate Sodium (Colace) 100 mg Q12H PRN PO .CONSTIPATION; Start 09/02/18 at 08:30 Magnesium Hydroxide (Milk Of Mag) 30 ml DAILY PRN PO .CONSTIPATION; Start 09/02/18 at 08:30 Bisacodyl (Dulcolax Supp) 10 mg DAILY PRN [place] .CONSTIPATION; Start 09/02/18 at 08:30 Sodium Chloride 1,000 ml @ 75 mls/hr [id number] IV ; Start 09/02/18 at 08:30 Lactulose (Enulose) 20 gm Q6H PRN PO CONSTIPATION; Start 09/02/18 at 10:30; Status UNV Coded Allergies: No Known Allergy (Unverified , 08/06/18) Past Surgical History Past Surgical Hx: coronary bypass surgery Family History Significant Family History: no pertinent family hx Social History Alcohol Use: none Smoking Status: Former smoker Drug Use: none Exam/Review of Systems Vital Signs Vitals Vital Signs Date Temp Pulse Resp B/P (MAP) Pulse Ox O2 O2 Flow FiO2 Time Delivery Rate 09/02/18 98.3 65 14 105/57 94 Room Air 10:02 (73) Exam Constitutional: alert, oriented Head: normocephalic Neck: non-tender Respiratory: clear to auscultation, normal air movement Cardiovascular: regular rate and rhythm Gastrointestinal: soft, non-tender 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
[2018-09-02 14:49] VITALS: BP 123/73; PULSE 68; RESP 18
[2018-09-02] MEDS: HYDROCODONE/APAP (5/325) TAB PO PRN ×2 (16:56→23:30)
--- NOTE | 2018-09-02 18:53 | CONS ---
Assessment/Plan Assessment/Plan Assessment/Plan (Daily) 68 year old male with h/o PRV, now admitted with low back pain for three weeks and bone lesions which on CT have been characterized as both blastic and lytic. > Bone lesions, described on CT as both lytic and blastic depending on the report. The CT Chest and A/P do not reveal any primary malignancy. Will work up for myeloma and check PSA. Nuclear bone scan ordered. Its possible that these lesions are not metastatic and related to bone and bone marrow disease. > Low back pain. On Cardale and today very well controlled. He has less pain today overall. Consultation Date/Type/Reason Admit Date/Time Sep 02, 2018 at 07:56 Date of Consultation: Sep 02, 2018 Type of Consult Heme Onc Reason for Consultation PRV and lytic/blastic bone lesions Date/Time of Note DATE: 09/02/18 TIME: 18:45 Hx of Present Illness 68 yo male patient of Dr. Greenfield with PRV, increased counts, splenomegaly on Jakafi and well controlled reports three week onset of low back pain, pain causes him to have trouble walking. He's been worked up with CT A/P with showed splenomegaly and blastic appearing bone lesions. The CT spine again showed the bone lesions but referred to as lytic. The patient comes in for weakness as related to pain, reports poor appetite, not eating, not taking his meds at home including Jakafi and Eliquis. He admits to weight loss. No fever, chills. CT chest done here shows no lung mass. As per HPI. He reports severe pain day and night, with or without movement, but today suddenly pain is less. Report poor appetite, not eating. Reports constipation and no BM for several days prior to admission. Past Medical History PRV Low back pain Home Meds Active Scripts Naloxone HCl nasal spray (Narcan 4 mg/0.1 mL nasal) 4 Mg [place], 4 MG NS .Q2-3MIN for OPIOID OVERDOSE, #2 SPRAY 0 Refills [place] 0.1 mL into one nostril. Repeat with second device into other nostril after 2-3 minutes if no or minimal response Prov:HAFSA CHAVIS MD 08/24/18 Docusate Sodium* (Colace*) 100 Mg Capsule, 100 MG PO TID, #30 CAP Prov:HAFSA CHAVIS MD 08/24/18 Oxycodone HCl/Acetaminophen (Percocet 5-325 mg Tablet) 1 Each Tablet, 1 EACH PO Q6, #20 TAB Prov:HAFSA CHAVIS MD 08/24/18 Reported Medications Omeprazole* (Omeprazole*) 20 Mg Capsule.dr, 20 MG PO DAILY, #30 CAP 08/06/18 Apixaban* (Eliquis*) 5 Mg Tablet, 5 MG PO BID, TAB 08/06/18 Nitroglycerin* (Nitrostat*) 0.4 Mg Tab.subl, 0.4 MG SL Q5MIN PRN for CHEST PAIN, BOTTLE 08/06/18 Tamsulosin Hcl* (Flomax*) 0.4 Mg Cap.er.24h, 0.4 MG PO HS, CAP 08/06/18 Ruxolitinib Phosphate (Jakafi) 20 Mg Tablet, 20 MG PO BID, TAB 08/06/18 Metoprolol Tartrate* (Lopressor*) 50 Mg Tab, 50 MG PO BID, #60 TAB 08/06/18 Dicyclomine HCl (Dicyclomine HCl) 10 Mg Capsule, 10 MG PO TID PRN for DIARRHEA 08/06/18 Allopurinol* (Allopurinol*) 100 Mg Tablet, 100 MG PO TID, TAB 08/06/18 Medications Current Medications Morphine Sulfate (morphine) 6 mg Q2 PRN IV Severe pain; Start 09/02/18 at 08:00 Allopurinol (Zyloprim) 100 mg TID PO ; Start 09/02/18 at 09:00 Apixaban (Eliquis) 5 mg BID PO ; Start 09/02/18 at 09:00 Dicyclomine HCl (Bentyl) 10 mg TID PRN PO DIARRHEA; Start 09/02/18 at 08:30 Docusate Sodium (Colace) 100 mg TID PO Last administered on 09/02/18at 10:33; Admin Dose 100 MG; Start 09/02/18 at 09:00 Metoprolol Tartrate (Lopressor) 50 mg BID PO ; Start 09/02/18 at 09:00 Tamsulosin HCl (Flomax) 0.4 mg HS PO ; Start 09/02/18 at 21:00 Pantoprazole (Protonix Tab) 40 mg DAILY@06 PO ; Start 09/02/18 at 10:00 Miscellaneous Information 20 mg BID PO ; Start 09/02/18 at 09:00; Status UNV IV Flush (NS 3 ml) 3 ml PER PROTOCOL IV ; Start 09/02/18 at 08:30 Ondansetron HCl (Zofran Inj) 4 mg Q6H PRN IV NAUSEA/VOMITING; Start 09/02/18 at 08:30 Acetaminophen (Tylenol Tab) 650 mg Q6H PRN PO .PAIN 1-3 OR TEMP; Start 09/02/18 at 08:30 Acetaminophen (Tylenol Supp) 650 mg Q6H PRN [place] .PAIN 1-3 OR TEMP; Start 09/02/18 at 08:30 Acetaminophen/ Hydrocodone Bitart ([place] (5/325)) 1 tab Q6H PRN PO .MOD PAIN 4- 6 Last administered on 09/02/18at 16:56; Admin Dose 1 TAB; Start 09/02/18 at 08:30 Acetaminophen/ Hydrocodone Bitart ([place] (5/325)) 2 tab Q6H PRN PO .SEVERE PAIN 7-10; Start 09/02/18 at 08:30 Morphine Sulfate (morphine) 2 mg Q4H PRN IV .SEVERE PAIN 7-10; Start 09/02/18 at 08:30 Docusate Sodium (Colace) 100 mg Q12H PRN PO .CONSTIPATION; Start 09/02/18 at 08:30 Magnesium Hydroxide (Milk Of Mag) 30 ml DAILY PRN PO .CONSTIPATION; Start 09/02/18 at 08:30 Bisacodyl (Dulcolax Supp) 10 mg DAILY PRN [place] .CONSTIPATION; Start 09/02/18 at 08:30 Sodium Chloride 1,000 ml @ 75 mls/hr [id number] IV Last administered on 09/02/18at 10:30; Admin Dose 75 MLS/HR; Start 09/02/18 at 08:30 Lactulose (Enulose) 20 gm Q6H PRN PO CONSTIPATION Last administered on 09/02/18at 10:33; Admin Dose 20 GM; Start 09/02/18 at 10:30 Allergies: Coded Allergies: No Known Allergy (Unverified , 08/06/18) Past Surgical History Past Surgical Hx: coronary bypass surgery Social History Alcohol Use: none Smoking Status: Never smoker Drug Use: none Exam/Review of Systems Exam Vitals Vital Signs Date Temp Pulse Resp B/P (MAP) Pulse Ox O2 O2 Flow FiO2 Time Delivery Rate 09/02/18 98.4 68 18 123/73 95 Room Air 14:49 (90) Exam NAD, laying comfortable in bed. No palpable LAD. Heart - regular. Abd - soft, large spleen noted about 8 cm down. Ext - no edema. Neuro - Reflex diminished at knees, no clonus, strength is 5/5 in the lower extremities. Results Result Diagram: 09/02/18 0709/02/18 0720 Results 24hrs Laboratory Tests Test 09/02/18 07:20 White Blood Count 16.4 #H Red Blood Count 4.16 L Hemoglobin 12.4 L Hematocrit 37.9 L Mean Corpuscular Volume 91.1 Mean Corpuscular Hemoglobin 29.8 Mean Corpuscular Hemoglobin Concent 32.7 Red Cell Distribution Width 17.0 H Platelet Count 326 Mean Platelet Volume 10.9 H Immature Granulocytes % 2.900 H Neutrophils % 81.3 H Lymphocytes % 7.6 L Monocytes % 3.9 Eosinophils % 3.1 Basophils % 1.2 Nucleated Red Blood Cells % 0.0 Immature Granulocytes # 0.480 H Neutrophils # 13.3 H Lymphocytes # 1.2 Monocytes # 0.6 Eosinophils # 0.5 Basophils # 0.2 H Nucleated Red Blood Cells # 0.0 Urine Color YELLOW Urine Clarity CLEAR Urine pH 5.0 Urine Specific [place] 1.008 Urine Ketones TRACE A Urine Nitrite NEGATIVE Urine Bilirubin NEGATIVE Urine Urobilinogen 1+ H Urine Leukocyte Esterase NEGATIVE Urine Hemoglobin NEGATIVE Urine Glucose NEGATIVE Urine Total Protein NEGATIVE Sodium Level 127 L Potassium Level 4.5 Chloride Level 94 L Carbon Dioxide Level 21 Anion Gap 12 Blood Urea Nitrogen 10 Creatinine 0.94 Est Glomerular Filtrat Rate mL/min > 60 Glucose Level 86 Calcium Level 8.8 Total Bilirubin 0.9 Direct Bilirubin 0.00 Indirect Bilirubin 0.9 Aspartate Amino Transf (AST/SGOT) 24 Alanine Aminotransferase (ALT/SGPT) 34 Alkaline Phosphatase 88 Total Protein 6.7 Albumin 4.1 Globulin 2.60 Albumin/Globulin Ratio 1.57 Acetaminophen Level 10.0 Medications Medication Current Medications Morphine Sulfate (morphine) 6 mg Q2 PRN IV Severe pain; Start 09/02/18 at 08:00 Allopurinol (Zyloprim) 100 mg TID PO ; Start 09/02/18 at 09:00 Apixaban (Eliquis) 5 mg BID PO ; Start 09/02/18 at 09:00 Dicyclomine HCl (Bentyl) 10 mg TID PRN PO DIARRHEA; Start 09/02/18 at 08:30 Docusate Sodium (Colace) 100 mg TID PO Last administered on 09/02/18at 10:33; Admin Dose 100 MG; Start 09/02/18 at 09:00 Metoprolol Tartrate (Lopressor) 50 mg BID PO ; Start 09/02/18 at 09:00 Tamsulosin HCl (Flomax) 0.4 mg HS PO ; Start 09/02/18 at 21:00 Pantoprazole (Protonix Tab) 40 mg DAILY@06 PO ; Start 09/02/18 at 10:00 Miscellaneous Information 20 mg BID PO ; Start 09/02/18 at 09:00; Status UNV IV Flush (NS 3 ml) 3 ml PER PROTOCOL IV ; Start 09/02/18 at 08:30 Ondansetron HCl (Zofran Inj) 4 mg Q6H PRN IV NAUSEA/VOMITING; Start 09/02/18 at 08:30 Acetaminophen (Tylenol Tab) 650 mg Q6H PRN PO .PAIN 1-3 OR TEMP; Start 09/02/18 at 08:30 Acetaminophen (Tylenol Supp) 650 mg Q6H PRN [place] .PAIN 1-3 OR TEMP; Start 09/02/18 at 08:30 Acetaminophen/ Hydrocodone Bitart ([place] (5/325)) 1 tab Q6H PRN PO .MOD PAIN 4-6 Last administered on 09/02/18at 16:56; Admin Dose 1 TAB; Start 09/02/18 at 08:30 Acetaminophen/ Hydrocodone Bitart ([place] (5/325)) 2 tab Q6H PRN PO .SEVERE PAIN 7-10; Start 09/02/18 at 08:30 Morphine Sulfate (morphine) 2 mg Q4H PRN IV .SEVERE PAIN 7-10; Start 09/02/18 at 08:30 Docusate Sodium (Colace) 100 mg Q12H PRN PO .CONSTIPATION; Start 09/02/18 at 08:30 Magnesium Hydroxide (Milk Of Mag) 30 ml DAILY PRN PO .CONSTIPATION; Start 09/02/18 at 08:30 Bisacodyl (Dulcolax Supp) 10 mg DAILY PRN [place] .CONSTIPATION; Start 09/02/18 at 08:30 Sodium Chloride 1,000 ml @ 75 mls/hr [id number] IV Last administered on 09/02/18at 10:30; Admin Dose 75 MLS/HR; Start 09/02/18 at 08:30 Lactulose (Enulose) 20 gm Q6H PRN PO CONSTIPATION Last administered on 09/02/18at 10:33; Admin Dose 20 GM; Start 09/02/18 at 10:30 ETIENNE MARTINEZ MD Sep 02, 2018 18:53
[2018-09-02 19:33] VITALS: BP 115/68; PULSE 78; RESP 20
[2018-09-02] MEDS: TAMSULOSIN (SR) 0.4 MG CAP PO SCH (20:21)
[2018-09-02] MEDS: morphine 2 MG INJ IV PRN (21:31)
[2018-09-03 02:00] VITALS: BP 120/67; PULSE 71; RESP 18
[2018-09-03] MEDS: PANTOPRAZOLE (EC) 40 MG TAB PO SCH (05:33)
[2018-09-03 08:45] VITALS: BP 116/69; PULSE 73; RESP 18
[2018-09-03] MEDS: DOCUSATE SODIUM 100 MG CAP PO SCH ×3 (08:58→21:04)
[2018-09-03] MEDS: APIXABAN 5 MG TABLET PO SCH ×2 (08:58→21:04)
[2018-09-03] MEDS: HYDROCODONE/APAP (5/325) TAB PO PRN ×2 (08:58→09:47)
[2018-09-03] MEDS: METOPROLOL 50 MG TAB PO SCH ×2 (09:00→22:15)
[2018-09-03] MEDS: ALLOPURINOL 100 MG TAB PO SCH ×3 (09:00→22:16)
--- NOTE | 2018-09-03 10:00 | PN ---
Date/Time of Note Date/Time of Note DATE: 09/03/18 TIME: 09:56 Assessment/Plan VTE Prophylaxis Risk score (from Nsg)>0 risk: 5 SCD applied (from Nsg): Yes Pharmacological prophylaxis: apixaban Lines/Catheters IV Catheter Type (from Nrsg): Peripheral IV Urinary Cath still in place: No Assessment/Plan Hospital Course Assessment and plan 1. Chronic low back pain. - Patient reports difficulty with ambulation - Will get PT/OT - awaiting eval - Pain management physician to follow to help management with analgesic medication. 2. Suspect new metastatic disease. - Oncologist following - plan for bone scan - Continue supportive care for now. 3. History of polycythemia vera. - Resume patient's home medication. - Resumed on apixaban. - hem/onc following 4. History of CAD/CABG. - Continue medical optimization. - fish oil 5. History of essential hypertension. - continue antihypertensives. Adjust as needed. 6. Suspect history of BPH. - continue on Flomax. 7. Constipation. -Laxatives prn DISPO/PLAN: PT eval pending. f/u oncology recs. f/u bone scan results. Discussed plan of care with Dr. Foster Result Diagram: 09/03/18 0534 09/03/18 0513 Results 24hrs Laboratory Tests Test 09/02/18 19:31 09/03/18 05:13 09/03/18 05:34 Carcinoembryonic Antigen 2.2 CA 19-9 Antigen 26.2 Prostate Specific Antigen 0.7 Immunoglobulin G 558 L Immunoglobulin A 117 Immunoglobulin M 27 L Sodium Level 131 L Potassium Level 4.6 Chloride Level 99 Carbon Dioxide Level 23 Anion Gap 9 Blood Urea Nitrogen 8 Creatinine 0.79 Est Glomerular Filtrat Rate mL/min > 60 Glucose Level 73 Hemoglobin A1c 4.9 Calcium Level 8.6 Phosphorus Level 4.0 Magnesium Level 1.7 Total Bilirubin 0.7 Direct Bilirubin 0.00 Indirect Bilirubin 0.7 Aspartate Amino Transf (AST/SGOT) 21 Alanine Aminotransferase (ALT/SGPT) 28 Alkaline Phosphatase 78 Total Protein 5.6 #L Albumin 3.6 Globulin 2.00 Albumin/Globulin Ratio 1.80 Triglycerides Level 184 H Cholesterol Level 121 LDL Cholesterol, Calculated 64 HDL Cholesterol 20 L Cholesterol/HDL Ratio 6.0 Thyroid Stimulating Hormone (TSH) 1.760 Free Thyroxine Index 2.75 Thyroxine (T4) 7.4 Triiodothyronine (T3) Uptake 37.2 White Blood Count 12.9 #H Red Blood Count 3.82 L Hemoglobin 11.1 L Hematocrit 35.6 L Mean Corpuscular Volume 93.2 Mean Corpuscular Hemoglobin 29.1 Mean Corpuscular Hemoglobin Concent 31.2 L Red Cell Distribution Width 16.9 H Platelet Count 300 Mean Platelet Volume 12.1 H Immature Granulocytes % 2.300 H Neutrophils % 81.3 H Lymphocytes % 6.8 L Monocytes % 4.9 Eosinophils % 3.1 Basophils % 1.6 Nucleated Red Blood Cells % 0.0 Immature Granulocytes # 0.290 H Neutrophils # 10.5 H Lymphocytes # 0.9 Monocytes # 0.6 Eosinophils # 0.4 Basophils # 0.2 H Nucleated Red Blood Cells # 0.0 Subjective 24 Hr Interval Summary Free Text/Dictation still reports low back pain but less Exam/Review of Systems Exam Vitals Vital Signs Date Temp Pulse Resp B/P (MAP) Pulse Ox O2 O2 Flow FiO2 Time Delivery Rate 09/03/18 98.4 73 18 116/69 95 Room Air 08:45 (85) Intake and Output 09/02/18 09/02/18 09/03/18 1515:00 23:00 07:00 IntakeIntake Total 1300 ml 740 ml 1000 ml OutputOutput Total 350 ml 550 ml BalanceBalance 1300 ml 390 ml 450 ml Exam Constitutional: alert, oriented Head: normocephalic Neck: non-tender Respiratory: clear to auscultation, normal air movement Cardiovascular: regular rate and rhythm Gastrointestinal: soft, non-tender Neurological: CLINICAL PROGRAM CONSULTANT II-XII intact, nl mental status, nl speech Skin: nl turgor Results Results 24hrs Laboratory Tests Test 09/02/18 19:31 09/03/18 05:13 09/03/18 05:34 Carcinoembryonic Antigen 2.2 CA 19-9 Antigen 26.2 Prostate Specific Antigen 0.7 Immunoglobulin G 558 L Immunoglobulin A 117 Immunoglobulin M 27 L Sodium Level 131 L Potassium Level 4.6 Chloride Level 99 Carbon Dioxide Level 23 Anion Gap 9 Blood Urea Nitrogen 8 Creatinine 0.79 Est Glomerular Filtrat Rate mL/min > 60 Glucose Level 73 Hemoglobin A1c 4.9 Calcium Level 8.6 Phosphorus Level 4.0 Magnesium Level 1.7 Total Bilirubin 0.7 Direct Bilirubin 0.00 Indirect Bilirubin 0.7 Aspartate Amino Transf (AST/SGOT) 21 Alanine Aminotransferase (ALT/SGPT) 28 Alkaline Phosphatase 78 Total Protein 5.6 #L Albumin 3.6 Globulin 2.00 Albumin/Globulin Ratio 1.80 Triglycerides Level 184 H Cholesterol Level 121 LDL Cholesterol, Calculated 64 HDL Cholesterol 20 L Cholesterol/HDL Ratio 6.0 Thyroid Stimulating Hormone (TSH) 1.760 Free Thyroxine Index 2.75 Thyroxine (T4) 7.4 Triiodothyronine (T3) Uptake 37.2 White Blood Count 12.9 #H Red Blood Count 3.82 L Hemoglobin 11.1 L Hematocrit 35.6 L Mean Corpuscular Volume 93.2 Mean Corpuscular Hemoglobin 29.1 Mean Corpuscular Hemoglobin Concent 31.2 L Red Cell Distribution Width 16.9 H Platelet Count 300 Mean Platelet Volume 12.1 H Immature Granulocytes % 2.300 H Neutrophils % 81.3 H Lymphocytes % 6.8 L Monocytes % 4.9 Eosinophils % 3.1 Basophils % 1.6 Nucleated Red Blood Cells % 0.0 Immature Granulocytes # 0.290 H Neutrophils # 10.5 H Lymphocytes # 0.9 Monocytes # 0.6 Eosinophils # 0.4 Basophils # 0.2 H Nucleated Red Blood Cells # 0.0 Medications Medication Current Medications Morphine Sulfate (morphine) 6 mg Q2 PRN IV Severe pain; Start 09/02/18 at 08:00 Allopurinol (Zyloprim) 100 mg TID PO ; Start 09/02/18 at 09:00 Apixaban (Eliquis) 5 mg BID PO Last administered on 09/03/18at 08:58; Admin Dose 5 MG; Start 09/02/18 at 09:00 Dicyclomine HCl (Bentyl) 10 mg TID PRN PO DIARRHEA; Start 09/02/18 at 08:30 Docusate Sodium (Colace) 100 mg TID PO Last administered on 09/03/18at 08:58; Admin Dose 100 MG; Start 09/02/18 at 09:00 Metoprolol Tartrate (Lopressor) 50 mg BID PO ; Start 09/02/18 at 09:00 Tamsulosin HCl (Flomax) 0.4 mg HS PO ; Start 09/02/18 at 21:00 Pantoprazole (Protonix Tab) 40 mg DAILY@06 PO ; Start 09/02/18 at 10:00 Miscellaneous Information 20 mg BID XX ; Start 09/02/18 at 09:00; Status UNV IV Flush (NS 3 ml) 3 ml PER PROTOCOL IV ; Start 09/02/18 at 08:30 Ondansetron HCl (Zofran Inj) 4 mg Q6H PRN IV NAUSEA/VOMITING; Start 09/02/18 at 08:30 Acetaminophen (Tylenol Tab) 650 mg Q6H PRN PO .PAIN 1-3 OR TEMP; Start 09/02/18 at 08:30 Acetaminophen (Tylenol Supp) 650 mg Q6H PRN [place] .PAIN 1-3 OR TEMP; Start 09/02/18 at 08:30 Acetaminophen/ Hydrocodone Bitart ([place] (5/325)) 1 tab Q6H PRN PO .MOD PAIN 4- 6 Last administered on 09/03/18at 09:47; Admin Dose 1 TAB; Start 09/02/18 at 08:30 Acetaminophen/ Hydrocodone Bitart ([place] (5/325)) 2 tab Q6H PRN PO .SEVERE PAIN 7-10; Start 09/02/18 at 08:30 Morphine Sulfate (morphine) 2 mg Q4H PRN IV .SEVERE PAIN 7-10 Last administered on 09/02/18at 21:31; Admin Dose 2 MG; Start 09/02/18 at 08:30 Docusate Sodium (Colace) 100 mg Q12H PRN PO .CONSTIPATION; Start 09/02/18 at 08:30 Magnesium Hydroxide (Milk Of Mag) 30 ml DAILY PRN PO .CONSTIPATION; Start 09/02/18 at 08:30 Bisacodyl (Dulcolax Supp) 10 mg DAILY PRN [place] .CONSTIPATION; Start 09/02/18 at 08:30 Sodium Chloride 1,000 ml @ 75 mls/hr [id number] IV Last administered on 09/02/18at 23:21; Admin Dose 75 MLS/HR; Start 09/02/18 at 08:30 Lactulose (Enulose) 20 gm Q6H PRN PO CONSTIPATION Last administered on 09/02/18at 10:33; Admin Dose 20 GM; Start 09/02/18 at 10:30 Simethicone (Mylicon) 80 mg Q6H PRN PO DISTENSION/GAS/BLOATING Last administered on 09/02/18at 20:29; Admin Dose 80 MG; Start 09/02/18 at 20:24 Miscellaneous Information (*Order Clarification Bulletin) MEDICATION REQUIRES CLARIFICATION:KEVIN... Q8H XX ; Start 09/03/18 at 08:00 DAIVD CARD NP Sep 03, 2018 10:00
[2018-09-03] MEDS: morphine 2 MG INJ IV PRN ×2 (11:10→19:33)
[2018-09-03] MEDS: SOD CHLORIDE 0.9% 1,000 ML IV SCH (12:15)
[2018-09-03] MEDS ORDERED: HYDROmorphONE 1 MG/ML SYG ONE (13:30)
[2018-09-03] MEDS ORDERED: OXYCODONE/ACETAMINOPHEN (5/325) TAB PO PRN (13:30)
[2018-09-03] MEDS ORDERED: HYDROmorphONE 1 MG/ML SYG IV ONE (13:30)
[2018-09-03 14:31] VITALS: BP 114/59; PULSE 68; RESP 17
--- NOTE | 2018-09-03 17:31 | CONS ---
Assessment/Plan Assessment/Plan Assessment/Plan (Daily) 68 year old male with h/o PRV, now admitted with low back pain for three weeks and bone lesions which on CT have been characterized as both blastic and lytic. > Bone lesions, described on CT as both lytic and blastic depending on the report. The CT Chest and A/P do not reveal any primary malignancy. Markers are normal including CEA, PSA. Ig's are low and SPEP and free light chains pending for myeloma. Nuclear bone scan ordered and is pending. > PRV with splenomegaly. He is not taking his Jakafi, encouraged him to take it. There can be Jakafi withdrawal syndrome with cytokine storm if stopped abruptly. > Low back pain - for today resolved, but he c/o other pain. On [place] and today very well controlled. He has less pain today overall. Consultation Date/Type/Reason Admit Date/Time Sep 02, 2018 at 07:56 Initial Consult Date 09/02/18 Type of Consult Heme Onc Reason for Consultation PRV and bone lesions. Date/Time of Note DATE: 09/03/18 TIME: 17:28 24 HR Interval Summary Free Text/Dictation He still c/o on and off pain. Now the low pain in the back has resolved, but he has right scapular pain. Was able to walk, then has muscle aches. Exam/Review of Systems Exam Vitals Vital Signs Date Temp Pulse Resp B/P (MAP) Pulse Ox O2 O2 Flow FiO2 Time Delivery Rate 09/03/18 98.0 68 17 114/59 98 14:31 (77) 09/03/18 Room Air 08:45 Intake and Output 09/02/18 09/02/18 09/03/18 1515:00 23:00 07:00 IntakeIntake Total 1300 ml 740 ml 1000 ml OutputOutput Total 350 ml 550 ml BalanceBalance 1300 ml 390 ml 450 ml Exam NAD Thin man, VSS Clear bilaterally Abd soft, large spleen about 8 cm down. Ext no edema Non tender at spine. Results Result Diagram: 09/03/18 0534 09/03/18 0513 Results 24hrs Laboratory Tests Test 09/02/18 19:31 09/03/18 05:13 09/03/18 05:34 Carcinoembryonic Antigen 2.2 CA 19-9 Antigen 26.2 Prostate Specific Antigen 0.7 Immunoglobulin G 558 L Immunoglobulin A 117 Immunoglobulin M 27 L Sodium Level 131 L Potassium Level 4.6 Chloride Level 99 Carbon Dioxide Level 23 Anion Gap 9 Blood Urea Nitrogen 8 Creatinine 0.79 Est Glomerular Filtrat Rate mL/min > 60 Glucose Level 73 Hemoglobin A1c 4.9 Calcium Level 8.6 Phosphorus Level 4.0 Magnesium Level 1.7 Total Bilirubin 0.7 Direct Bilirubin 0.00 Indirect Bilirubin 0.7 Aspartate Amino Transf (AST/SGOT) 21 Alanine Aminotransferase (ALT/SGPT) 28 Alkaline Phosphatase 78 Total Protein 5.6 #L Albumin 3.6 Globulin 2.00 Albumin/Globulin Ratio 1.80 Triglycerides Level 184 H Cholesterol Level 121 LDL Cholesterol, Calculated 64 HDL Cholesterol 20 L Cholesterol/HDL Ratio 6.0 Thyroid Stimulating Hormone (TSH) 1.760 Free Thyroxine Index 2.75 Thyroxine (T4) 7.4 Triiodothyronine (T3) Uptake 37.2 White Blood Count 12.9 #H Red Blood Count 3.82 L Hemoglobin 11.1 L Hematocrit 35.6 L Mean Corpuscular Volume 93.2 Mean Corpuscular Hemoglobin 29.1 Mean Corpuscular Hemoglobin Concent 31.2 L Red Cell Distribution Width 16.9 H Platelet Count 300 Mean Platelet Volume 12.1 H Immature Granulocytes % 2.300 H Neutrophils % 81.3 H Lymphocytes % 6.8 L Monocytes % 4.9 Eosinophils % 3.1 Basophils % 1.6 Nucleated Red Blood Cells % 0.0 Immature Granulocytes # 0.290 H Neutrophils # 10.5 H Lymphocytes # 0.9 Monocytes # 0.6 Eosinophils # 0.4 Basophils # 0.2 H Nucleated Red Blood Cells # 0.0 Medications Medication Current Medications Allopurinol (Zyloprim) 100 mg TID PO ; Start 09/02/18 at 09:00 Apixaban (Eliquis) 5 mg BID PO Last administered on 09/03/18at 08:58; Admin Dose 5 MG; Start 09/02/18 at 09:00 Dicyclomine HCl (Bentyl) 10 mg TID PRN PO DIARRHEA; Start 09/02/18 at 08:30 Docusate Sodium (Colace) 100 mg TID PO Last administered on 09/03/18at 08:58; Admin Dose 100 MG; Start 09/02/18 at 09:00 Metoprolol Tartrate (Lopressor) 50 mg BID PO ; Start 09/02/18 at 09:00 Tamsulosin HCl (Flomax) 0.4 mg HS PO ; Start 09/02/18 at 21:00 Pantoprazole (Protonix Tab) 40 mg DAILY@06 PO ; Start 09/02/18 at 10:00 Miscellaneous Information 20 mg BID XX ; Start 09/02/18 at 09:00; Status UNV IV Flush (NS 3 ml) 3 ml PER PROTOCOL IV ; Start 09/02/18 at 08:30 Ondansetron HCl (Zofran Inj) 4 mg Q6H PRN IV NAUSEA/VOMITING; Start 09/02/18 at 08:30 Acetaminophen (Tylenol Tab) 650 mg Q6H PRN PO .PAIN 1-3 OR TEMP; Start 09/02/18 at 08:30 Acetaminophen (Tylenol Supp) 650 mg Q6H PRN [place] .PAIN 1-3 OR TEMP; Start 09/02/18 at 08:30 Morphine Sulfate (morphine) 2 mg Q4H PRN IV .SEVERE PAIN 7-10 Last administered on 09/03/18at 11:10; Admin Dose 2 MG; Start 09/02/18 at 08:30 Docusate Sodium (Colace) 100 mg Q12H PRN PO .CONSTIPATION; Start 09/02/18 at 08:30 Magnesium Hydroxide (Milk Of Mag) 30 ml DAILY PRN PO .CONSTIPATION; Start 09/02/18 at 08:30 Bisacodyl (Dulcolax Supp) 10 mg DAILY PRN [place] .CONSTIPATION; Start 09/02/18 at 08:30 Sodium Chloride 1,000 ml @ 75 mls/hr [id number] IV Last administered on 09/03/18at 12:15; Admin Dose 75 MLS/HR; Start 09/02/18 at 08:30 Lactulose (Enulose) 20 gm Q6H PRN PO CONSTIPATION Last administered on 09/02/18at 10:33; Admin Dose 20 GM; Start 09/02/18 at 10:30 Simethicone (Mylicon) 80 mg Q6H PRN PO DISTENSION/GAS/BLOATING Last administered on 09/02/18at 20:29; Admin Dose 80 MG; Start 09/02/18 at 20:24 Miscellaneous Information (*Order Clarification Bulletin) MEDICATION REQUIRES CLARIFICATION:KEVIN... Q8H XX ; Start 09/03/18 at 08:00 Fish Oil (Fish Oil) 1,000 mg BID PO ; Start 09/03/18 at 21:00 Oxycodone/ Acetaminophen (Percocet (5/ 325)) 1 tab Q4H PRN PO MODERATE PAIN LEVEL 4-6; Start 09/03/18 at 13:30 ETIENNE MARTINEZ MD Sep 03, 2018 17:31
[2018-09-03 20:00] VITALS: BP 114/64; PULSE 72; RESP 17
[2018-09-03] MEDS: FISH OIL 1,000 MG CAP PO SCH (21:04)
[2018-09-03] MEDS: TAMSULOSIN (SR) 0.4 MG CAP PO SCH (22:16)
[2018-09-04] MEDS: SOD CHLORIDE 0.9% 1,000 ML IV SCH (01:18)
[2018-09-04 02:00] VITALS: BP 113/64; PULSE 63; RESP 17
[2018-09-04] MEDS: PANTOPRAZOLE (EC) 40 MG TAB PO SCH (05:12)
[2018-09-04 08:00] VITALS: BP 128/68; PULSE 66; RESP 17
[2018-09-04] MEDS: morphine 2 MG INJ IV PRN (08:43)
[2018-09-04] MEDS: FISH OIL 1,000 MG CAP PO SCH ×2 (08:44→21:21)
[2018-09-04] MEDS: APIXABAN 5 MG TABLET PO SCH ×2 (08:45→21:20)
[2018-09-04] MEDS: METOPROLOL 50 MG TAB PO SCH ×2 (08:45→22:09)
[2018-09-04] MEDS: DOCUSATE SODIUM 100 MG CAP PO SCH ×3 (08:46→22:08)
[2018-09-04] MEDS: ALLOPURINOL 100 MG TAB PO SCH ×3 (08:46→22:08)
--- NOTE | 2018-09-04 11:03 | PN ---
Date/Time of Note Date/Time of Note DATE: 09/04/18 TIME: 11:03 Assessment/Plan VTE Prophylaxis Risk score (from Nsg)>0 risk: 4 SCD applied (from Nsg): Yes Pharmacological prophylaxis: apixaban Lines/Catheters IV Catheter Type (from Nrsg): Peripheral IV Urinary Cath still in place: No Assessment/Plan Hospital Course SUBJECTIVE: Lying in bed, awaiting for bone scan OBJECTIVE: Vital signs-see below PHYSICAL EXAM: Constitutional: Adequately built,not in acute distress. HEENT: Head atraumatic and normocephalic. Eyes: Extraocular muscles intact. Anicteric sclerae. Pupils equal bilaterally, reactive to light. NECK: Supple without lymph node. CHEST: Clear and good breath sounds equally. No wheezing. No rhonchi. HEART: S1, S2. Regular rate and rhythm. ABDOMEN: Soft/non tender with no rebound tenderness. Bowel sounds were present. EXTREMITIES: No cyanosis, clubbing or edema. NEUROLOGIC: Alert and oriented x3. No focal deficit. No sensory deficit. PSYCHOSOCIAL: No signs of depression. INTEGUMENTARY: No open wounds. ASSESSMENT AND PLAN:68 yo M with h/o polycythemia vera,CAD/CABG,htn,bph,admitted for 3 weeks duration of low back pain, found to have CT evidence of questionable blastic/Lydick bone lesions bone lesions... Bone lesions -CT read this as lytic/blastic lesions... -Being followed by oncology and plan is bone scan today. Polycythemia vera with splenomegaly -Continue home medications Chronic low back pain -PT eval -Pain management Essential hypertension -Stable -Continue antihypertensives BPH -On Flomax Constipation -PRN laxatives. -LBM 3 days ago, add senna Dyslipidemia -On fish oil supplementation. CAD/Hx CABD -cont.med management DVT prophylaxis: On lifelong anticoagulation W/ Eliquis Disposition: Patient is awaiting for bone scan today. We will follow-up oncology recommendations. Continue with physical therapy. If no further inpatient oncology work-up needed after bone scan, DC planning in a.m. with outpatient oncology follow-up. Patient was seen in collaboration w/ Result Diagram: 09/03/18 0534 09/03/18 0513 Exam/Review of Systems Exam Vitals Vital Signs Date Temp Pulse Resp B/P (MAP) Pulse Ox O2 O2 Flow FiO2 Time Delivery Rate 09/04/18 66 17 128/68 96 08:00 (88) 09/04/18 98.6 02:00 09/03/18 Room Air 08:45 Intake and Output 09/03/18 09/03/18 09/04/18 1515:00 23:00 07:00 IntakeIntake Total 800 ml 695 ml OutputOutput Total 1000 ml BalanceBalance -200 ml 695 ml Medications Medication Current Medications Allopurinol (Zyloprim) 100 mg TID PO Last administered on 09/04/18at 08:46; Admin Dose 100 MG; Start 09/02/18 at 09:00 Apixaban (Eliquis) 5 mg BID PO Last administered on 09/04/18at 08:45; Admin Dose 5 MG; Start 09/02/18 at 09:00 Dicyclomine HCl (Bentyl) 10 mg TID PRN PO DIARRHEA; Start 09/02/18 at 08:30 Docusate Sodium (Colace) 100 mg TID PO Last administered on 09/04/18at 08:46; Admin Dose 100 MG; Start 09/02/18 at 09:00 Metoprolol Tartrate (Lopressor) 50 mg BID PO Last administered on 09/04/18at 08:45; Admin Dose 50 MG; Start 09/02/18 at 09:00 Tamsulosin HCl (Flomax) 0.4 mg HS PO Last administered on 09/03/18at 22:16; Admin Dose 0.4 MG; Start 09/02/18 at 21:00 Pantoprazole (Protonix Tab) 40 mg DAILY@06 PO Last administered on 09/04/18at 05:12; Admin Dose 40 MG; Start 09/02/18 at 10:00 Miscellaneous Information 20 mg BID XX ; Start 09/02/18 at 09:00; Status UNV IV Flush (NS 3 ml) 3 ml PER PROTOCOL IV ; Start 09/02/18 at 08:30 Ondansetron HCl (Zofran Inj) 4 mg Q6H PRN IV NAUSEA/VOMITING; Start 09/02/18 at 08:30 Acetaminophen (Tylenol Tab) 650 mg Q6H PRN PO .PAIN 1-3 OR TEMP; Start 09/02/18 at 08:30 Acetaminophen (Tylenol Supp) 650 mg Q6H PRN [place] .PAIN 1-3 OR TEMP; Start 09/02/18 at 08:30 Morphine Sulfate (morphine) 2 mg Q4H PRN IV .SEVERE PAIN 7-10 Last administered on 09/04/18 08:43; Admin Dose 2 MG; Start 09/02/18 at 08:30 Docusate Sodium (Colace) 100 mg Q12H PRN PO .CONSTIPATION; Start 09/02/18 at 08:30 Magnesium Hydroxide (Milk Of Mag) 30 ml DAILY PRN PO .CONSTIPATION; Start 09/02/18 at 08:30 Bisacodyl (Dulcolax Supp) 10 mg DAILY PRN [place] .CONSTIPATION; Start 09/02/18 at 08:30 Sodium Chloride 1,000 ml @ 75 mls/hr [id number] IV Last administered on 09/04/18 01:18; Admin Dose 75 MLS/HR; Start 09/02/18 at 08:30 Lactulose (Enulose) 20 gm Q6H PRN PO CONSTIPATION Last administered on 09/02/18 10:33; Admin Dose 20 GM; Start 09/02/18 at 10:30 Simethicone (Mylicon) 80 mg Q6H PRN PO DISTENSION/GAS/BLOATING Last administered on 09/02/18 20:29; Admin Dose 80 MG; Start 09/02/18 at 20:24 Miscellaneous Information (*Order Clarification Bulletin) MEDICATION REQUIRES CLARIFICATION:KEVIN... Q8H XX ; Start 09/03/18 at 08:00 Fish Oil (Fish Oil) 1,000 mg BID PO Last administered on 09/04/18at 08:44; Admin Dose 1,000 MG; Start 09/03/18 at 21:00 Oxycodone/ Acetaminophen (Percocet (5/ 325)) 1 tab Q4H PRN PO MODERATE PAIN LEVEL 4-6 Last administered on 09/03/18 22:31; Admin Dose 1 TAB; Start 09/03/18 at 13:30 RUSS WORRELL NP Sep 04, 2018 11:03
[2018-09-04] MEDS ORDERED: HYDROCODONE/APAP (5/325) TAB PO PRN (11:30)
--- NOTE | 2018-09-04 19:43 | EN ---
Date/Time of Note Date/Time of Note DATE: 09/04/18 TIME: 19:39 Event Note Medicine Medicine Event Note Hematology note dictated: Nuclear medicine bone scan is negative and I feel that the findings on CT scan are not consistent with metastatic disease. At least 25% of pt with myelofibrosis have osteosclerotic changes which may be mistaken for metastatic disease. Pt has had excellent response to Jakafi and should resume RAMOS. Sudden with drawal may be dangerous. MD ERIN Olivo STANLEY H MD Sep 04, 2018 19:43
[2018-09-04 20:05] VITALS: BP 106/59; PULSE 60; RESP 18
--- NOTE | 2018-09-04 20:21 | PN ---
DATE: 09/04/2018 SUBJECTIVE: The patient still complains of bone pain but wishes to be discharged. It is unclear whe n the patient stopped taking his Jakafi at home. In the past, the patient has been very undependable regarding his medications. OBJECTIVE: GENERAL: The patient is a well-developed, thin male who is in no acute distress. VITAL SIGNS: Temperature 98.6, pulse 63 per minute and regular, respirations 17, blood pressure is 1 13/64, pulse oximetry 96%. SKIN: No ecchymosis. No petechiae or rashes. HEENT: Normocephalic. No evidence of trauma. The pupils are equal, round, reactive to light and ac commodation. Sclerae nonicteric. Oral mucosa is moist, without lesions. NECK: Supple. No jugular venous distention or thyroid enlargement. CHEST: Clear to auscultation and percussion. No rhonchi, wheezes, rales or rubs. There is a sterno gerald scar present. BREASTS: No gynecomastia. HEART: Regular sinus rhythm. No S3, S4 or murmurs. ABDOMEN: Flat and soft. There is marked splenomegaly. Spleen is palpable at least 8 cm below the l eft costal margin in the anterior axillary line. EXTREMITIES: No clubbing. No edema or cyanosis. No palpable cords or Homans sign. NEUROLOGIC: Normal. LABORATORY DATA: On 09/03, patient's white count was 12,900, hemoglobin 11.1, hematocrit 35.[address] atelet count 300,000. Also on 09/03, creatinine was 0.79, BUN 8, calcium 8.6, albumin 3.6, total sherie irubin 0.7, direct bilirubin 0, AST 31, ALT 28, alkaline phosphatase 78. Other studies include a CEA of 2.2, CA 19-9 of 26.2, and prostatic specific antigen 0.7. IMAGING STUDY: Bone scan done today demonstrates no definite focal bony abnormalities are seen. 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 DISCUSSION: I do not feel that the findings on patient's CT scan on admission are consistent with an y type of metastatic disease. Patients with myelofibrosis tend to have an osteosclerosis seen on sca ns. This can often be confused with metastatic carcinoma. The patient does not have an elevated alkaline phosphatase which one certainly would expect with this type of sclerotic or blastic disease. The patient's myeloproliferative neoplasm has been well controlled with the use of Jakafi. Unfortuna tely, it is unclear for long how he has not been taking it. I have encouraged him to resume his Jaka fi as soon as possible as there can be very serious consequences from sudden discontinuation of this medication. As noted, the patient continues to complain of back pain. I do not feel this is related to any under lying malignancy. MRI, however, may be informative as far as trying to further defining the etiology for this patient's pain. Dictated By: ROHITH KHAN MD SR/NTS Conf#: [id number] DID#: [id number] CC: OLIVER PHAN;*EndCC*
[2018-09-04] MEDS: SENNA TAB PO SCH (21:00)
[2018-09-04] MEDS: TAMSULOSIN (SR) 0.4 MG CAP PO SCH (21:20)
[2018-09-05 02:11] VITALS: BP 124/62; PULSE 50; RESP 18
[2018-09-05] MEDS: PANTOPRAZOLE (EC) 40 MG TAB PO SCH (05:40)
[2018-09-05 08:12] VITALS: BP 123/66; PULSE 54; RESP 18
[2018-09-05] MEDS: METOPROLOL 50 MG TAB PO SCH (09:00)
[2018-09-05] MEDS: ALLOPURINOL 100 MG TAB PO SCH ×2 (09:07→13:00)
[2018-09-05] MEDS: APIXABAN 5 MG TABLET PO SCH (09:07)
[2018-09-05] MEDS: DOCUSATE SODIUM 100 MG CAP PO SCH ×2 (09:07→13:00)
[2018-09-05] MEDS: FISH OIL 1,000 MG CAP PO SCH (09:07)
[2018-09-05] MEDS: SENNA TAB PO SCH (09:07)
--- NOTE | 2018-09-05 10:09 | PDOCDIS ---
Discharge Instructions CONDITION [id number] Patient Condition: [id number] Stable HOME CARE INSTRUCTIONS: [id number] Diet Instructions: [id number] Regular FOLLOW UP/APPOINTMENTS Follow-up Plan Follow-up with primary care physician in 1 week Follow-up with outpatient oncologist in 7 to 10 days, if you do not have an oncologist, you can follow-up with Dr. Biswas. Pawan Greenfield MD Specialty Hematology/Oncology Comments Office Address [id number] [facility], [address] [place] [id number] Office RUSS WORRELL NP Sep 05, 2018 10:09
[2018-09-05] MEDS ORDERED: SENN-120 PO (10:11)
[2018-09-05] MEDS ORDERED: OMEG100024 PO (10:11)
--- NOTE | 2018-09-05 10:18 | DS ---
Date/Time of Note Date/Time of Note DATE: 09/05/18 TIME: 10:16 Discharge Summary Admission/Discharge Info Admit Date/Time Sep 04, 2018 at 09:20 Discharge Date/Time Discharge Diagnosis Chronic low back pain Polycythemia vera with splenomegaly Myeloproliferate neoplasm Essential hypertension BPH Constipation Dyslipidemia CAD/Hx CABD Patient Condition: Stable Consults Procedures 09/04/2018: Bone scan IMPRESSION: No definite abnormal focal areas of increased tracer activity are seen in the skeleton. However, it should be noted that the sensitivity of the bone scan st udy for the detection of lytic bony lesions is reduced. If clinically indicated, consider further evaluation with CT guided bone biopsy. RPTAT: HH .Pam Shelton MD, Date Time Electronically viewed and signed by .Pam Shelton MD, MD on 09/04/2018 16:25 .L/ CC: ETIENNE MARTINEZ MD [phone] Hospital Course 68 yo M with h/o polycythemia vera,CAD/CABG,htn,bph,admitted for 3 weeks duration of low back pain, found to have CT evidence of questionable blastic/Lydick bone lesions bone lesions... Patient was also noted with constipation which was treated. He was being followed by oncologist. Patient was found with noncompliance in taking Jakafi for his underlying myeloproliferative neoplasm. Patient was counseled to resume taking this medicine as soon as possible as this can have serious side effects/complications from sudden discontinuation. Patient verbalized understan ding. Patient underwent bone scan which did not reveal any lesions as opposed to what was seen in the CT. Patient did well with physical therapy. Patient is very eager to be discharged home. He does not have any further back pain. According to the oncologist, there was no relationship with his chronic back pain and underlying malignancy. Patient was cleared for outpatient follow-up with emphasized on taking Jakafi. Home Meds Active Scripts [place]-3/Dha/Epa/Fish Oil (Fish Oil 1,000 mg Softgel) 1,000 Mg Capsule, 1000 MG PO BID, #60 CAP Prov:RUSS WORRELL V[employer] 09/05/18 Sennosides* (Senna Lax*) 8.6 Mg Tablet, 2 TAB PO BID, #60 TAB Prov:RUSS WORRELL [employer] 09/05/18 Naloxone HCl nasal spray (Narcan 4 mg/0.1 mL nasal) 4 Mg [place], 4 MG NS .Q2-3MIN for OPIOID OVERDOSE, #2 SPRAY 0 Refills [place] 0.1 mL into one nostril. Repeat with second device into other nostril after 2-3 minutes if no or minimal response Prov:HAFSA CHAVIS MD 08/24/18 Docusate Sodium* (Colace*) 100 Mg Capsule, 100 MG PO TID, #30 CAP Prov:HAFSA CHAVIS MD 08/24/18 Oxycodone HCl/Acetaminophen (Percocet 5-325 mg Tablet) 1 Each Tablet, 1 EACH PO Q6, #20 TAB Prov:HAFSA CHAVIS MD 08/24/18 Reported Medications Omeprazole* (Omeprazole*) 20 Mg Capsule.dr, 20 MG PO DAILY, #30 CAP 08/06/18 Apixaban* (Eliquis*) 5 Mg Tablet, 5 MG PO BID, TAB 08/06/18 Nitroglycerin* (Nitrostat*) 0.4 Mg Tab.subl, 0.4 MG SL Q5MIN PRN for CHEST PAIN, BOTTLE 08/06/18 Tamsulosin Hcl* (Flomax*) 0.4 Mg Cap.er.24h, 0.4 MG PO HS, CAP 08/06/18 Ruxolitinib Phosphate (Jakafi) 20 Mg Tablet, 20 MG PO BID, TAB 08/06/18 Metoprolol Tartrate* (Lopressor*) 50 Mg Tab, 50 MG PO BID, #60 TAB 08/06/18 Dicyclomine HCl (Dicyclomine HCl) 10 Mg Capsule, 10 MG PO TID PRN for DIARRHEA 08/06/18 Allopurinol* (Allopurinol*) 100 Mg Tablet, 100 MG PO TID, TAB 08/06/18 Follow-up Plan Follow-up with primary care physician in 1 week Follow-up with outpatient oncologist in 7 to 10 days, if you do not have an oncologist, you can follow-up with Dr. Biswas. Pawan Greenfield MD Specialty Hematology/Oncology Comments Office Address [id number] [facility], [address] [place] [address] Office Primary Care Provider Not On Staff Doctor RUSS WORRELL NP Sep 05, 2018 10:18
== END 2018-09-05 12:50 | disposition home or self-care (01) | DRG 552 ==
LOC: E/R 06:33 → PP2 07:56 → EDBEDREQ 08:50 → OBSVTOIN 09-04 09:20
PROVIDERS: ADMIT Hospitalist; ATTEND Hospitalist
DX: M54.5 Low back pain (principal); C94.6 Myelodysplastic disease, not elsewhere classified; D45 Polycythemia vera; R16.1 Splenomegaly, not elsewhere classified; I10 Essential (primary) hypertension; N40.0 Benign prostatic hyperplasia without lower urinary tract symptoms; K59.00 Constipation, unspecified; Z95.1 Presence of aortocoronary bypass graft; E78.5 Hyperlipidemia, unspecified; Z91.14 Patient's other noncompliance with medication regimen; C80.1 Malignant (primary) neoplasm, unspecified; M89.9 Disorder of bone, unspecified
CPT/HCPCS: 36415; 71250; 78306; 80053; 80061; 80307; 81003; 82378; 82570; 82784; 83036; 83735; 84100; 84153; 84154; 84155; 84156; 84165; 84166; 84436; 84443; 84479; 85025; 86301; 86320; 97161; 97167; 97168; A9503; G0378; J1170; J2270; J7030

== ENCOUNTER 2018-09-06 19:19 | Inpatient (IN) | payer MEDICARE, OTHER ==
[~2018-09-06] VITALS: Ht 170.2 cm; Wt 61.2 kg
[~2018-09-06 19:19] MED LIST changes: +OMEG100024 PO; +SENN-120 PO
[2018-09-06] MEDS ORDERED: HYDROmorphONE 1 MG/ML SYG IV STA (19:36)
[2018-09-06] MEDS ORDERED: ONDANSETRON 4 MG INJ IV STA (19:36)
--- NOTE | 2018-09-06 20:01 | ERD ---
ER Documentation Chief Complaint Chief Complaint RA; ABD PAIN HPI The patient is a 68-year-old male, presenting to the ER because of acute abdominal pain of unknown duration. He is unable to provide any history, the family has not arrived to the ER for many hours. The history is obtained from medical record Past medical history: BPH, hypertension, CAD, polycythemia vera, splenomegaly, myeloproliferative neoplasm, chronic low back pain, constipation Past surgical history: CABG Medications Home Meds Active Scripts [place]-3/Dha/Epa/Fish Oil (Fish Oil 1,000 mg Softgel) 1,000 Mg Capsule, 1000 MG PO BID, #60 CAP Prov:RUSS WORRELL V[facility] 09/05/18 Sennosides* (Senna Lax*) 8.6 Mg Tablet, 2 TAB PO BID, #60 TAB Prov:RUSS WORRELL V. ROLLER PNEUMATIC 09/05/18 Naloxone HCl nasal spray (Narcan 4 mg/0.1 mL nasal) 4 Mg Holstein, 4 MG NS .Q2-3MIN for OPIOID OVERDOSE, #2 SPRAY 0 Refills Holstein 0.1 mL into one nostril. Repeat with second device into other nostril after 2-3 minutes if no or minimal response Prov:HAFSA CHAVIS MD 08/24/18 Docusate Sodium* (Colace*) 100 Mg Capsule, 100 MG PO TID, #30 CAP Prov:HAFSA CHAVIS MD 08/24/18 Oxycodone HCl/Acetaminophen (Percocet 5-325 mg Tablet) 1 Each Tablet, 1 EACH PO Q6, #20 TAB Prov:HAFSA CHAVIS MD 08/24/18 Reported Medications Omeprazole* (Omeprazole*) 20 Mg Capsule.dr, 20 MG PO DAILY, #30 CAP 08/06/18 Apixaban* (Eliquis*) 5 Mg Tablet, 5 MG PO BID, TAB 08/06/18 Nitroglycerin* (Nitrostat*) 0.4 Mg Tab.subl, 0.4 MG SL Q5MIN PRN for CHEST PAIN, BOTTLE 08/06/18 Tamsulosin Hcl* (Flomax*) 0.4 Mg Cap.er.24h, 0.4 MG PO HS, CAP 08/06/18 Ruxolitinib Phosphate (Jakafi) 20 Mg Tablet, 20 MG PO BID, TAB 08/06/18 Metoprolol Tartrate* (Lopressor*) 50 Mg Tab, 50 MG PO BID, #60 TAB 08/06/18 Dicyclomine HCl (Dicyclomine HCl) 10 Mg Capsule, 10 MG PO TID PRN for DIARRHEA 08/06/18 Allopurinol* (Allopurinol*) 100 Mg Tablet, 100 MG PO TID, TAB 08/06/18 Allergies Allergies: Coded Allergies: No Known Allergy (Unverified , 08/06/18) PMhx/Soc History of Surgery: Yes (CABG 10 years ago, kidney stone 4 years ago) Anesthesia Reaction: No Hx Neurological Disorder: No Hx Respiratory Disorders: No Hx Cardiac Disorders: Yes Hx Psychiatric Problems: No Hx Miscellaneous Medical Probl: Yes (portal vein thrombosis, polycythemia vera, CAD with CABG, myelodysplastic s) Hx Alcohol Use: No Hx Substance Use: No Hx Tobacco Use: No Physical Exam Vitals Vital Signs Date Temp Pulse Resp B/P (MAP) Pulse Ox O2 O2 Flow FiO2 Time Delivery Rate 09/06/18 98 18 111/73 99 Nasal 23:21 (86) Cannula 09/06/18 105 17 116/77 98 Nasal 20:00 (90) Cannula 09/06/18 98.9 135 22 134/88 95 19:39 (103) Physical Exam Const: No acute distress. Head: Atraumatic. Eyes: Normal Conjunctiva. ENT: Normal External Ears, Nose and Mouth. Neck: Full range of motion. No meningismus. Resp: Clear to auscultation bilaterally. Cardio: Regular rate and rhythm. Abd: Soft, non distended, normal bowel sounds, vague and moderate abdominal tenderness, no rigidity/rebound/CVA tenderness Skin: No petechiae or rashes. Back: No midline or flank tenderness. Ext: No cyanosis, or edema. Neur: Unable to perform due to his condition Psych: Unable to perform due to his condition Result Diagram: 09/06/18193409/06/181934 Results 24 hrs Laboratory Tests Test 09/06/18 19:35 09/06/18 21:04 White Blood Count 21.5 10^3/ul Red Blood Count 4.17 10^6/ul Hemoglobin 12.2 g/dl Hematocrit 38.9 % Mean Corpuscular Volume 93.3 fl Mean Corpuscular Hemoglobin 29.3 pg Mean Corpuscular Hemoglobin Concent 31.4 g/dl Red Cell Distribution Width 17.2 % Platelet Count 722 10^3/UL Mean Platelet Volume 11.5 fl Immature Granulocytes % 4.200 % Neutrophils % % Segmented Neutrophils % (Manual) 78 % Band Neutrophils % (Manual) 4 % Lymphocytes % % Lymphocytes % (Manual) 4 % Reactive Lymphocytes % (Manual) 3 % Monocytes % % Monocytes % (Manual) 4 % Eosinophils % % Eosinophils % (Manual) 3 % Basophils % % Basophils % (Manual) 2 % Myelocytes % (Manual) 1 % Nucleated Red Blood Cells % 0.3 /100WBC Immature Granulocytes # 0.910 10^3/ul Neutrophils # 10^3/ul Neutrophils # (Manual) 16.9 10^3/ul Band Neutrophils # 0.8 10^3/ul Lymphocytes (Manual) 0.8 10^3/ul Lymphocytes # 10^3/ul Reactive Lymphocytes # 0.6 10^3/ul Monocytes # 10^3/ul Monocytes # (Manual) 0.8 10^3/ul Eosinophils # 10^3/ul Basophils # 10^3/ul Basophils # (Manual) 0.4 10^3/ul Myelocytes # 0.2 10^3/ul Nucleated Red Blood Cells # 10^3/ul Pathologist Review (Hematology) YES Giant Platelets 1 % Poikilocytosis 3+ Anisocytosis 1+ Microcytosis 1+ Tear Drop Cells 1+ Ovalocytes 2+ Schistocytes 1+ Sodium Level 129 mmol/L Potassium Level 3.7 mmol/L Chloride Level 93 mmol/L Carbon Dioxide Level 21 mmol/L Anion Gap 15 Blood Urea Nitrogen 8 mg/dl Creatinine 1.22 mg/dl Est Glomerular Filtrat Rate mL/min 59 mL/min Glucose Level 174 mg/dl Calcium Level 8.7 mg/dl Total Bilirubin 0.7 mg/dl Direct Bilirubin 0.00 mg/dl Indirect Bilirubin 0.7 mg/dl Aspartate Amino Transf (AST/SGOT) 88 IU/L Alanine Aminotransferase (ALT/SGPT) 70 IU/L Alkaline Phosphatase 91 IU/L Total Protein 6.3 g/dl Albumin 4.1 g/dl Globulin 2.20 g/dl Albumin/Globulin Ratio 1.86 Lipase 136 U/L Bedside Urine pH (LAB) 5.5 Bedside Urine Protein (LAB) 1+ Bedside Urine Glucose (UA) Negative Bedside Urine Ketones (LAB) Negative Bedside Urine Blood 2+ Bedside Urine Nitrite (LAB) Negative Bedside Urine Leukocyte Esterase (L Negative Current Medications Medications Dose Sig/Tamiko Start Time Status Last (Trade) Ordered Route PRN Stop Time Admin Dose Reason Admin 1 mg ONCE STAT 09/06/18 DC 09/06/18 Hydromorphone IV 19:36 19:40 HCl 09/06/18 19:37 (Dilaudid) Ondansetron 4 mg ONCE STAT 09/06/18 DC 09/06/18 HCl (Zofran IV 19:36 19:41 Inj) 09/06/18 19:38 Piperacillin 100 ml @ ONCE ONCE 09/06/18 DC 09/06/18 Sod/ 200 mls/hr IVPB 22:00 22:06 Tazobactam 09/06/18 22:29 Sod Allopurinol 100 mg TID PO 09/07/18 (Zyloprim) 09:00 Apixaban 5 mg BID PO 09/07/18 (Eliquis) 09:00 Dicyclomine 10 mg TID PRN 09/06/18 HCl PO DIARRHEA 23:30 (Bentyl) Docusate 100 mg TID PO 09/07/18 Sodium 09:00 (Colace) Metoprolol 50 mg BID PO 09/06/18 Tartrate 23:30 (Lopressor) 1 tab PRN PRN 09/06/18 Nitroglycerin SL CHEST 23:30 PAIN (Nitroglyceri n (Sl Tab) 0.4 Mg) Fish Oil 1,000 mg BID PO 09/07/18 (Fish Oil) 09:00 Oxycodone/ 1 tab Q6 PO 09/07/18 Acetaminophen 00:00 (Percocet (5/ 325)) Senna 2 tab BID PO 09/07/18 (Senokot) 09:00 Tamsulosin 0.4 mg HS PO 09/07/18 HCl 21:00 (Flomax) 4 mg Q2-3MIN NS 09/06/18 UNV Miscellaneous 23:30 Information 20 mg DAILY PO 09/07/18 DC Miscellaneous 09:00 Information 09/07/18 09:00 20 mg BID PO 09/07/18 UNV Miscellaneous 09:00 Information 40 mg DAILY@06 09/07/18 Pantoprazole PO 06:00 (Protonix Tab) Procedures/MDM [facility] [id number] [id number] Radiology Main Line: [phone] DIAGNOSTIC IMAGING REPORT Patient: MARIELOS ENGLISH : 1950 Age: 68 Sex: M MR #: [id number] DOS: 09/06/18 2144 Ordering MD: NATHALIA GALARZA MD Location: E/R Room/Bed: PROCEDURE: CT abdomen and pelvis without contrast. CLINICAL INDICATION: Abdominal Pain TECHNIQUE: CT scan of the abdomen and pelvis without oral contrast was performed and is reconstructed at 2.5 mm contiguous axial intervals from the dome of the diaphragm to the inferior pubic rami.. The patient was scanned without intravenous contrast. Sagittal and coronal reformatted images were obtained from the axial source images. The calculated radiation dose measures 329 mGy centimeters. The CTDI measures 5.4 mGy. Individualized dose optimization technique was used for the performance of this exam. This included 1. Automated exposure control. 2. Adjustment of the mA and / or kV according to the patient's size. 3. Use of iterative reconstructed technique. DICOM images are available. COMPARISON: CT abdomen pelvis August 24, 2018 FINDINGS: The lung bases are clear of any infiltrate or nodule. No effusion is seen. The liver is of normal size, contour and attenuation with no mass or ductal dilatation. No gallstones are visualized. No adrenal or pancreatic abnormalities present. spleen is enlarged measuring 15 cm in AP diameter. No focal splenic mass is visualized. Kidneys are of normal size and contour. No hydronephrosis or mass Is seen. There is a 2 mm nonobstructing stone in the mid to lower pole of the right kidney. Ureters are of normal course and caliber with no stone. No bladder mass or stone is present. prostate is enlarged. The capsule appears to be intact. There is no aneurysm. No adenopathy is present. No bowel mass or obstruction is present. The appendix is not visualized. No phlegmon, ascites or pneumoperitoneum is visualized. The osseous structures are intact. IMPRESSION: No evidence of obstructive uropathy or diverticulitis. 2 mm right renal calculus. Nonvisualization appendix. No evidence of appendicitis. Splenomegaly. Enlarged prostate - correlation with PSA is suggested. .Richard Stokes MD, MD Date Time Electronically viewed and signed by .Richard Stokes MD, MD on 09/06/2018 22:54 .A/ CC: NATHALIA GALARZA MD [id number] MEDICAL MAKING DECISION: The patient is a 68-year-old male, presenting with acute abdominal pain etiology with leukocytosis. He was treated with Dilaudid 1 mg IV for pain, Zofran formula IV for nausea and Zosyn IV empirically The differential diagnoses considered include but are not limited to cholelithiasis, cholecystitis, choledocholithiasis, cholangitis, pancreatitis, hepatitis, gastritis, peptic ulcer disease, gastric ulcer, appendicitis, cystitis, diverticulitis, partial small bowel obstruction. Departure Diagnosis: Primary Impression: Abdominal pain Additional Impression: Anemia Condition: Stable Comments I discussed the findings with the patient. I discussed the patient with Dr Bauman at 11:15 PM, who was made aware of the lab, the treatment, the patient condition. The patient is admitted to [facility] Disclaimer: Inadvertent spelling and grammatical errors are likely due to EHR/dictation software use and do not reflect on the overall quality of patient care. Also, please note that the electronic time recorded on this note does not necessarily reflect the actual time of the patient encounter. NATHALIA GALARZA MD Sep 06, 2018 20:01
[2018-09-06] MEDS ORDERED: PIPER-TAZO 3.375 GM IV (PMX) 100 ML IVPB ONE (22:00)
[2018-09-06] MEDS ORDERED: NON-FORMULARY/PATIENT OWN MED (Naloxone HCl nasal spray (Narcan 4 mg/0.1 mL nasal) 4 MG) NS SCH (23:30)
[2018-09-06] MEDS ORDERED: NITROGLYCERIN (SL) 0.4 MG TAB SL PRN (23:30)
[2018-09-06] MEDS ORDERED: DICYCLOMINE 10 MG CAP PO PRN (23:30)
[2018-09-07] VITALS (11 sets, daily range): BP systolic 103–128; BP diastolic 60–70; PULSE 61–100; RESP 18–20; Ht 170.2 cm; Wt 61.2 kg
[2018-09-07] MEDS ORDERED: HYDROmorphONE 1 MG/ML SYG IV PRN
[2018-09-07] MEDS ORDERED: ONDANSETRON 4 MG INJ IV ONE (00:30)
--- NOTE | 2018-09-07 01:19 | HP ---
Date/Time of Note Date/Time of Note DATE: 09/07/18 TIME: Assessment/Plan VTE Prophylaxis Pharmacological prophylaxis: apixaban Lines/Catheters IV [facility]from [facility]): [facility]ine [facility] Assessment/Plan Hospital Course This is a 68-year-old male being admitted to the [facility] floor for: #1 intractable abdominal pain: Etiology unclear, CT scan of the abdomen pelvis does not show any acute abnormalities. Will continue pain control. Diet as tolerated. Consider CT abdomen pelvis with contrast if pain persist. Consider GI consultation. #2 leukocytosis: Patient is currently afebrile. There at the current time possibly reactive, secondary to underlying myeloproliferative disorder. Unfortunately he did receive Zosyn in the emergency department prior to obtaining cultures. Nonetheless I will order blood cultures x2, urinalysis and urine culture. Chest x-ray does not show any acute ab normalities. CT the pelvis does not show any acute normality. Will monitor closely for any signs of fever and will await culture results. #3 myeloproliferative disorder: Continue Kristin, consult Dr. Greenfield #4 polycythemia vera: Continue Kristin, consult Dr. Greenfield #5 chronic low back pain: Continue pain management #6 Coronary disease: Continue home meds #7: BPH continue Flomax #8 hypertension: Continue metoprolol #9 DVT GI prophylaxis: Continue lifelong Eliquis, Protonix Further treatment strategy as per the clinical course Result Diagram: 09/06/18193409/06/181934 Results 24hrs Laboratory Tests Test 09/06/18 19:35 09/06/18 21:04 White Blood Count 21.5 #H Red Blood Count 4.17 L Hemoglobin 12.2 L Hematocrit 38.9 L Mean Corpuscular Volume 93.3 Mean Corpuscular Hemoglobin 29.3 Mean Corpuscular Hemoglobin Concent 31.4 L Red Cell Distribution Width 17.2 H Platelet Count 722 #H Mean Platelet Volume 11.5 H Immature Granulocytes % 4.200 H Neutrophils % Segmented Neutrophils % (Manual) 78 H Band Neutrophils % (Manual) 4 Lymphocytes % Lymphocytes % (Manual) 4 L Reactive Lymphocytes % (Manual) 3 H Monocytes % Monocytes % (Manual) 4 Eosinophils % Eosinophils % (Manual) 3 Basophils % Basophils % (Manual) 2 Myelocytes % (Manual) 1 H Nucleated Red Blood Cells % 0.3 H Immature Granulocytes # 0.910 H Neutrophils # Neutrophils # (Manual) 16.9 H Band Neutrophils # 0.8 H Lymphocytes (Manual) 0.8 Lymphocytes # Reactive Lymphocytes # 0.6 H Monocytes # Monocytes # (Manual) 0.8 Eosinophils # Basophils # Basophils # (Manual) 0.4 H Myelocytes # 0.2 H Nucleated Red Blood Cells # Pathologist Review (Hematology) YES Giant Platelets 1 H Poikilocytosis 3+ Anisocytosis 1+ Microcytosis 1+ Tear Drop Cells 1+ Ovalocytes 2+ Schistocytes 1+ Sodium Level 129 L Potassium Level 3.7 Chloride Level 93 L Carbon Dioxide Level 21 Anion Gap 15 H Blood Urea Nitrogen 8 Creatinine 1.22 Est Glomerular Filtrat Rate mL/min 59 L Glucose Level 174 Calcium Level 8.7 Total Bilirubin 0.7 Direct Bilirubin 0.00 Indirect Bilirubin 0.7 Aspartate Amino Transf (AST/SGOT) 88 H Alanine Aminotransferase (ALT/SGPT) 70 H Alkaline Phosphatase 91 C-Reactive Protein 0.6 Total Protein 6.3 Albumin 4.1 Globulin 2.20 Albumin/Globulin Ratio 1.86 Lipase 136 Bedside Urine pH (LAB) 5.5 Bedside Urine Protein (LAB) 1+ H Bedside Urine Glucose (UA) Negative Bedside Urine Ketones (LAB) Negative Bedside Urine Blood 2+ H Bedside Urine Nitrite (LAB) Negative Bedside Urine Leukocyte Esterase (L Negative HPI/ROS Admit Date/Time Admit Date/Time Hx of Present Illness cc: ab pain This is a 68-year-old male with a history of myeloproliferative disorder, polycythemia vera, coronary artery disease, hypertension, chronic lower back pain, constipation, BPH who presented to the emergency department complaining of abdominal pain. Patient was recently admitted and discharged was seen by oncology and recommended to continue his Jakafi treatment. Ports that the day he went home he felt fine, however and for the last 2 days he started expensing abdominal pain. Denies any nausea vomiting or diarrhea. Allergies: NKDA Medications: See MAY ROS Const: As per HPI Eyes : No pain discharge or redness or change in visual acuity ENT: No pain, sore throat, congestion, congestion, dysphagia or discharge Respiratory: No shortness of breath, cough, sputum, wheezing, or pleuritic pain Cardiovascular: No chest pain, palpitation, PND, or edema GI : As per HPI Genitourinary: No dysuria, hematuria, flank pain , discharge or CVA tenderness Musculoskeletal: No joint pain, back pain, neck pain, restricted range of motion in neck or joints Skin: No rash, bruising or hives Neuro: No headache, dizziness, syncope, seizure, focal weakness Endocrine: No polyuria, polydipsia, temperature intolerance Psych: No hallucination, depression, anxiety or suicidal ideation PMH/Family/Social Past Medical History Chronic low back pain Polycythemia vera with splenomegaly Myeloproliferate neoplasm Essential hypertension BPH Constipation Dyslipidemia CAD Medications Current Medications Allopurinol (Zyloprim) 100 mg TID PO ; Start 09/07/18 at 09:00 Apixaban (Eliquis) 5 mg BID PO ; Start 09/07/18 at 09:00 Dicyclomine HCl (Bentyl) 10 mg TID PRN PO DIARRHEA; Start 09/06/18 at 23:30 Docusate Sodium (Colace) 100 mg TID PO ; Start 09/07/18 at 09:00 Metoprolol Tartrate (Lopressor) 50 mg BID PO ; Start 09/06/18 at 23:30 Nitroglycerin (Nitroglycerin (Sl Tab) 0.4 Mg) 1 tab PRN PRN SL CHEST PAIN; Start 09/06/18 at 23:30 Fish Oil (Fish Oil) 1,000 mg BID PO ; Start 09/07/18 at 09:00 Oxycodone/ Acetaminophen (Percocet (5/ 325)) 1 tab Q6 PO ; Start 09/07/18 at 00:00 Senna (Senokot) 2 tab BID PO ; Start 09/07/18 at 09:00 Tamsulosin HCl (Flomax) 0.4 mg HS PO ; Start 09/07/18 at 21:00 Miscellaneous Information 4 mg Q2-3MIN NS ; Start 09/06/18 at 23:30; Status UNV Miscellaneous Information 20 mg BID PO ; Start 09/07/18 at 09:00; Status UNV Pantoprazole (Protonix Tab) 40 mg DAILY@06 PO ; Start 09/07/18 at 06:00 Sodium Chloride 1,000 ml @ 80 mls/hr [id number] IV ; Start 09/07/18 at 00:00; Stop 09/07/18 at 23:59 Hydromorphone HCl (Dilaudid) 1 mg Q4H PRN IV SEVERE PAIN LEVEL 7-10 Last administered on 09/07/18at 00:14; Admin Dose 1 MG; Start 09/07/18 at 00:00 Coded Allergies: No Known Allergy (Unverified , 09/07/18) Past Surgical History CABG Past Surgical Hx: coronary bypass surgery Family History Significant Family History: no pertinent family hx Social History Alcohol Use: none Smoking Status: Never smoker Drug Use: none Exam/Review of Systems Vital Signs Vitals Vital Signs Date Temp Pulse Resp B/P (MAP) Pulse Ox O2 O2 Flow FiO2 Time Delivery Rate 09/07/18 98 17 108/78 99 Nasal 01:05 (88) Cannula 09/06/18 98.9 19:39 Exam Exam General: Patient is currently lying in bed, he does report abdominal pain, HEENT: Atraumatic, normocephalic. The pupils are equal, round and reactive. Extraocular motor are intact, currently wearing 2 L nasal cannula Neck: Supple with full range of motion. No rigidity or meningismus Chest: Nontender Lungs: Clear to auscultation bilaterally no crackles rales or wheezing Heart: Normal S1-S2, Regular rhythm and rate. No murmur, S3, or S4 Abdomen: Soft , generalized tenderness to palpation,, nondistended , bowel sounds are present. No guarding no rebound tenderness , No masses or organo megaly. No costovertebral temporal angle mass Extremities: Normal to inspection, no edema no cyanosis Neurologic: Normal mental status, speech normal, cranial nerves II through XII are intact, motor and sensory are intact, Additional Comments PROCEDURE: One view chest radiograph. CLINICAL INDICATION: Cough TECHNIQUE: An AP view of the chest was obtained. COMPARISON: 06/07/2014 FINDINGS: Mediastinum: There is calcification of the wall of the thoracic aorta. Median sternotomy wires. Heart size: Normal Pulmonary vasculature: No visible engorgement. Lungs: Clear. Low lung volumes. Costophrenic sulci: Clear. Bony structures: Grossly unremarkable for age. IMPRESSION: 1. Atherosclerosis of the thoracic aorta. 2. Otherwise, radiographically unremarkable expiratory phase senescent chest. RPTAT:AAJJ Garyly Anton, Physician Date Time Electronically viewed and signed by Physician Amalia on 09/07/2018 00:15 GW/ CC: NATHALIA GALARZA MD [id number] PROCEDURE: CT abdomen and pelvis without contrast. CLINICAL INDICATION: Abdominal Pain TECHNIQUE: CT scan of the abdomen and pelvis without oral contrast was performed and is reconstructed at 2.5 mm contiguous axial intervals from the dome of the diaphragm to the inferior pubic rami.. The patient was scanned without intravenous contrast. Sagittal and coronal reformatted images were obtained from the axial source images. The calculated radiation dose measures 329 mGy centimeters. The CTDI measures 5.4 mGy. Individualized dose optimization technique was used for the performance of this exam. This included 1. Automated exposure control. 2. Adjustment of the mA and / or kV according to the patient's size. 3. Use of iterative reconstructed technique. DICOM images are available. COMPARISON: CT abdomen pelvis August 24, 2018 FINDINGS: The lung bases are clear of any infiltrate or nodule. No effusion is seen. The liver is of normal size, contour and attenuation with no mass or ductal dilatation. No gallstones are visualized. No adrenal or pancreatic abnormalities present. spleen is enlarged measuring 15 cm in AP diameter. No focal splenic mass is visualized. Kidneys are of normal size and contour. No hydronephrosis or mass Is seen. There is a 2 mm nonobstructing stone in the mid to lower pole of the right k idney. Ureters are of normal course and caliber with no stone. No bladder mass or stone is present. prostate is enlarged. The capsule appears to be intact. There is no aneurysm. No adenopathy is present. No bowel mass or obstruction is present. The appendix is not visualized. No phlegmon, ascites or pneumoperitoneum is visualized. The osseous structures are intact. IMPRESSION: No evidence of obstructive uropathy or diverticulitis. 2 mm right renal calculus. Nonvisualization appendix. No evidence of appendicitis. Splenomegaly. Enlarged prostate - correlation with PSA is suggested. .Richard Stokes MD, Date Time Electronically viewed and signed by .Richard Stokes MD, on 09/06/2018 22:54 .A/ CC: NATHALIA GALARZA MD [id number] ROB OS Sep 07, 2018 01:19
[2018-09-07] MEDS: METOPROLOL 50 MG TAB PO SCH ×4 (02:21→21:00)
[2018-09-07] MEDS: SOD CHLORIDE 0.9% 1,000 ML IV SCH ×3 (02:22→17:24)
[2018-09-07] MEDS: OXYCODONE/ACETAMINOPHEN (5/325) TAB PO SCH ×4 (06:00→18:00)
[2018-09-07] MEDS: PANTOPRAZOLE (EC) 40 MG TAB PO SCH (06:34)
[2018-09-07] MEDS: SENNA TAB PO SCH ×2 (09:00→20:53)
[2018-09-07] MEDS: ALLOPURINOL 100 MG TAB PO SCH ×4 (09:00→21:00)
[2018-09-07] MEDS ORDERED: HYDROCODONE/APAP (5/325) TAB PO PRN (09:00)
[2018-09-07] MEDS: DOCUSATE SODIUM 100 MG CAP PO SCH ×3 (09:00→20:53)
[2018-09-07] MEDS ORDERED: NON-FORMULARY/PATIENT OWN MED (Omeprazole* 20 MG) PO SCH (09:00)
[2018-09-07] MEDS ORDERED: RUXOLITINIB PHOSPHATE 20 MG PO SCH (09:00)
[2018-09-07] MEDS ORDERED: MAGNESIUM SULFATE 2 GM/50 ML 50 ML IVPB ONE (09:30)
[2018-09-07] MEDS: FISH OIL 1,000 MG CAP PO SCH ×2 (09:49→20:53)
[2018-09-07] MEDS: APIXABAN 5 MG TABLET PO SCH ×2 (09:49→20:53)
--- NOTE | 2018-09-07 11:01 | PN ---
Date/Time of Note Date/Time of Note DATE: 09/07/18 TIME: 10:58 Assessment/Plan VTE Prophylaxis Pharmacological prophylaxis: apixaban Lines/Catheters IV [facility] Type (from [facility]): Peripheral IV Urinary Cath still in place: No Assessment/Plan Hospital Course SUBJECTIVE: Patient complaining of epigastric/lower abdominal pain. OBJECTIVE: Vital signs-see below PHYSICAL EXAM: Constitutional: Adequately built,not in acute distress. HEENT: Head atraumatic and normocephalic. Eyes: Extraocular muscles intact. Anicteric sclerae. Pupils equal bilaterally, reactive to light. NECK: Supple without lymph node. CHEST: Clear and good breath sounds equally. No wheezing. No rhonchi. HEART: S1, S2. Regular rate and rhythm. ABDOMEN: Tenderness to epigastric/lower abdominal area.Soft with no rebound tenderness. Bowel sounds were present. EXTREMITIES: No cyanosis, clubbing or edema. NEUROLOGIC: Alert and oriented x3. No focal deficit. No sensory deficit. PSYCHOSOCIAL: No signs of depression. INTEGUMENTARY: No open wounds. ASSESSMENT AND PLAN:68 yo M with h/o polycythemia vera,CAD/CABG,htn,bph, chronic back pain, who was discharged from [facility] for back pain management, returns back with abdominal pain... Abdominal pain -Rule out etiologies -GI consult for consideration for EGD -Empiric PPI or H2 blockers -N.p.o. -stool OB,CEA Polycythemia vera with splenomegaly -Continue home medications Chronic low back pain -Pain management Essential hypertension -Stable -Continue antihypertensives BPH -On Flomax Chronic constipation -Continue stool softeners/laxatives Dyslipidemia -On fish oil supplementation. CAD/Hx CABD -cont.med management Anxiety disorders. -Patient also may have possible depressive disorders as such he would benefit from a [id number] psych evaluation. We will request that. DVT prophylaxis: On lifelong anticoagulation W/ [place] Disposition: We will up GI recommendations. Possible EGD per discretion of GI. Patient was seen in collaboration w/ Result Diagram: 09/07/18 0307 09/07/18 0307 Results 24hrs Laboratory Tests Test 09/06/18 19:35 09/06/18 21:04 09/07/18 03:07 White Blood Count 21.5 #H 15.9 #H Red Blood Count 4.17 L 3.96 L Hemoglobin 12.2 L 11.5 L Hematocrit 38.9 L 36.7 L Mean Corpuscular Volume 93.3 92.7 Mean Corpuscular Hemoglobin 29.3 29.0 Mean Corpuscular Hemoglobin Concent 31.4 L 31.3 L Red Cell Distribution Width 17.2 H 16.7 H Platelet Count 722 #H 427 #H Mean Platelet Volume 11.5 H 11.4 H Immature Granulocytes % 4.200 H 2.600 H Neutrophils % 83.8 H Segmented Neutrophils % (Manual) 78 H Band Neutrophils % (Manual) 4 Lymphocytes % 5.7 L Lymphocytes % (Manual) 4 L Reactive Lymphocytes % (Manual) 3 H Monocytes % 4.8 Monocytes % (Manual) 4 Eosinophils % 1.8 Eosinophils % (Manual) 3 Basophils % 1.3 Basophils % (Manual) 2 Myelocytes % (Manual) 1 H Nucleated Red Blood Cells % 0.3 H 0.1 H Immature Granulocytes # 0.910 H 0.420 H Neutrophils # 13.3 H Neutrophils # (Manual) 16.9 H Band Neutrophils # 0.8 H Lymphocytes (Manual) 0.8 Lymphocytes # 0.9 Reactive Lymphocytes # 0.6 H Monocytes # 0.8 Monocytes # (Manual) 0.8 Eosinophils # 0.3 Basophils # 0.2 H Basophils # (Manual) 0.4 H Myelocytes # 0.2 H Nucleated Red Blood Cells # 0.0 Pathologist Review (Hematology) YES Giant Platelets 1 H Poikilocytosis 3+ Anisocytosis 1+ Microcytosis 1+ Tear Drop Cells 1+ Ovalocytes 2+ Schistocytes 1+ Erythrocyte Sedimentation Rate 1 Sodium Level 129 L 128 L Potassium Level 3.7 4.3 Chloride Level 93 L 95 L Carbon Dioxide Level 21 22 Anion Gap 15 H 11 Blood Urea Nitrogen 8 9 Creatinine 1.22 1.01 Est Glomerular Filtrat Rate mL/min 59 L > 60 Glucose Level 174 100 # Calcium Level 8.7 8.7 Total Bilirubin 0.7 0.9 Direct Bilirubin 0.00 0.00 Indirect Bilirubin 0.7 0.9 Aspartate Amino Transf (AST/SGOT) 88 H 234 #H Alanine Aminotransferase (ALT/SGPT) 70 H 353 H Alkaline Phosphatase 91 76 C-Reactive Protein 0.6 Total Protein 6.3 5.8 L Albumin 4.1 3.7 Globulin 2.20 2.10 Albumin/Globulin Ratio 1.86 1.76 Lipase 136 Bedside Urine pH (LAB) 5.5 Bedside Urine Protein (LAB) 1+ H Bedside Urine Glucose (UA) Negative Bedside Urine Ketones (LAB) Negative Bedside Urine Blood 2+ H Bedside Urine Nitrite (LAB) Negative Bedside Urine Leukocyte Esterase (L Negative Magnesium Level 1.5 L Exam/Review of Systems Exam Vitals Vital Signs Date Temp Pulse Resp B/P (MAP) Pulse Ox O2 O2 Flow FiO2 Time Delivery Rate 09/07/18 98.0 61 19 128/68 100 Nasal 08:05 (88) Cannula 09/07/18 2.0 08:00 Intake and Output 09/06/18 09/06/18 09/07/18 1515:00 23:00 07:00 IntakeIntake Total 200 ml OutputOutput Total 400 ml BalanceBalance -200 ml Results Results 24hrs Laboratory Tests Test 09/06/18 19:35 09/06/18 21:04 09/07/18 03:07 White Blood Count 21.5 #H 15.9 #H Red Blood Count 4.17 L 3.96 L Hemoglobin 12.2 L 11.5 L Hematocrit 38.9 L 36.7 L Mean Corpuscular Volume 93.3 92.7 Mean Corpuscular Hemoglobin 29.3 29.0 Mean Corpuscular Hemoglobin Concent 31.4 L 31.3 L Red Cell Distribution Width 17.2 H 16.7 H Platelet Count 722 #H 427 #H Mean Platelet Volume 11.5 H 11.4 H Immature Granulocytes % 4.200 H 2.600 H Neutrophils % 83.8 H Segmented Neutrophils % (Manual) 78 H Band Neutrophils % (Manual) 4 Lymphocytes % 5.7 L Lymphocytes % (Manual) 4 L Reactive Lymphocytes % (Manual) 3 H Monocytes % 4.8 Monocytes % (Manual) 4 Eosinophils % 1.8 Eosinophils % (Manual) 3 Basophils % 1.3 Basophils % (Manual) 2 Myelocytes % (Manual) 1 H Nucleated Red Blood Cells % 0.3 H 0.1 H Immature Granulocytes # 0.910 H 0.420 H Neutrophils # 13.3 H Neutrophils # (Manual) 16.9 H Band Neutrophils # 0.8 H Lymphocytes (Manual) 0.8 Lymphocytes # 0.9 Reactive Lymphocytes # 0.6 H Monocytes # 0.8 Monocytes # (Manual) 0.8 Eosinophils # 0.3 Basophils # 0.2 H Basophils # (Manual) 0.4 H Myelocytes # 0.2 H Nucleated Red Blood Cells # 0.0 Pathologist Review (Hematology) YES Giant Platelets 1 H Poikilocytosis 3+ Anisocytosis 1+ Microcytosis 1+ Tear Drop Cells 1+ Ovalocytes 2+ Schistocytes 1+ Erythrocyte Sedimentation Rate 1 Sodium Level 129 L 128 L Potassium Level 3.7 4.3 Chloride Level 93 L 95 L Carbon Dioxide Level 21 22 Anion Gap 15 H 11 Blood Urea Nitrogen 8 9 Creatinine 1.22 1.01 Est Glomerular Filtrat Rate mL/min 59 L > 60 Glucose Level 174 100 # Calcium Level 8.7 8.7 Total Bilirubin 0.7 0.9 Direct Bilirubin 0.00 0.00 Indirect Bilirubin 0.7 0.9 Aspartate Amino Transf (AST/SGOT) 88 H 234 #H Alanine Aminotransferase (ALT/SGPT) 70 H 353 H Alkaline Phosphatase 91 76 C-Reactive Protein 0.6 Total Protein 6.3 5.8 L Albumin 4.1 3.7 Globulin 2.20 2.10 Albumin/Globulin Ratio 1.86 1.76 Lipase 136 Bedside Urine pH (LAB) 5.5 Bedside Urine Protein (LAB) 1+ H Bedside Urine Glucose (UA) Negative Bedside Urine Ketones (LAB) Negative Bedside Urine Blood 2+ H Bedside Urine Nitrite (LAB) Negative Bedside Urine Leukocyte Esterase (L Negative Magnesium Level 1.5 L Medications Medication Current Medications Allopurinol (Zyloprim) 100 mg TID PO ; Start 09/07/18 at 09:00 Apixaban (Eliquis) 5 mg BID PO Last administered on 09/07/18at 09:49; Admin Dose 5 MG; Start 09/07/18 at 09:00 Dicyclomine HCl (Bentyl) 10 mg TID PRN PO DIARRHEA; Start 09/06/18 at 23:30 Docusate Sodium (Colace) 100 mg TID PO ; Start 09/07/18 at 09:00 Metoprolol Tartrate (Lopressor) 50 mg BID PO Last administered on 09/07/18at 02:21; Admin Dose 50 MG; Start 09/06/18 at 23:30 Nitroglycerin (Nitroglycerin (Sl Tab) 0.4 Mg) 1 tab PRN PRN SL CHEST PAIN; Start 09/06/18 at 23:30 Fish Oil (Fish Oil) 1,000 mg BID PO Last administered on 09/07/18at 09:49; Admin Dose 1,000 MG; Start 09/07/18 at 09:00 Oxycodone/ Acetaminophen (Percocet (5/ 325)) 1 tab Q6 PO ; Start 09/07/18 at 00:00 Senna (Senokot) 2 tab BID PO ; Start 09/07/18 at 09:00 Tamsulosin HCl (Flomax) 0.4 mg HS PO ; Start 09/07/18 at 21:00 Miscellaneous Information 4 mg Q2-3MIN NS ; Start 09/06/18 at 23:30; Status UNV Miscellaneous Information 20 mg BID PO ; Start 09/07/18 at 09:00; Status UNV Pantoprazole (Protonix Tab) 40 mg DAILY@06 PO Last administered on 09/07/18at 06:34; Admin Dose 40 MG; Start 09/07/18 at 06:00 Sodium Chloride 1,000 ml @ 80 mls/hr [id number] IV Last administered on 09/07/18at 02:22; Admin Dose 80 MLS/HR; Start 09/07/18 at 00:00; Stop 09/07/18 at 23:59 Hydromorphone HCl (Dilaudid) 1 mg Q4H PRN IV SEVERE PAIN LEVEL 7-10 Last administered on 09/07/18at 00:14; Admin Dose 1 MG; Start 09/07/18 at 00:00 Magnesium Sulfate 50 ml @ 25 mls/hr ONCE ONCE IVPB Last administered on 09/07at 09:50; Admin Dose 25 MLS/HR; Start 09/07/18 at 09:30; Stop 09/07/18 at 11:29 RUSS WORRELL NP Sep 07, 2018 11:01
--- NOTE | 2018-09-07 11:35 | CONS ---
Assessment/Plan Assessment/Plan Hospital Course (Demo Recall) Summary Assessment and Plan: Assessment: Epigastric pain PUD vs Gastritis vs other Polycythemia vera with splenomegaly Elevated LFTS Leukocytosis HTN CAD with hx of CABG Chronic low back pain BPH Chronic constipation Dyslipidemia Plan: PPI therapy NPO EGD today Endoscopy - risks/benefits/alternatives/indications of procedure and sedation/anesthesia discussed with patient who states understanding and gives informed consent to proceed. Hepatitis panel Patient seen in collaboration with Dr. Shah CC: LULY SHAH MD ; Consultation Date/Type/Reason Admit Date/Time Date of Consultation: Sep 07, 2018 Type of Consult GI Reason for Consultation Epigastric pain Date/Time of Note DATE: 09/07/18 TIME: 11:28 Hx of Present Illness This is a 68-year-old male with past medical history of polycythemia vera, c oronary artery disease, hypertension, chronic low back pain, constipation, BPH who presented to the emergency department complaining of pain. Imaging was completed CT scan abdomen pelvis which showed no evidence of obstructive uropathy or diverticulitis. 2 mm right renal calculus. Nonvisualization appendix. No evidence of appendicitis. Splenomegaly. Enlarged prostate. Additionally labs were obtained with initial white blood cell count of 21.5 today WBCs have decreased to 15.9 hemoglobin is noted to be 11.5 today, platelet count of 427 and elevated LFTs with a hyponatremia of 128 today. At time evaluation patient complained of epigastric pain worse with palpation he denies NSAID use or overt signs of GI bleed i.e. melena, or hematochezia. Patient did complain of nausea and nonbloody vomiting yesterday which has since resolved. Discussed plan for EGD I reviewed risk/benefits of sedation and procedure patient verbalized understanding and is agreeable Review of Systems: [A 12 system, review was conducted and is negative except as noted in the HPI or here.] ENT: sore throat Past Medical History Home Meds Active Scripts [place]-3/Dha/Epa/Fish Oil (Fish Oil 1,000 mg Softgel) 1,000 Mg Capsule, 1000 MG PO BID, #60 CAP Prov:WORRELL,RUSS V. SHOOK MACHINE OPERATOR 09/05/18 Sennosides* (Senna Lax*) 8.6 Mg Tablet, 2 TAB PO BID, #60 TAB Prov:WORRELL,RUSS V. SHOOK MACHINE OPERATOR 09/05/18 Naloxone HCl nasal spray (Narcan 4 mg/0.1 mL nasal) 4 Mg [place], 4 MG NS .Q2-3MIN for OPIOID OVERDOSE, #2 SPRAY 0 Refills [place] 0.1 mL into one nostril. Repeat with second device into other nostril after 2-3 minutes if no or minimal response Prov:HAFSA CHAVIS MD 08/24/18 Docusate Sodium* (Colace*) 100 Mg Capsule, 100 MG PO TID, #30 CAP Prov:HAFSA CHAVIS MD 08/24/18 Oxycodone HCl/Acetaminophen (Percocet 5-325 mg Tablet) 1 Each Tablet, 1 EACH PO Q6, #20 TAB Prov:HAFSA CHAVIS MD 08/24/18 Reported Medications Omeprazole* (Omeprazole*) 20 Mg Capsule.dr, 20 MG PO DAILY, #30 CAP 08/06/18 Apixaban* (Eliquis*) 5 Mg Tablet, 5 MG PO BID, TAB 08/06/18 Nitroglycerin* (Nitrostat*) 0.4 Mg Tab.subl, 0.4 MG SL Q5MIN PRN for CHEST PAIN, BOTTLE 08/06/18 Tamsulosin Hcl* (Flomax*) 0.4 Mg Cap.er.24h, 0.4 MG PO HS, CAP 08/06/18 Ruxolitinib Phosphate (Jakafi) 20 Mg Tablet, 20 MG PO BID, TAB 08/06/18 Metoprolol Tartrate* (Lopressor*) 50 Mg Tab, 50 MG PO BID, #60 TAB 08/06/18 Dicyclomine HCl (Dicyclomine HCl) 10 Mg Capsule, 10 MG PO TID PRN for DIARRHEA 08/06/18 Allopurinol* (Allopurinol*) 100 Mg Tablet, 100 MG PO TID, TAB 08/06/18 Medications Current Medications Allopurinol (Zyloprim) 100 mg TID PO ; Start 09/07/18 at 09:00 Apixaban (Eliquis) 5 mg BID PO Last administered on 09/07/18at 09:49; Admin Dose 5 MG; Start 09/07/18 at 09:00 Dicyclomine HCl (Bentyl) 10 mg TID PRN PO DIARRHEA; Start 09/06/18 at 23:30 Docusate Sodium (Colace) 100 mg TID PO ; Start 09/07/18 at 09:00 Metoprolol Tartrate (Lopressor) 50 mg BID PO Last administered on 09/07/18at 02:21; Admin Dose 50 MG; Start 09/06/18 at 23:30 Nitroglycerin (Nitroglycerin (Sl Tab) 0.4 Mg) 1 tab PRN PRN SL CHEST PAIN; Start 09/06/18 at 23:30 Fish Oil (Fish Oil) 1,000 mg BID PO Last administered on 09/07/18at 09:49; Admin Dose 1,000 MG; Start 09/07/18 at 09:00 Oxycodone/ Acetaminophen (Percocet (5/ 325)) 1 tab Q6 PO ; Start 09/07/18 at 00:00 Senna (Senokot) 2 tab BID PO ; Start 09/07/18 at 09:00 Tamsulosin HCl (Flomax) 0.4 mg HS PO ; Start 09/07/18 at 21:00 Miscellaneous Information 4 mg Q2-3MIN NS ; Start 09/06/18 at 23:30; Status UNV Miscellaneous Information 20 mg BID PO ; Start 09/07/18 at 09:00; Status UNV Pantoprazole (Protonix Tab) 40 mg DAILY@06 PO Last administered on 09/07/18at 06:34; Admin Dose 40 MG; Start 09/07/18 at 06:00 Sodium Chloride 1,000 ml @ 80 mls/hr [id number] IV Last administered on 09/07/18at 02:22; Admin Dose 80 MLS/HR; Start 09/07/18 at 00:00; Stop 09/07/18 at 23:59 Hydromorphone HCl (Dilaudid) 1 mg Q4H PRN IV SEVERE PAIN LEVEL 7-10 Last administered on 09/07/18at 00:14; Admin Dose 1 MG; Start 09/07/18 at 00:00 Magnesium Sulfate 50 ml @ 25 mls/hr ONCE ONCE IVPB Last administered on 09/07/18at 09:50; Admin Dose 25 MLS/HR; Start 09/07/18 at 09:30; Stop 09/07/18 at 11:29 Allergies: Coded Allergies: No Known Allergy (Unverified , 09/07/18) Past Surgical History Past Surgical Hx: coronary bypass surgery Social History Alcohol Use: none Smoking Status: Former smoker Drug Use: none Exam/Review of Systems Exam Vitals Vital Signs Date Temp Pulse Resp B/P (MAP) Pulse Ox O2 O2 Flow FiO2 Time Delivery Rate 09/07/18 98.0 61 19 128/68 100 Nasal 08:05 (88) Cannula 09/07/18 2.0 08:00 Intake and Output 09/06/18 09/06/18 09/07/18 1515:00 23:00 07:00 IntakeIntake Total 200 ml OutputOutput Total 400 ml BalanceBalance -200 ml Exam PHYSICAL EXAMINATION: GENERAL: Thin, alert & oriented x 3, in no acute distress SKIN: No lesions HEAD: Normocephalic, atraumatic, no tenderness. EYES: Pupils equal reactive to light and accommodation, full extraocular movements, sclera clear, non-icteric, no discharge. EARS/NOSE AND THROAT: Ears normal, nose normal, oropharynx normal, oral membranes well hydrated without lesions. NECK: Supple, no masses, CHEST: Inspection within normal limits. CARDIOVASCULAR: Heart: Regular rate and rhythm RESPIRATORY: Lungs clear to auscultation GASTROINTESTINAL AND LIVER: Abdomen: Soft, epigastric and lower abd tenderness, non-distended, no hernias, no masses, no organomegaly, no ascites, no guarding, no rebound tenderness, normoactive bowel sounds. Rectal: Deferred. EXTREMITIES: No cyanosis, clubbing or edema. Results Result Diagram: 09/07/18 0307 09/07/18 0307 Results 24hrs Laboratory Tests Test 09/06/18 19:35 09/06/18 21:04 09/07/18 03:07 White Blood Count 21.5 #H 15.9 #H Red Blood Count 4.17 L 3.96 L Hemoglobin 12.2 L 11.5 L Hematocrit 38.9 L 36.7 L Mean Corpuscular Volume 93.3 92.7 Mean Corpuscular Hemoglobin 29.3 29.0 Mean Corpuscular Hemoglobin Concent 31.4 L 31.3 L Red Cell Distribution Width 17.2 H 16.7 H Platelet Count 722 #H 427 #H Mean Platelet Volume 11.5 H 11.4 H Immature Granulocytes % 4.200 H 2.600 H Neutrophils % 83.8 H Segmented Neutrophils % (Manual) 78 H Band Neutrophils % (Manual) 4 Lymphocytes % 5.7 L Lymphocytes % (Manual) 4 L Reactive Lymphocytes % (Manual) 3 H Monocytes % 4.8 Monocytes % (Manual) 4 Eosinophils % 1.8 Eosinophils % (Manual) 3 Basophils % 1.3 Basophils % (Manual) 2 Myelocytes % (Manual) 1 H Nucleated Red Blood Cells % 0.3 H 0.1 H Immature Granulocytes # 0.910 H 0.420 H Neutrophils # 13.3 H Neutrophils # (Manual) 16.9 H Band Neutrophils # 0.8 H Lymphocytes (Manual) 0.8 Lymphocytes # 0.9 Reactive Lymphocytes # 0.6 H Monocytes # 0.8 Monocytes # (Manual) 0.8 Eosinophils # 0.3 Basophils # 0.2 H Basophils # (Manual) 0.4 H Myelocytes # 0.2 H Nucleated Red Blood Cells # 0.0 Pathologist Review (Hematology) YES Giant Platelets 1 H Poikilocytosis 3+ Anisocytosis 1+ Microcytosis 1+ Tear Drop Cells 1+ Ovalocytes 2+ Schistocytes 1+ Erythrocyte Sedimentation Rate 1 Sodium Level 129 L 128 L Potassium Level 3.7 4.3 Chloride Level 93 L 95 L Carbon Dioxide Level 21 22 Anion Gap 15 H 11 Blood Urea Nitrogen 8 9 Creatinine 1.22 1.01 Est Glomerular Filtrat Rate mL/min 59 L > 60 Glucose Level 174 100 # Calcium Level 8.7 8.7 Total Bilirubin 0.7 0.9 Direct Bilirubin 0.00 0.00 Indirect Bilirubin 0.7 0.9 Aspartate Amino Transf (AST/SGOT) 88 H 234 #H Alanine Aminotransferase (ALT/SGPT) 70 H 353 H Alkaline Phosphatase 91 76 C-Reactive Protein 0.6 Total Protein 6.3 5.8 L Albumin 4.1 3.7 Globulin 2.20 2.10 Albumin/Globulin Ratio 1.86 1.76 Lipase 136 Bedside Urine pH (LAB) 5.5 Bedside Urine Protein (LAB) 1+ H Bedside Urine Glucose (UA) Negative Bedside Urine Ketones (LAB) Negative Bedside Urine Blood 2+ H Bedside Urine Nitrite (LAB) Negative Bedside Urine Leukocyte Esterase (L Negative Magnesium Level 1.5 L Medications Medication Current Medications Allopurinol (Zyloprim) 100 mg TID PO ; Start 09/07/18 at 09:00 Apixaban (Eliquis) 5 mg BID PO Last administered on 09/07/18 09:49; Admin Dose 5 MG; Start 09/07/18 at 09:00 Dicyclomine HCl (Bentyl) 10 mg TID PRN PO DIARRHEA; Start 09/06/18 at 23:30 Docusate Sodium (Colace) 100 mg TID PO ; Start 09/07/18 at 09:00 Metoprolol Tartrate (Lopressor) 50 mg BID PO Last administered on 09/07/18at 02:21; Admin Dose 50 MG; Start 09/06/18 at 23:30 Nitroglycerin (Nitroglycerin (Sl Tab) 0.4 Mg) 1 tab PRN PRN SL CHEST PAIN; Start 09/06/18 at 23:30 Fish Oil (Fish Oil) 1,000 mg BID PO Last administered on 09/07/18 09:49; Admin Dose 1,000 MG; Start 09/07/18 at 09:00 Oxycodone/ Acetaminophen (Percocet (5/ 325)) 1 tab Q6 PO ; Start 09/07/18 at 00:00 Senna (Senokot) 2 tab BID PO ; Start 09/07/18 at 09:00 Tamsulosin HCl (Flomax) 0.4 mg HS PO ; Start 09/07/18 at 21:00 Miscellaneous Information 4 mg Q2-3MIN NS ; Start 09/06/18 at 23:30; Status UNV Miscellaneous Information 20 mg BID PO ; Start 09/07/18 at 09:00; Status UNV Pantoprazole (Protonix Tab) 40 mg DAILY@06 PO Last administered on 09/07/18at 06:34; Admin Dose 40 MG; Start 09/07/18 at 06:00 Sodium Chloride 1,000 ml @ 80 mls/hr [id number] IV Last administered on 09/07/18at 02:22; Admin Dose 80 MLS/HR; Start 09/07/18 at 00:00; Stop 09/07/18 at 23:59 Hydromorphone HCl (Dilaudid) 1 mg Q4H PRN IV SEVERE PAIN LEVEL 7-10 Last administered on 09/07/18at 00:14; Admin Dose 1 MG; Start 09/07/18 at 00:00 Magnesium Sulfate 50 ml @ 25 mls/hr ONCE ONCE IVPB Last administered on 09/07/18at 09:50; Admin Dose 25 MLS/HR; Start 09/07/18 at 09:30; Stop 09/07/18 at 11:29 OBIE MACHUCA Sep 07, 2018 11:35
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
--- NOTE | 2018-09-07 19:48 | PREAC ---
Date/Time of Note Date/Time of Note DATE: 09/07/18 TIME: 19:47 Anesthesia Eval and Record Evaluation Time Pre-Procedure Interview DATE: 09/07/18 TIME: 19:47 Age 68 Sex male NPO: 8 hrs Preoperative diagnosis abdominal pain Planned procedure EGD Past Medical History Past Medical History: Includes Cardio: HTN, Dyslipidemia Musculoskeletal: Osteoarthritis Heme: Anemia Surgery & Anesthesia Issues No known issue Meds Anticoagulation: No Beta Joel within 24 hr: No Reason Beta Joel not given: Pt. not on B-Joel Active Scripts [place]-3/Dha/Epa/Fish Oil (Fish Oil 1,000 mg Softgel) 1,000 Mg Capsule, 1000 MG PO BID, #60 CAP Prov:WORRELLSHILPAA V. CONTOUR BAND SAW OPERATOR VERTICAL 09/05/18 Sennosides* (Senna Lax*) 8.6 Mg Tablet, 2 TAB PO BID, #60 TAB Prov:WORRELLSHILPAA V. CONTOUR BAND SAW OPERATOR V[employer]ICAL 09/05/18 Naloxone HCl nasal spray (Narcan 4 mg/0.1 mL nasal) 4 Mg [place], 4 MG NS .Q2-3MIN for OPIOID OVERDOSE, #2 SPRAY 0 Refills [place] 0.1 mL into one nostril. Repeat with second device into other nostril after 2-3 minutes if no or minimal response Prov:HAFSA CHAVIS MD 08/24/18 Docusate Sodium* (Colace*) 100 Mg Capsule, 100 MG PO TID, #30 CAP Prov:HAFSA CHAVIS MD 08/24/18 Oxycodone HCl/Acetaminophen (Percocet 5-325 mg Tablet) 1 Each Tablet, 1 EACH PO Q6, #20 TAB Prov:HAFSA CHAVIS MD 08/24/18 Reported Medications Omeprazole* (Omeprazole*) 20 Mg Capsule.dr, 20 MG PO DAILY, #30 CAP 08/06/18 Apixaban* (Eliquis*) 5 Mg Tablet, 5 MG PO BID, TAB 08/06/18 Nitroglycerin* (Nitrostat*) 0.4 Mg Tab.subl, 0.4 MG SL Q5MIN PRN for CHEST PAIN, BOTTLE 08/06/18 Tamsulosin Hcl* (Flomax*) 0.4 Mg Cap.er.24h, 0.4 MG PO HS, CAP 08/06/18 Ruxolitinib Phosphate (Jakafi) 20 Mg Tablet, 20 MG PO BID, TAB 08/06/18 Metoprolol Tartrate* (Lopressor*) 50 Mg Tab, 50 MG PO BID, #60 TAB 08/06/18 Dicyclomine HCl (Dicyclomine HCl) 10 Mg Capsule, 10 MG PO TID PRN for DIARRHEA 08/06/18 Allopurinol* (Allopurinol*) 100 Mg Tablet, 100 MG PO TID, TAB 08/06/18 Current Medications Allopurinol (Zyloprim) 100 mg TID PO Last administered on 09/07/18at 13:09; Admin Dose 100 MG; Start 09/07/18 at 09:00 Apixaban (Eliquis) 5 mg BID PO Last administered on 09/07/18at 09:49; Admin Dose 5 MG; Start 09/07/18 at 09:00 Dicyclomine HCl (Bentyl) 10 mg TID PRN PO DIARRHEA; Start 09/06/18 at 23:30 Docusate Sodium (Colace) 100 mg TID PO Last administered on 09/07/18at 13:09; Admin Dose 100 MG; Start 09/07/18 at 09:00 Metoprolol Tartrate (Lopressor) 50 mg BID PO Last administered on 09/07/18at 02:21; Admin Dose 50 MG; Start 09/06/18 at 23:30 Nitroglycerin (Nitroglycerin (Sl Tab) 0.4 Mg) 1 tab PRN PRN SL CHEST PAIN; Start 09/06/18 at 23:30 Fish Oil (Fish Oil) 1,000 mg BID PO Last administered on 09/07/18at 09:49; Admin Dose 1,000 MG; Start 09/07/18 at 09:00 Oxycodone/ Acetaminophen (Percocet (5/ 325)) 1 tab Q6 PO ; Start 09/07/18 at 00:00 Senna (Senokot) 2 tab BID PO ; Start 09/07/18 at 09:00 Tamsulosin HCl (Flomax) 0.4 mg HS PO ; Start 09/07/18 at 21:00 Miscellaneous Information 4 mg Q2-3MIN NS ; Start 09/06/18 at 23:30; Status UNV Miscellaneous Information 20 mg BID PO ; Start 09/07/18 at 09:00; Status UNV Pantoprazole (Protonix Tab) 40 mg DAILY@06 PO Last administered on 09/07/18at 06:34; Admin Dose 40 MG; Start 09/07/18 at 06:00 Sodium Chloride 1,000 ml @ 80 mls/hr [id number] IV Last administered on 09/07/18at 17:24; Admin Dose 80 MLS/HR; Start 09/07/18 at 00:00; Stop 09/07/18 at 23:59 Hydromorphone HCl (Dilaudid) 1 mg Q4H PRN IV SEVERE PAIN LEVEL 7-10 Last a dministered on 09/07/18at 00:14; Admin Dose 1 MG; Start 09/07/18 at 00:00 Meds reviewed: Yes Allergies Coded Allergies: No Known Allergy (Unverified , 09/07/18) Allergies Reviewed: Yes Labs/Studies Labs Reviewed: Reviewed by anesthesiologist Result Diagram: 09/07/18 0307 09/07/18 0307 Laboratory Tests 09/07/18 03:07 test: N/A Studies: ECG Pre-procedure Exam Last vitals Vital Signs Date Temp Pulse Resp B/P (MAP) Pulse Ox O2 O2 Flow FiO2 Time Delivery Rate 09/07/18 97.9 65 19 128/69 96 Nasal 14:00 (88) Cannula 09/07/18 2.0 08:00 Airway: Adequate mouth opening, Adequate thyromental dist Mallampati: Mallampati II Teeth: Abnormal Lung: Normal Heart: Normal ASA Physical Status ASA physical status: 3 Emergency: None Planned Anesthetic General/MAC: MAC Pre-operative Attestations Prior to commencing anesthesia and surgery, the patient was re-evaluated, there was verification of: *The patient's identity *The results of appropriate recent lab work and preoperative vital signs *The above evaluation not changing prior to induction *Anesthetic plan, risk benefits, alternative and complications discussed with patient/family; questions answered; patient/family understands, accepts and wishes to proceed. BELLO GARCIA Sep 07, 2018 19:48
[2018-09-07] MEDS ORDERED: PROPOFOL 20 ML ONE (19:50)
[2018-09-07] MEDS: TAMSULOSIN (SR) 0.4 MG CAP PO SCH ×2 (20:53→21:00)
[2018-09-07] MEDS: SUCRALFATE (100 MG/ML) 10ML CUP PO SCH (21:58)
[2018-09-08] MEDS ORDERED: ONDANSETRON 4 MG INJ IV PRN
[2018-09-08 02:00] VITALS: BP 108/56; PULSE 74; RESP 18
[2018-09-08] MEDS: PANTOPRAZOLE (EC) 40 MG TAB PO SCH (04:59)
[2018-09-08] MEDS: OXYCODONE/ACETAMINOPHEN (5/325) TAB PO SCH ×3 (05:01→11:03)
[2018-09-08 08:06] VITALS: BP 114/73; PULSE 76; RESP 17
[2018-09-08] MEDS: FISH OIL 1,000 MG CAP PO SCH (08:53)
[2018-09-08] MEDS: DOCUSATE SODIUM 100 MG CAP PO SCH (08:53)
[2018-09-08] MEDS: SENNA TAB PO SCH (08:53)
[2018-09-08] MEDS: APIXABAN 5 MG TABLET PO SCH (08:53)
[2018-09-08] MEDS: SUCRALFATE (100 MG/ML) 10ML CUP PO SCH (08:54)
[2018-09-08] MEDS: METOPROLOL 50 MG TAB PO SCH (08:57)
[2018-09-08] MEDS: ALLOPURINOL 100 MG TAB PO SCH (08:57)
--- NOTE | 2018-09-08 10:00 | PDOCDIS ---
Discharge Instructions CONDITION [id number] Patient Condition: [id number] Stable HOME CARE INSTRUCTIONS: [id number] Diet Instructions: [id number] Regular FOLLOW UP/APPOINTMENTS Follow-up Plan Follow-up with for EGD biopsy result.You can call his office for that information Edna Shah MD Specialty Gastroenterology Comments Office Address [address] [facility] [place] [address] Office Follow-up with primary care physician in 1 week RUSS WORRELL NP Sep 08, 2018 09:59
[2018-09-08] MEDS ORDERED: CARAS PO (10:03)
[2018-09-08] MEDS ORDERED: PANT40TA3 PO (10:03)
--- NOTE | 2018-09-08 10:11 | DS ---
Date/Time of Note Date/Time of Note DATE: 09/08/18 TIME: 10:08 Discharge Summary Admission/Discharge Info Admit Date/Time Sep 06, 2018 at 23:18 Discharge Date/Time Discharge Diagnosis Acute on chronic abdominal pain likely secondary to gastritis Polycythemia vera with splenomegaly Chronic low back pain Essential hypertension BPH Chronic constipation Dyslipidemia CAD/Hx CABD Major depressive disorders. Patient Condition: Stable Consults Procedures 09/07/2018: EGD Impression: Moderate distal esophagitis Moderate gastritis, rule out H. pylori infection Otherwise normal EGD 09/06/2018: CT abdomen and pelvis without contrast: IMPRESSION: No evidence of obstructive uropathy or diverticulitis. 2 mm right renal calculus. Nonvisualization appendix. No evidence of appendicitis. Splenomegaly. Enlarged prostate - correlation with PSA is suggested. Hospital Course 68 yo M with h/o polycythemia vera,CAD/CABG,htn,bph, chronic back pain, who was discharged from [facility] for back pain management, returned back the next day with abdominal pain again... Patient CT was unremarkable. His pain was exacerbated by eating. He did not have any N/V, diarrhea, fever, chills or other symptoms. This time, patient also appeared depressed. He denied suicidal ideation but reports being worthless. He was feeling fine on day of discharge but thought his abdominal pain came back the next day and he decided to come to the emergency room. At this time, we also had gastroenterology evaluated the patient and patient underwent EGD which showed gastritis other than that stable EGD. This could be the culprit of acute on chronic abdominal pain. The started patient on Protonix and Carafate for the above. She was continued on home medication for underlying comorbidities. Patient also reports being worthless however, denied suicidal ideation. Patient was evaluated by psychiatric nurse practitioner. Recommended medication for major depressive disorders for which patient was not receptive. He declined medications. His labs and vital signs remained stable at baseline. Please note that patient with a history of polycythemia vera with splenomegaly and his white count has been always high with thrombocytosis. Patient with no evidence of infection. . At this time, patient reports that no further abdominal pain. He is very happy. He is also tolerating diet and activities. He is requesting discharge today. To follow-up with outpatient doctors. 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 Patient verbalized understanding. Approximately 60-minute was spent on coordinating the discharge on this patient. Patient was seen in collaboration with Dr. Ramirez [facility] [place] Active Scripts [place]-3/Dha/Epa/Fish Oil (Fish Oil 1,000 mg Softgel) 1,000 Mg Capsule, 1000 MG PO BID, #60 CAP Prov:WORRELLRUSS VGodfrey SALES REPRESENTATIVE PRINTING 09/05/18 Sennosides* (Senna Lax*) 8.6 Mg Tablet, 2 TAB PO BID, #60 TAB Prov:WORRELLBHASKARRUSS V. SALES REPRESENTATIVE PRINTING 09/05/18 Naloxone HCl nasal spray (Narcan 4 mg/0.1 mL nasal) 4 Mg [place], 4 MG NS .Q2-3MIN for OPIOID OVERDOSE, #2 SPRAY 0 Refills [place] 0.1 mL into one nostril. Repeat with second device into other nostril after 2-3 minutes if no or minimal response Prov:HAFSA CHAVIS MD 08/24/18 Docusate Sodium* (Colace*) 100 Mg Capsule, 100 MG PO TID, #30 CAP Prov:HAFSA CHAVIS MD 08/24/18 Oxycodone HCl/Acetaminophen (Percocet 5-325 mg Tablet) 1 Each Tablet, 1 EACH PO Q6, #20 TAB Prov:HAFSA CHAVIS MD 08/24/18 Reported Medications Omeprazole* (Omeprazole*) 20 Mg Capsule.dr, 20 MG PO DAILY, #30 CAP 08/06/18 Apixaban* (Eliquis*) 5 Mg Tablet, 5 MG PO BID, TAB 08/06/18 Nitroglycerin* (Nitrostat*) 0.4 Mg Tab.subl, 0.4 MG SL Q5MIN PRN for CHEST PAIN, BOTTLE 08/06/18 Tamsulosin Hcl* (Flomax*) 0.4 Mg Cap.er.24h, 0.4 MG PO HS, CAP 08/06/18 Ruxolitinib Phosphate (Jakafi) 20 Mg Tablet, 20 MG PO BID, TAB 08/06/18 Metoprolol Tartrate* (Lopressor*) 50 Mg Tab, 50 MG PO BID, #60 TAB 08/06/18 Dicyclomine HCl (Dicyclomine HCl) 10 Mg Capsule, 10 MG PO TID PRN for DIARRHEA 08/06/18 Allopurinol* (Allopurinol*) 100 Mg Tablet, 100 MG PO TID, TAB 08/06/18 Follow-up Plan Follow-up with for EGD biopsy result.You can call his office for that information Edna Shah MD Specialty Gastroenterology Comments Office Address [address] [facility] [address] [place] [address] Office Follow-up with primary care physician in 1 week Primary Care Provider Not On Staff Doctor Pending Labs Laboratory Tests Test 09/07/18 12:01 09/08/18 04:31 Lab Scanned Report REFERENCE LAB [id number] White Blood Count 21.1 10^3/ul (4.8-10.8) Red Blood Count 3.99 10^6/ul (4.70-6.10) Hemoglobin 11.6 g/dl (14.0-18.0) Hematocrit 36.8 % (42.0-52.0) Mean Corpuscular Volume 92.2 fl (82.0-101.0) Mean Corpuscular Hemoglobin 29.1 pg (29.0-33.0) Mean Corpuscular 31.5 g/dl (32.0-37.0) Hemoglobin Concent Red Cell Distribution Width 17.2 % (11.5-14.5) Platelet Count 365 10^3/UL (140-415) Mean Platelet Volume 10.9 fl (7.4-10.4) Immature Granulocytes % 2.200 % (0.001-0.429) Neutrophils % 87.8 % (39.0-77.0) Lymphocytes % 3.6 % (15.0-51.0) Monocytes % 3.9 % (0.0-11.0) Eosinophils % 1.4 % (0.0-7.0) Basophils % 1.1 % (0.0-2.0) Nucleated Red Blood Cells % 0.1 /100WBC (0.0-0.0) Immature Granulocytes # 0.460 10^3/ul (0.0-0.031) Neutrophils # 18.5 10^3/ul (1.6-7.5) Lymphocytes # 0.8 10^3/ul (0.8-2.9) Monocytes # 0.8 10^3/ul (0.3-0.9) Eosinophils # 0.3 10^3/ul (0.0-0.5) Basophils # 0.2 10^3/ul (0.0-0.1) Nucleated Red Blood Cells # 0.0 10^3/ul (0.0-0.0) Sodium Level 132 mmol/L (135-144) Potassium Level 4.3 mmol/L (3.5-5.1) Chloride Level 100 mmol/L (97-110) Carbon Dioxide Level 22 mmol/L (21-31) Anion Gap 10 (5-13) Blood Urea Nitrogen 11 mg/dl (7-20) Creatinine 0.82 mg/dl (0.61-1.24) Est Glomerular Filtrat > 60 mL/min (>60) Rate mL/min Glucose Level 88 mg/dl (70-220) Calcium Level 8.6 mg/dl (8.4-10.2) Total Bilirubin 0.9 mg/dl (0.2-1.3) Direct Bilirubin 0.00 mg/dl (0.00-0.20) Indirect Bilirubin 0.9 mg/dl (0-1.1) Aspartate Amino 399 IU/L (15-46) Transf (AST/SGOT) Alanine 711 IU/L (13-69) Aminotransferase (ALT/SGPT) Alkaline Phosphatase 95 IU/L (42-121) Total Protein 5.6 g/dl (6.1-8.1) Albumin 3.6 g/dl (3.3-4.9) Globulin 2.00 g/dl (1.3-3.2) Albumin/Globulin Ratio 1.80 RUSS WORRELL V. SALES REPRESENTATIVE PRINTING Sep 08, 2018 10:11
--- NOTE | 2018-09-08 11:33 | CONS ---
Assessment/Plan Assessment/Plan Assessment/Plan (Daily) Pt has been evaluated for abdominal pain and no specific issue was found. The CBC is acceptable with Hgb 11.6, plt 365 and WBC ~21K. He is going to be discharged shortly. I would continue Jakafi and asked him to arrange office f/u with Dr. Greenfield. Consultation Date/Type/Reason Admit Date/Time Type of Consult Hematology Reason for Consultation PRV Requesting Provider: ROB SO Date/Time of Note DATE: 09/08/18 TIME: 11:25 Hx of Present Illness 68 yo man with PRV admitted for abdominal pain that has resolved. He usually sees Dr. Greenfield and has been on Jakafi. No bleeding issues now. See prior records for more details. Past Medical History Home Meds Active Scripts Pantoprazole* (Protonix*) 40 Mg Tablet.dr, 40 MG PO BID, #60 TAB Prov:RUSS WORRELL V. RELIABILITY TECHNICIAN 09/08/18 Sucralfate* (Carafate*) 1 Gm/10 Ml Susp, 1 GM PO QID, #120 DOSE Prov:WORRELLSHILPAA V. RELIABILITY TECHNICIAN 09/08/18 [place]-3/Dha/Epa/Fish Oil (Fish Oil 1,000 mg Softgel) 1,000 Mg Capsule, 1000 MG PO BID, #60 CAP Prov:RUSS WORRELL V. RELIABILITY TECHNICIAN 09/05/18 Sennosides* (Senna Lax*) 8.6 Mg Tablet, 2 TAB PO BID, #60 TAB Prov:WORRELLRUSS V. RELIABILITY TECHNICIAN 09/05/18 Docusate Sodium* (Colace*) 100 Mg Capsule, 100 MG PO TID, #30 CAP Prov:HAFSA CHAVIS MD 08/24/18 Oxycodone HCl/Acetaminophen (Percocet 5-325 mg Tablet) 1 Each Tablet, 1 EACH PO Q6, #20 TAB Prov:HAFSA CHAVIS MD 08/24/18 Reported Medications Apixaban* (Eliquis*) 5 Mg Tablet, 5 MG PO BID, TAB 08/06/18 Nitroglycerin* (Nitrostat*) 0.4 Mg Tab.subl, 0.4 MG SL Q5MIN PRN for CHEST PAIN, BOTTLE 08/06/18 Tamsulosin Hcl* (Flomax*) 0.4 Mg Cap.er.24h, 0.4 MG PO HS, CAP 08/06/18 Ruxolitinib Phosphate (Jakafi) 20 Mg Tablet, 20 MG PO BID, TAB 08/06/18 Metoprolol Tartrate* (Lopressor*) 50 Mg Tab, 50 MG PO BID, #60 TAB 08/06/18 Dicyclomine HCl (Dicyclomine HCl) 10 Mg Capsule, 10 MG PO TID PRN for DIARRHEA 08/06/18 Allopurinol* (Allopurinol*) 100 Mg Tablet, 100 MG PO TID, TAB 08/06/18 Discontinued Reported Medications Omeprazole* (Omeprazole*) 20 Mg Capsule.dr, 20 MG PO DAILY, #30 CAP 08/06/18 Discontinued Scripts Naloxone HCl nasal spray (Narcan 4 mg/0.1 mL nasal) 4 Mg [place], 4 MG NS .Q2-3MIN for OPIOID OVERDOSE, #2 SPRAY 0 Refills [place] 0.1 mL into one nostril. Repeat with second device into other nostril after 2-3 minutes if no or minimal response Prov:HAFSA CHAVIS MD 08/24/18 Medications Current Medications Allopurinol (Zyloprim) 100 mg TID PO Last administered on 09/07/18at 13:09; Admin Dose 100 MG; Start 09/07/18 at 09:00 Apixaban (Eliquis) 5 mg BID PO Last administered on 09/08/18at 08:53; Admin Dose 5 MG; Start 09/07/18 at 09:00 Dicyclomine HCl (Bentyl) 10 mg TID PRN PO DIARRHEA; Start 09/06/18 at 23:30 Docusate Sodium (Colace) 100 mg TID PO Last administered on 09/08/18at 08:53; Admin Dose 100 MG; Start 09/07/18 at 09:00 Metoprolol Tartrate (Lopressor) 50 mg BID PO Last administered on 09/07/18at 02:21; Admin Dose 50 MG; Start 09/06/18 at 23:30 Nitroglycerin (Nitroglycerin (Sl Tab) 0.4 Mg) 1 tab PRN PRN SL CHEST PAIN; Start 09/06/18 at 23:30 Fish Oil (Fish Oil) 1,000 mg BID PO Last administered on 09/08/18at 08:53; Admin Dose 1,000 MG; Start 09/07/18 at 09:00 Oxycodone/ Acetaminophen (Percocet (5/ 325)) 1 tab Q6 PO ; Start 09/07/18 at 00:00 Senna (Senokot) 2 tab BID PO Last administered on 09/08/18at 08:53; Admin Dose 2 TAB; Start 09/07/18 at 09:00 Tamsulosin HCl (Flomax) 0.4 mg HS PO ; Start 09/07/18 at 21:00 Miscellaneous Information 4 mg Q2-3MIN NS ; Start 09/06/18 at 23:30; Status UNV Miscellaneous Information 20 mg BID PO ; Start 09/07/18 at 09:00; Status UNV Pantoprazole (Protonix Tab) 40 mg DAILY@06 PO Last administered on 09/08/18at 04:59; Admin Dose 40 MG; Start 09/07/18 at 06:00 Hydromorphone HCl (Dilaudid) 1 mg Q4H PRN IV SEVERE PAIN LEVEL 7-10 Last administered on 09/07/18at 00:14; Admin Dose 1 MG; Start 09/07/18 at 00:00 Sucralfate (Carafate Susp) 1 gm QID PO Last administered on 09/08/18at 08:54; Admin Dose 1 GM; Start 09/07/18 at 21:00 Ondansetron HCl (Zofran Inj) 4 mg Q4H PRN IV NAUSEA AND/OR VOMITING Last administered on 09/08/18at 00:36; Admin Dose 4 MG; Start 09/08/18 at 00:00 Allergies: Coded Allergies: No Known Allergy (Unverified , 09/07/18) Past Surgical History Past Surgical Hx: coronary bypass surgery Social History Alcohol Use: none Smoking Status: Former smoker Drug Use: none Exam/Review of Systems Exam Vitals Vital Signs Date Temp Pulse Resp B/P (MAP) Pulse Ox O2 O2 Flow FiO2 Time Delivery Rate 09/08/18 98.4 76 17 114/73 96 Room Air 08:06 (87) 09/07/18 2.0 20:20 Intake and Output 09/07/18 09/07/18 09/08/18 1515:00 23:00 07:00 IntakeIntake Total 50 ml 880 ml 240 ml OutputOutput Total 1200 ml 900 ml 800 ml BalanceBalance -1150 ml -20 ml -560 ml Constitutional: alert Head: normocephalic Eyes: nl conjunctiva Neck: supple Respiratory: clear to auscultation Cardiovascular: regular rate and rhythm Gastrointestinal: soft, non-tender Results Result Diagram: 09/08/18 0431 09/08/18 0431 Results 24hrs Laboratory Tests Test 09/07/18 12:01 09/08/18 04:31 Lab Scanned Report REFERENCE LAB White Blood Count 21.1 #H Red Blood Count 3.99 L Hemoglobin 11.6 L Hematocrit 36.8 L Mean Corpuscular Volume 92.2 Mean Corpuscular Hemoglobin 29.1 Mean Corpuscular Hemoglobin Concent 31.5 L Red Cell Distribution Width 17.2 H Platelet Count 365 Mean Platelet Volume 10.9 H Immature Granulocytes % 2.200 H Neutrophils % 87.8 H Lymphocytes % 3.6 L Monocytes % 3.9 Eosinophils % 1.4 Basophils % 1.1 Nucleated Red Blood Cells % 0.1 H Immature Granulocytes # 0.460 H Neutrophils # 18.5 H Lymphocytes # 0.8 Monocytes # 0.8 Eosinophils # 0.3 Basophils # 0.2 H Nucleated Red Blood Cells # 0.0 Sodium Level 132 L Potassium Level 4.3 Chloride Level 100 Carbon Dioxide Level 22 Anion Gap 10 Blood Urea Nitrogen 11 Creatinine 0.82 Est Glomerular Filtrat Rate mL/min > 60 Glucose Level 88 Calcium Level 8.6 Total Bilirubin 0.9 Direct Bilirubin 0.00 Indirect Bilirubin 0.9 Aspartate Amino Transf (AST/SGOT) 399 #H Alanine Aminotransferase (ALT/SGPT) 711 H Alkaline Phosphatase 95 Total Protein 5.6 L Albumin 3.6 Globulin 2.00 Albumin/Globulin Ratio 1.80 Medications Medication Current Medications Allopurinol (Zyloprim) 100 mg TID PO Last administered on 09/07/18at 13:09; Admin Dose 100 MG; Start 09/07/18 at 09:00 Apixaban (Eliquis) 5 mg BID PO Last administered on 09/08/18at 08:53; Admin Dose 5 MG; Start 09/07/18 at 09:00 Dicyclomine HCl (Bentyl) 10 mg TID PRN PO DIARRHEA; Start 09/06/18 at 23:30 Docusate Sodium (Colace) 100 mg TID PO Last administered on 09/08/18 08:53; Admin Dose 100 MG; Start 09/07/18 at 09:00 Metoprolol Tartrate (Lopressor) 50 mg BID PO Last administered on 09/07/18 02:21; Admin Dose 50 MG; Start 09/06/18 at 23:30 Nitroglycerin (Nitroglycerin (Sl Tab) 0.4 Mg) 1 tab PRN PRN SL CHEST PAIN; Start 09/06/18 at 23:30 Fish Oil (Fish Oil) 1,000 mg BID PO Last administered on 09/08/18 08:53; Admin Dose 1,000 MG; Start 09/07/18 at 09:00 Oxycodone/ Acetaminophen (Percocet (5/ 325)) 1 tab Q6 PO ; Start 09/07/18 at 00:00 Senna (Senokot) 2 tab BID PO Last administered on 09/08/18 08:53; Admin Dose 2 TAB; Start 09/07/18 at 09:00 Tamsulosin HCl (Flomax) 0.4 mg HS PO ; Start 09/07/18 at 21:00 Miscellaneous Information 4 mg Q2-3MIN NS ; Start 09/06/18 at 23:30; Status UNV Miscellaneous Information 20 mg BID PO ; Start 09/07/18 at 09:00; Status UNV Pantoprazole (Protonix Tab) 40 mg DAILY@06 PO Last administered on 09/08/18 04:59; Admin Dose 40 MG; Start 09/07/18 at 06:00 Hydromorphone HCl (Dilaudid) 1 mg Q4H PRN IV SEVERE PAIN LEVEL 7-10 Last administered on 09/07/18 00:14; Admin Dose 1 MG; Start 09/07/18 at 00:00 Sucralfate (Carafate Susp) 1 gm QID PO Last administered on 09/08/18 08:54; Admin Dose 1 GM; Start 09/07/18 at 21:00 Ondansetron HCl (Zofran Inj) 4 mg Q4H PRN IV NAUSEA AND/OR VOMITING Last administered on 09/08/18 00:36; Admin Dose 4 MG; Start 09/08/18 at 00:00 COLIN PEREZ MD Sep 08, 2018 11:33
--- NOTE | 2018-09-08 13:01 | PAC ---
Date/Time of Note Date/Time of Note DATE: 09/08/18 TIME: 13:01 Post-Anesthesia Notes Post-Anesthesia Note Last documented vital signs Vital Signs Date Temp Pulse Resp B/P (MAP) Pulse Ox O2 O2 Flow FiO2 Time Delivery Rate 09/08/18 98.4 76 17 114/73 96 Room Air 08:06 (87) 09/07/18 2.0 20:20 Activity: WNL Respiratory function: WNL Cardiovascular function: WNL Mental status: Baseline Pain reasonably controlled: Yes Hydration appropriate: Yes Nausea/Vomiting absent: Yes BELLO GARCIA Sep 08, 2018 13:01
== END 2018-09-08 11:35 | disposition home or self-care (01) | DRG 392 ==
LOC: E/R 19:19 → PP2 23:18
PROVIDERS: ADMIT Family Medicine; ATTEND Family Medicine
PROC: 0DB68ZX Excision of Stomach, Via Natural or Artificial Opening Endoscopic, Diagnostic (ICD-10-PCS; principal; 2018-09-07 18:30)
DX: K29.70 Gastritis, unspecified, without bleeding (principal); C94.6 Myelodysplastic disease, not elsewhere classified; N40.0 Benign prostatic hyperplasia without lower urinary tract symptoms; I10 Essential (primary) hypertension; D45 Polycythemia vera; I25.10 Atherosclerotic heart disease of native coronary artery without angina pectoris; G89.29 Other chronic pain; D64.9 Anemia, unspecified; F41.9 Anxiety disorder, unspecified; R16.1 Splenomegaly, not elsewhere classified; K59.09 Other constipation; E78.5 Hyperlipidemia, unspecified; K20.9 Esophagitis, unspecified; M54.5 Low back pain; F32.9 Major depressive disorder, single episode, unspecified; Z95.1 Presence of aortocoronary bypass graft
CPT/HCPCS: 36415; 71045; 74176; 80053; 81001; 81003; 82378; 83690; 83735; 85025; 85651; 86140; 86706; 86709; 86803; 87086; 87340; 88305; 88312; 96374; 96375; J1170; J2405; J2543; J3475; J7030

== ENCOUNTER 2018-09-14 09:09 | Emergency (ER) | payer MEDICARE, OTHER ==
[~2018-09-14] VITALS: Wt 65.0 kg
[~2018-09-14 09:09] MED LIST changes: +CARAS PO; -NALO4SPR NS; -OMEP20CA16 PO; +PANT40TA3 PO
[2018-09-14 09:18] VITALS: BP 143/89; PULSE 90; RESP 18
[2018-09-14] MEDS ORDERED: OXYC-279 PO (10:20)
[2018-09-14] MEDS ORDERED: NALO4SPR NS (10:20)
[2018-09-14] MEDS ORDERED: KETOROLAC 30 MG INJ IM STA (10:21)
[2018-09-14] MEDS ORDERED: OXYCODONE/ACETAMINOPHEN (5/325) TAB PO ONE (10:30)
--- NOTE | 2018-09-14 16:17 | ERD ---
ER Documentation Chief Complaint Chief Complaint NON TRAUMATIC LOW BACK PAIN CHRONIC. PT HAS NO RELEIF WITH [place] AT HOME. HPI 68-year-old male presents with complaint of chronic back pain. States that he has been taking [place] as well as Percocet at home has not experienced relief. Patient states that he has a history of cancer and he has been to our ER many times in the last couple months with pain issues. Patient states that he does not have a pain management doctor. Denies chest pain, SOB, flank pain, dsyuria, hematuria, saddle numbness, incontinence, pain worse at night or when supine, weight loss, night sweats, fatigue, focal neurological defecits, recent bacterial infection, IV drug use, or immunosuppression. ROS All systems reviewed and are negative except as per history of present illness. Medications Home Meds Active Scripts Oxycodone HCl/Acetaminophen (Percocet 5-325 mg Tablet) 1 Each Tablet, 1 EACH PO Q6, #10 TAB Prov:JESUS COLVIN 09/14/18 Naloxone HCl nasal spray (Narcan 4 mg/0.1 mL nasal) 4 Mg [place], 4 MG NS .Q2-3MIN for OPIOID OVERDOSE, #2 SPRAY 0 Refills [place] 0.1 mL into one nostril. Repeat with second device into other nostril after 2-3 minutes if no or minimal response Prov:JESUS COLVIN 09/14/18 Pantoprazole* (Protonix*) 40 Mg Tablet.dr, 40 MG PO BID, #60 TAB Prov:WORRELLRUSS V. ARTIFICIAL BREAST FABRICATOR 09/08/18 Sucralfate* (Carafate*) 1 Gm/10 Ml Susp, 1 GM PO QID, #120 DOSE Prov:WORRELL,RUSS V. ARTIFICIAL BREAST FABRICATOR 09/08/18 [place]-3/Dha/Epa/Fish Oil (Fish Oil 1,000 mg Softgel) 1,000 Mg Capsule, 1000 MG PO BID, #60 CAP Prov:WORRELL,RUSS V. ARTIFICIAL BREAST FABRICATOR 09/05/18 Sennosides* (Senna Lax*) 8.6 Mg Tablet, 2 TAB PO BID, #60 TAB Prov:WORRELL,RUSS V. ARTIFICIAL BREAST FABRICATOR 09/05/18 Docusate Sodium* (Colace*) 100 Mg Capsule, 100 MG PO TID, #30 CAP Prov:HAFSA CHAVIS MD 08/24/18 Oxycodone HCl/Acetaminophen (Percocet 5-325 mg Tablet) 1 Each Tablet, 1 EACH PO Q6, #20 TAB Prov:HAFSA CHAVIS MD 08/24/18 Reported Medications Apixaban* (Eliquis*) 5 Mg Tablet, 5 MG PO BID, TAB 08/06/18 Nitroglycerin* (Nitrostat*) 0.4 Mg Tab.subl, 0.4 MG SL Q5MIN PRN for CHEST PAIN, BOTTLE 08/06/18 Tamsulosin Hcl* (Flomax*) 0.4 Mg Cap.er.24h, 0.4 MG PO HS, CAP 08/06/18 Ruxolitinib Phosphate (Jakafi) 20 Mg Tablet, 20 MG PO BID, TAB 08/06/18 Metoprolol Tartrate* (Lopressor*) 50 Mg Tab, 50 MG PO BID, #60 TAB 08/06/18 Dicyclomine HCl (Dicyclomine HCl) 10 Mg Capsule, 10 MG PO TID PRN for DIARRHEA 08/06/18 Allopurinol* (Allopurinol*) 100 Mg Tablet, 100 MG PO TID, TAB 08/06/18 Discontinued Reported Medications Omeprazole* (Omeprazole*) 20 Mg Capsule.dr, 20 MG PO DAILY, #30 CAP 08/06/18 Allergies Allergies: Coded Allergies: No Known Allergy (Unverified , 09/07/18) PMhx/Soc History of Surgery: Yes (Coronary Bypass) Anesthesia Reaction: No Hx Neurological Disorder: No Hx Respiratory Disorders: No Hx Cardiac Disorders: Yes (CAD) Hx Psychiatric Problems: No Hx Miscellaneous Medical Probl: No Hx Alcohol Use: Yes ("Long time ago") Hx Substance Use: No Hx Tobacco Use: No FmHx Family History: No diabetes, No coronary disease, No other Physical Exam Vitals Vital Signs Date Temp Pulse Resp B/P (MAP) Pulse Ox O2 O2 Flow FiO2 Time Delivery Rate 09/14/18 98.8 90 18 143/89 98 09:18 (107) Physical Exam Const: No acute distress Head: Atraumatic Eyes: Normal Conjunctiva ENT: Normal External Ears, Nose and Mouth. Neck: Full range of motion. No meningismus. Resp: Clear to auscultation bilaterally Cardio: Regular rate and rhythm, no murmurs Abd: Soft, non tender, non distended. Normal bowel sounds Skin: No petechiae or rashes Back: No midline or flank tenderness Ext: No cyanosis, or edema. Distal pulse sensation lower extremities intact. No saddle numbness. Neur: Awake and alert Psych: Normal Mood and Affect Results 24 hrs Current Medications Medications Dose Sig/Tamiko Start Time Status Last (Trade) Ordered Route PRN Stop Time Admin Dose Reason Admin Ketorolac 30 mg ONCE STAT 09/14/18 DC 09/14/18 Tromethamine IM 10:21 10:30 (Toradol) 09/14/18 10:22 Oxycodone/ 1 tab ONCE ONCE 09/14/18 DC 09/14/18 Acetaminophen PO 10:30 10:29 (Percocet 09/14/18 10:31 (5/ 325)) Procedures/MDM MDM: Given patient's frequent visits to the ER and recent admission for intractable back pain, I discussed the case with my supervising physician Dr. Hopper and he stated that patient was not fit for admission but rather would need to be discharged with follow-up by pain management. I discussed this with patient and he stated that he would agree to be discharged with pain medication and he would enroll in pain management. This was discussed with patient using patient's son as site interpreter. Patient was given 1 Percocet in the ER and discharged with Rx for Percocet. Patient given prescription for naloxone and educated on its use in case of possible overdose. I have low suspicion for epidural abscess, cauda equina, abdominal aortic aneurysm, pyelonephritis, aortic dissection, spinal fracture, or other emergent conditions based on patient history and exam findings. Patient told if they experience leg weakness or numbness, or incontinence they need to return to the ER immediately. At this time, patient is stable for discharge and outpatient management. I have instructed the patient to follow-up with his/her primary care physician in 1-2 days. I have discussed with the patient the possibility of needing to see a specialist for further workup and imaging studies if symptoms persist. I have instructed the patient to promptly return to the ER for any new or worsening symptoms including but not limited to increased pain, fever, nausea, vomiting, weakness or LOC. The patient and/or family expressed understanding of and agreement with this plan. All questions were answered. Home care instructions were provided. [Communication with patient both during the exam and instructions for discharge were performed with using a food science technician . Patient gave verbal confirmation to the practitioner, through the food science technician, that they understood everythign that was being said to them.] DISCLAIMER: Inadvertent spelling and grammatical errors are likely due to EHR/dictation software use and do not reflect on the overall quality of patient care. Also, please note that the electronic time recorded on this note does not necessarily reflect the actual time of the patient encounter. Departure Diagnosis: Primary Impression: Back pain Condition: Stable Patient Instructions: Back Pain (Acute Or Chronic) Referrals: [facility] YOU HAVE RECEIVED A MEDICAL SCREENING EXAM AND THE RESULTS INDICATE THAT YOU DO NOT HAVE A CONDITION THAT REQUIRES URGENT TREATMENT IN THE EMERGENCY DEPARTMENT. FURTHER EVALUATION AND TREATMENT OF YOUR CONDITION CAN WAIT UNTIL YOU ARE SEEN IN YOUR DOCTORS OFFICE WITHIN THE NEXT 1-2 DAYS. IT IS YOUR RESPONSIBILITY TO MAKE AN APPOINTMENT FOR FOLOW-UP CARE. IF YOU HAVE A PRIMARY DOCTOR --you should call your primary doctor and schedule an appointment IF YOU DO NOT HAVE A PRIMARY DOCTOR YOU CAN CALL OUR PHYSICIAN REFERRAL HOTLINE AT IF YOU CAN NOT AFFORD TO SEE A PHYSICIAN YOU CAN CHOSE FROM THE FOLLOWING [facility] [address] [facility]. [facility] [address] [facility]. [facility] [address] [facility] [address] [facility]. [facility] [address] [facility]. [facility]. [address] [place] Additional Instructions: FOLLOW UP WITH YOUR PRIMARY CARE PHYSICIAN TOMORROW.Return to this facility if you are not improving as expected. If your pain is not being managed properly, please ask your primary care provider for referral to ornamental painter. JESUS COLVIN Sep 14, 2018 16:17
== END 2018-09-14 10:53 | disposition home or self-care (01) ==
LOC: FTE 09:09
DX: I25.10 Atherosclerotic heart disease of native coronary artery without angina pectoris (principal); Z85.9 Personal history of malignant neoplasm, unspecified
CPT/HCPCS: 96372; 99284; J1885